=== PATIENT | male | born 1985 | race Caucasian/White ===

== ENCOUNTER 2017-01-06 12:47 | Emergency (ER) | payer OTHER ==
[~2017-01-06] VITALS: Ht 177.8 cm; Wt 157.6 kg
[2017-01-06 12:51] VITALS: BP 137/90; TEMP 36.5; Ht 177.8 cm; Wt 157.6 kg
[2017-01-06] MEDS ORDERED: TIZA4CAP PO (13:06)
[2017-01-06] MEDS ORDERED: ESCI10TA17 PO (13:06)
--- NOTE | 2017-01-06 13:18 | DIAGNOSTIC IMAGING REPORT ---
RIGHT SHOULDER 3 VIEWS HISTORY: R shoulder pain Right COMPARISON: None. FINDINGS: There is no fracture or dislocation. Soft tissues are unremarkable. No radiopaque foreign bodies. The right clavicle is intact. Mild AC joint arthrosis. IMPRESSION: No fractures. Mild AC joint arthrosis. Electronically signed by: Osito Youngblood M.D. 01/06/2017 1:16 PM Dictated Date/Time: 01/06/2017 1:15 PM
[2017-01-06] MEDS ORDERED: TRAM-10 PO (13:36)
[2017-01-06] MEDS ORDERED: IBUP-1451 PO (13:36)
[2017-01-06 13:52] VITALS: PULSE 87; O2SAT 96
--- NOTE | 2017-01-06 17:01 | EMERGENCY ROOM VISIT NOTE ---
History First contact with patient: 12:58 Chief Complaint: SHOULDER PAIN Stated Complaint: SHOULDER POPPING IN/OUT NUMBNESS IN BOTH HANDS History of Present Illness The patient is a 31 year old male who presents to the Emergency Room with complaints of persistent right shoulder pain after injuring his shoulder at work on Sunday. 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 The patient now reports that it feels like his shoulder once to pop in and out of place. He denies any pain extending into the neck region. He does report occasional paresthesias of the right upper extremity. The patient is [id number], and rates his discomfort an 8 out of 10. Review of Systems 10 system review was performed and was negative except for pertinent positives and negatives as indicated in history of present illness Past Medical/Surgical History Medical Problems: (1) No significant past medical history Surgical Problems: (1) No history of previous surgery Family History Unremarkable Social History Smoking Status: Current Every Day Smoker Alcohol Use: occasionally Drug Use: none Marital Status: single Occupation Status: employed Current/Historical Medications Scheduled Escitalopram (Lexapro), 20 MG PO DAILY Tizanidine (Zanaflex), 4 MG PO QPM Scheduled PRN Ibuprofen Tab (Motrin), 800 MG PO Q8H PRN for Pain Tramadol (Ultram), 1-2 TAB PO Q4H PRN for Pain Allergies Coded Allergies: Amoxicillin (Unverified Allergy, Severe, ANAPHYLAXIS, 01/06/17) Penicillins (Unverified Allergy, Severe, ANAPHYLAXIS, 01/06/17) Physical Exam Vital Signs Date Time Temp Pulse Resp B/P Pulse Ox O2 Delivery O2 Flow Rate FiO2 01/06/17 13:52 87 18 96 01/06/17 12:51 36.5 99 18 137/90 99 Room Air Physical Exam CONSTITUTIONAL: Morbidly obese male, alert and oriented X 3 with positive affect. Patient does not appear in any acute distress. HEENT: Normocephalic, atraumatic. Pupils equal, round and reactive. NECK: Full active range of motion without discomfort. RESPIRATORY: Clear to auscultation bilaterally with no wheezing, crackles, rhonchi or stridor. Deep breathing does not worsen the patient's discomfort. CARDIOVASCULAR: Regular rate and rhythm with no murmurs, rubs or gallops. GASTROINTESTINAL: Bowel sounds present in all quadrants. Soft and nontender to palpation. MUSCULOSKELETAL: Examination of the right shoulder does not show any obvious soft tissue edema, ecchymosis or erythema. The patient is tender over the bicipital groove and upper biceps region. No palpable bulging or ecchymosis noted. Resisted flexion worsens the patient's discomfort in the shoulder. He also has mild tenderness over the acromioclavicular joint. Minimal tenderness posteriorly. The patient has abduction and fourth flexion of approximately 90 , limited by discomfort. Gentle internal and external rotation does not cause significant discomfort. 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 Distal pulses are intact. INTEGUMENTARY: No rash or other significant dermatologic conditions noted. NEUROLOGIC: Right deltoid sensation is intact. Right hand and fingers are also grossly sensory intact. Deep tendon reflexes of the upper extremities are 2+ and symmetric bilaterally. Medical Decision & Procedures ER Provider Diagnostic Interpretation: My interpretation of right shoulder x-rays does not show any acute fractures or dislocation. Radiologist report is as follows: RIGHT SHOULDER 3 VIEWS HISTORY: R shoulder pain Right COMPARISON: None. FINDINGS: There is no fracture or dislocation. Soft tissues are unremarkable. No radiopaque foreign bodies. The right clavicle is intact. Mild AC joint arthrosis. IMPRESSION: No fractures. Mild AC joint arthrosis. ED Course Patient history and physical exam were performed. Nurse's notes were reviewed. Vital signs were reviewed, showing a blood pressure 137/90. X-rays of the right shoulder were normal. The patient was encouraged to follow-up with his Worker's Compensation approved orthopedic surgeon for further reevaluation and management. A sling was dispensed, and the patient was provided a note for no use of the right arm until released by orthopedics. Ibuprofen and Tylenol in alternating fashion as needed for pain relief. The patient was provided a prescription for ibuprofen 800 mg and Ultram 50 mg. The patient was happy with plan of care, voiced understanding of all discharge instructions, refused any analgesics while in the emergency department, and rated his pain a 4 out of 10 at the conclusion of my exam. Medical Decision Differentials considered included acute bursitis, rotator cuff injury, acute tendinitis, axillary plexitis and impingement syndrome. Impression Primary Impression: Right shoulder injury Additional Impression: Work related injury Departure Information Prescriptions Ibuprofen Tab (MOTRIN) 800 Mg Tab 800 MG PO Q8H Y for Pain, #30 TAB For Initial Treatment Prov: Dot, Kirk Garth,PA 01/06/17 Tramadol (Ultram) 50 Mg Tab 1-2 TAB PO Q4H Y for Pain, #20 TAB For Initial Treatment Prov: Kirk Chris PA 01/06/17 Referrals No Doctor, Assigned (PCP) Patient Instructions My [facility] Problem Qualifiers Primary Impression: Right shoulder injury Encounter type: initial encounter Qualified Codes: S49.91XA - Unspecified injury of right shoulder and upper arm, initial encounter
== END 2017-01-06 13:53 | disposition home or self-care (01) ==
LOC: C.EDB 12:50 → C.EDD 13:53
DX: S49.91XA Unspecified injury of right shoulder and upper arm, initial encounter (principal); X50.0XXA Overexertion from strenuous movement or load, initial encounter; Y99.0 Civilian activity done for income or pay; F17.200 Nicotine dependence, unspecified, uncomplicated

== ENCOUNTER 2017-09-02 13:24 | Inpatient (IN) | payer BC, OTHER ==
[~2017-09-02] VITALS: Ht 180.3 cm; Wt 167.5 kg
[~2017-09-02 13:24] MED LIST: ESCI10TA17 PO; TIZA4CAP PO
[2017-09-02] MEDS ORDERED: MoRPHine SULFATE 4 MG/ML 1 ML CARP\\VIAL IV STA (13:41)
[2017-09-02] MEDS ORDERED: ONDANSETRON INJ 2 MG/ML 2 ML VIAL IV STA (13:41)
[2017-09-02] MEDS ORDERED: ESCI1TAB10 PO (13:46)
[2017-09-02] MEDS ORDERED: LEVO25TA PO (13:46)
[2017-09-02] MEDS ORDERED: ALLO100T PO (13:46)
[2017-09-02 14:21] LABS: BASO % 0.2 %; BASO ABS # 0.02 K/uL (0-0.2); EOS % 0.2 %; EOS ABS # 0.02 K/uL (0-0.5); HEMATOCRIT 41.9 % (42-52); HEMOGLOBIN 14.4 g/dL (14.0-18.0); IG# 0.05 K/uL (0.00-0.02); LYMPH % 6.1 %; LYMPH ABS # 0.76 K/uL (1.2-3.4); MEAN CELL VOLUME 85.2 fL (80-100); MEAN CORPUSCULAR HEMOGLOBIN 29.3 pg (25-34); MEAN CORPUSCULAR HGB CONC 34.4 g/dl (32-36); MEAN PLATELET VOLUME 10.4 fL (7.4-10.4); MONO % 6.2 %; MONO ABS # 0.77 K/uL (0.11-0.59); NEUT % 86.9 %; PLATELET COUNT 129 K/uL (130-400); RED CELL DISTRIBUTION WIDTH CV 14.9 % (11.5-14.5); RED CELL DISTRIBUTION WIDTH SD 46.4 fL (36.4-46.3); WHITE BLOOD COUNT 12.52 K/uL (4.8-10.8)
[2017-09-02 14:31] LABS: INFLUENZA B ANTIGEN Neg for Influ B (NEG)
[2017-09-02] MEDS ORDERED: ACETAMINOPHEN 500 MG TAB PO ONE (14:31)
[2017-09-02 14:41] LABS: ALBUMIN 3.2 gm/dl (3.4-5.0); CREATININE 1.34 mg/dl (0.60-1.40)
[2017-09-02 14:43] LABS: INR 1.1 (0.9-1.1); PTT PATIENT 34.2 SECONDS (21.0-31.0); TOTAL PROTEIN 7.5 gm/dl (6.4-8.2)
[2017-09-02 15:15] LABS: INFLUENZA A PCR Neg for Influ A (NEG); INFLUENZA B PCR Neg for Influ B (NEG)
--- NOTE | 2017-09-02 15:46 | DIAGNOSTIC IMAGING REPORT ---
RIGHT LOWER EXTREMITY VENOUS DOPPLER CLINICAL HISTORY: Right leg pain. COMPARISON STUDY: No previous studies for comparison. TECHNIQUE: Sonography of the deep venous system of the right lower extremity was performed. Compression and augmentation were evaluated. FINDINGS: The right common femoral, superficial femoral and popliteal veins were compressible. Augmentation was normal. The calf vessels were suboptimally assessed on this exam due to suboptimal penetration. A few morphologically benign right inguinal lymph nodes are incidentally noted. IMPRESSION: Right calf vessels suboptimally visualized on this study but no evidence of deep venous thrombus within the right lower extremity. Electronically signed by: Mio Gomez M.D. 09/02/2017 3:45 PM Dictated Date/Time: 09/02/2017 3:44 PM
[2017-09-02] MEDS ORDERED: SULFAMETHOXAZOLE/TRIMETHOPRIM DS 800/160MG TAB PO STA (15:48)
[2017-09-02] MEDS ORDERED: CEFAZOLIN SOD 1000MG/5 ML IV PUSH IV STA (15:48)
[2017-09-02] MEDS ORDERED: IBUPROFEN 600 MG TAB PO STA (16:09)
[2017-09-02] MEDS ORDERED: CLINDAMYCIN 600 MG/54 ML D5W IV ONE (16:15)
[2017-09-02] MEDS ORDERED: LEVO50TA6 PO (17:27)
[2017-09-02] MEDS ORDERED: VANCOMYCIN INJ 1,000 MG in SODIUM CHLORIDE 0.9% 250ML 250 ML IV STA (17:29)
[2017-09-02 17:40] VITALS: O2SAT 100; Ht 180.3 cm; Wt 167.5 kg
--- NOTE | 2017-09-02 17:48 | EMERGENCY ROOM VISIT NOTE ---
History Report prepared by Braxton: Lindy Paz Under the Supervision of: Dr. Kraig De Jesus M.D. First contact with patient: 13:33 Chief Complaint: FEVER Stated Complaint: HIGH FEVER (104) VOMITING,DIARREAH, R LEG RASH History of Present Illness The patient is a 31 year old male who presents to the Emergency Room with complaints of persistent fever starting yesterday. He was sent to the ED from urgent care. Several days ago, the patient and his family had the stomach flu with vomiting and diarrhea. Yesterday, he started having a rash on his right leg which is painful and a fever of 104. He has a history of psoriasis. He is having some pain in his groin. He thinks that he might have pulled his groin while vomiting. He last vomited 2 days ago. He reports generalized weakness and body aches which started yesterday. He has been taking Tylenol and ibuprofen to no significant relief of his symptoms. He is currently feeling nauseous and dizzy. He denies any chest pain, SOB, abdominal pain, or cough. He is a smoker. He denies any history of blood clots. He was seen at an urgent care center and told to come here for evaluation of possible DVT. Source of History: patient, spouse/significant other Onset: yesterday Position: other (global) Symptom Intensity: 104 Quality: other (fever) Timing: other (persistent) Associated Symptoms: + nausea, + vomiting (resolved), + diarrhea, + weakness , + rash, No cough, No chest pain, No SOB, No abdominal pain Note: Pt reports body aches, groin pain. Review of Systems See HPI for pertinent positives & negatives. A total of 10 systems reviewed and were otherwise negative. Past Medical & Surgical Medical Problems: (1) Cellulitis (2) No significant past medical history Surgical Problems: (1) No history of previous surgery Family History Cancer Diabetes mellitus Heart disease Hypertension Kidney disease Kidney stones Seizures Social History Smoking Status: Current Every Day Smoker Alcohol Use: occasionally Drug Use: none Marital Status: single Occupation Status: employed Current/Historical Medications Scheduled Allopurinol (Zyloprim), 1 TAB PO DAILY Escitalopram Oxalate (Lexapro), 20 MG PO DAILY Levothyroxine Sodium (Levothyroxine Sodium), 1 TAB PO DAILY Allergies Coded Allergies: Amoxicillin (Unverified Allergy, Severe, ANAPHYLAXIS, 09/02/17) Penicillins (Unverified Allergy, Severe, ANAPHYLAXIS, 09/02/17) Azithromycin (Unverified Allergy, Unknown, , 09/02/17) Physical Exam Vital Signs Date Time Temp Pulse Resp B/P (MAP) Pulse Ox O2 Delivery O2 Flow Rate FiO2 09/02/17 16:11 38.6 09/02/17 15:23 37.8 82 20 134/76 100 Room Air 09/02/17 14:34 38.4 09/02/17 13:28 36.4 91 20 130/77 100 Room Air Physical Exam Constitutional: Vital signs reviewed. Eyes: Pupils are equal round reactive to light. Conjunctiva are noninjected. ENT: Pharynx is clear without erythema or exudate. Mucous membranes are moist. Neck supple without meningeal signs. Respiratory: Clear to auscultation bilaterally. Breath sounds are equal bilaterally. Cardiovascular: Regular rate and rhythm. No rubs or gallops. GI: Soft, nondistended and nontender. Bowel sounds are present. Musculoskeletal: Excoriated rash to the medial posterior ankle with erythema extending above the rash without increased warmth. No tenderness to rash. Tenderness to superior calf and the medial thigh. No rash in the groin or upper leg. Integumentary: No cyanosis. Neurological: The patient is awake and alert. No focal deficits. Psychiatric: Normal affect. Medical Decision & Procedures ER Provider Diagnostic Interpretation: Radiology results as stated below per my review and the radiologist's interpretation: RIGHT LOWER EXTREMITY VENOUS DOPPLER CLINICAL HISTORY: Right leg pain. COMPARISON STUDY: No previous studies for comparison. TECHNIQUE: Sonography of the deep venous system of the right lower extremity was performed. Compression and augmentation were evaluated. FINDINGS: The right common femoral, superficial femoral and popliteal veins were compressible. Augmentation was normal. The calf vessels were suboptimally assessed on this exam due to suboptimal penetration. A few morphologically benign right inguinal lymph nodes are incidentally noted. IMPRESSION: Right calf vessels suboptimally visualized on this study but no evidence of deep venous thrombus within the right lower extremity. Electronically signed by: Mio Gomez M.D. 09/02/2017 3:45 PM Dictated Date/Time: 09/02/2017 3:44 PM Laboratory Results 09/02/17 14:10 Red Blood Count 4.92, Mean Corpuscular Volume 85.2, Mean Corpuscular Hemoglobin 29.3, Mean Corpuscular Hemoglobin Concent 34.4, Mean Platelet Volume 10.4, Neutrophils (%) (Auto) 86.9, Lymphocytes (%) (Auto) 6.1, Monocytes (%) (Auto) 6.2, Eosinophils (%) (Auto) 0.2, Basophils (%) (Auto) 0.2, Neutrophils # (Auto) 10.90, Lymphocytes # (Auto) 0.76, Monocytes # (Auto) 0.77, Eosinophils # (Auto) 0.02, Basophils # (Auto) 0.02 09/02/17 14:10 Test 09/02/17 13:58 09/02/17 14:10 09/02/17 17:10 Influenza Type A (RT-PCR) Neg for Influ A (NEG) Influenza Type A Antigen Neg for Influ A (NEG) Influenza Type B Antigen Neg for Influ B (NEG) Influenza Type B (RT-PCR) Neg for Influ B (NEG) White Blood Count 12.52 K/uL (4.8-10.8) Red Blood Count 4.92 M/uL (4.7-6.1) Hemoglobin 14.4 g/dL (14.0-18.0) Hematocrit 41.9 % (42-52) Mean Corpuscular Volume 85.2 fL (80-100) Mean Corpuscular Hemoglobin 29.3 pg (25-34) Mean Corpuscular Hemoglobin Concent 34.4 g/dl (32-36) Platelet Count 129 K/uL (130-400) Mean Platelet Volume 10.4 fL (7.4-10.4) Neutrophils (%) (Auto) 86.9 % Lymphocytes (%) (Auto) 6.1 % Monocytes (%) (Auto) 6.2 % Eosinophils (%) (Auto) 0.2 % Basophils (%) (Auto) 0.2 % Neutrophils # (Auto) 10.90 K/uL (1.4-6.5) Lymphocytes # (Auto) 0.76 K/uL (1.2-3.4) Monocytes # (Auto) 0.77 K/uL (0.11-0.59) Eosinophils # (Auto) 0.02 K/uL (0-0.5) Basophils # (Auto) 0.02 K/uL (0-0.2) RDW Standard Deviation 46.4 fL (36.4-46.3) RDW Coefficient of Variation 14.9 % (11.5-14.5) Immature Granulocyte % (Auto) 0.4 % Immature Granulocyte # (Auto) 0.05 K/uL (0.00-0.02) Prothrombin Time 11.5 SECONDS (9.0-12.0) Prothromb Time International Ratio 1.1 (0.9-1.1) Activated Partial Thromboplast Time 34.2 SECONDS (21.0-31.0) Partial Thromboplastin Ratio 1.3 Anion Gap 5.0 mmol/L (3-11) Est Creatinine Clear Calc Drug Dose 125.5 ml/min Estimated GFR () 80.7 Estimated GFR (Non- 69.6 BUN/Creatinine Ratio 10.3 (10-20) Calcium Level 9.0 mg/dl (8.5-10.1) Total Bilirubin 2.8 mg/dl (0.2-1) Direct Bilirubin 0.7 mg/dl (0-0.2) Aspartate Amino Transf (AST/SGOT) 30 U/L (15-37) Alanine Aminotransferase (ALT/SGPT) 57 U/L (12-78) Alkaline Phosphatase 63 U/L (45-117) Total Protein 7.5 gm/dl (6.4-8.2) Albumin 3.2 gm/dl (3.4-5.0) Lyme Disease IgG Antibody NEG (NEG) Lyme Disease IgM Antibody NEG (NEG) Laboratory results as reviewed by me. Medications Administered Medications (Trade) Dose Ordered Sig/Blanca Route Start Time Stop Time Status Last Admin Dose Admin Morphine Sulfate (MoRPHine SULFATE INJ) 4 mg NOW STAT IV 09/02/17 13:41 09/02/17 13:45 DC 09/02/17 14:29 4 MG Ondansetron HCl (Zofran Inj) 4 mg NOW STAT IV 09/02/17 13:41 09/02/17 13:45 DC 09/02/17 14:28 4 MG Acetaminophen (Tylenol Tab) 1,000 mg STK-MED ONCE PO 09/02/17 14:31 09/02/17 14:32 DC 09/02/17 14:33 1,000 MG Ibuprofen (Motrin Tab) 600 mg NOW STAT PO 09/02/17 16:09 09/02/17 16:10 DC 09/02/17 16:17 600 MG Clindamycin Phosphate (Cleocin 600mg/ 54ml D5W) 600 mg ONE ONCE IV 09/02/17 16:15 09/02/17 16:16 DC 09/02/17 16:15 600 MG ED Course 1335: The patient was evaluated in room B11B. A complete history and physical exam was performed. 1341: Zofran Inj 4 mg IV, Morphine Sulfate 4 mg IV. 1431: Acetaminophen 1000 mg PO. 1549: I reevaluated the patient. I discussed the test results with his . She states he has taken Keflex before without allergy. 1606: I reevaluated the patient. He appeared flushed so I took his temperature which was 38.6. He states he is not sure if he has had Keflex. With amoxicillin , he might have had some trouble breathing, but he is not sure. He will get clindamycin. 1609: Ibuprofen 600 mg PO. 1615: Clindamycin Phosphate 600 mg IV. 1659: I reevaluated the patient. He is not feeling well. He has tenderness to the entire right leg and lymphadenopathy in the groin. I recommended hospitalization for IV antibiotics. They verbalized agreement of the treatment plan. He will be evaluated for further management. 1704: [facility] the patient and his results. The patient will be further evaluated by him. Medical Decision This is a 31-year-old male who presents with fever, rash and leg pain. Differential diagnosis includes cellulitis, lymphangitis, DVT, superficial, colitis, influenza. I did perform a limited focused review of portions of the patient's old chart on the electronic medical record. The patient has had no recent pertinent visits to this hospital. I did evaluate the patient as noted above. IV access was established. I did treat the patient with IV morphine and Zofran. I did order and review the patient's blood work as noted in the electronic medical record. His white blood cell count is elevated. Bilirubin is slightly elevated as well. He does not have any abdominal pain. I did order a Doppler ultrasound of the right leg.. I did review the images myself as well as the radiology report as described above. There is no evidence of DVT. Rapid flu testing is negative. PCR flu testing and Lyme testing are negative. I did reassess the patient. I did treat him with clindamycin IV due to his penicillin allergy. The patient looks very flushed and said he felt extremely warm and so I rechecked his temperature. He was 38.6. I did treat him with Motrin. I did later reassessed the patient. He does appear more ill than he did when he initially presented and I was concerned about possibility of bacteremia or sepsis. I did recommend hospitalization for further evaluation and IV antibiotics. I did discuss the case with the hospitalist and immigration case manager. Medication Reconcilliation Current Medication List: was personally reviewed by me Blood Pressure Screening Patient's blood pressure: Elevated blood pressure Blood pressure disposition: Referred to PCP Consults Time Called: 1702 Consulting Physician: Dr. Willoughby of [facility] hospitalist service Returned Call: 1704 I spoke with him. We discussed the patient and his results. The patient will be further evaluated by him. Impression Primary Impression: Cellulitis of right leg Additional Impression: Lymphangitis Scribe Attestation The scribe's documentation has been prepared under my direct and personally reviewed by me in its entirety. I confirm that the note above accurately reflects all work, treatment, procedures, and medical decision making performed by me. Departure Information Dispostion Being Evaluated By Hospitalist Referrals Fatimah Martínez (PCP) Patient Instructions My [facility] Problem Qualifiers
--- NOTE | 2017-09-02 18:16 | History and Physical ---
History & Physical Date & Time of Service: Sep 02, 2017 at 17:52 Chief Complaint: High Fever (104) Vomiting,Diarreah, R Leg Rash Primary Care Physician: Fatimah Martínez History of Present Illness Source: patient, family, clinic records This is a 31 year old male with a PMH of morbid obesity, hypothyroidism, psoriasis, tobacco use disorder, obesity hypoventilation syndrome, gout, depression - presents with two days of fevers/chills - he tried tylenol at home but this did not work. States that his family was sick with the "stomach flu" and had nausea/vomiting. His last vomiting episode was on Sunday, 08/31. He states that his R LE became red, tender, swollen. He went to urgent care today, and he was sent to the [facility] ER to r/o DVT. Upon arrival, dopplers did not show any DVTs, but patient had a fever, and elevated white count. He was ill- appearing and decision was made to admit. Currently, he denies chest pain/ shortness of breath. He has +fevers, +chills. Occasional +nausea/vomiting. + lower extremity pain, warmth. Family History Cancer Diabetes mellitus Heart disease Hypertension Kidney disease Kidney stones Seizures Social History Smoking Status: Current Every Day Smoker Drug Use: none Marital Status: single Occupational Status: employed Allergies Coded Allergies: Amoxicillin (Unverified Allergy, Severe, ANAPHYLAXIS, 09/02/17) Penicillins (Unverified Allergy, Severe, ANAPHYLAXIS, 09/02/17) Azithromycin (Unverified Allergy, Unknown, , 09/02/17) Home Medications Scheduled Allopurinol (Zyloprim), 1 TAB PO DAILY Escitalopram Oxalate (Lexapro), 20 MG PO DAILY Levothyroxine Sodium (Levothyroxine Sodium), 1 TAB PO DAILY Review of Systems Constitutional: No fever, No chills Respiratory: No cough, No sputum, No shortness of breath, No dyspnea on exertion, No dyspnea at rest Cardiovascular: + edema, No chest pain, No palpitations Abdomen: + nausea, + vomiting, No pain, No diarrhea, No constipation, No GI bleeding Musculoskeletal: + joint pain Genitourinary - Male: No dysuria, No urinary frequency Neurologic: No vertigo, No balance problems Psychiatric: No depression symptoms (controlled with medications), No anxiety, No insomnia Hematologic / Lymphatic: No abnormal bleeding/bruising Integumentary: + rash, + new/changing skin lesions, No itch Allergic / Immunologic: No environmental allergies, No seasonal allergies Physical Exam Vital Signs Date Time Temp Pulse Resp B/P (MAP) Pulse Ox O2 Delivery O2 Flow Rate FiO2 09/02/17 16:11 38.6 09/02/17 15:23 37.8 82 20 134/76 100 Room Air 09/02/17 14:34 38.4 09/02/17 13:28 36.4 91 20 130/77 100 Room Air General Appearance: no apparent distress, + obese Head: normocephalic, atraumatic Eyes: normal inspection ENT: hearing grossly normal Neck: supple Respiratory/Chest: no respiratory distress, no accessory muscle use, + wheezing (mild end expiratory wheezing) Cardiovascular: regular rate, rhythm, no JVD, no murmur, normal peripheral pulses Abdomen/GI: normal bowel sounds, non tender, soft Extremities/Musculoskelatal: + pertinent finding (+erythematous, warm to touch R LE (lower anterior groves), tender to palpation) Neurologic/Psych: 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, no motor/sensory deficits, alert, normal mood/affect, oriented x 3 Skin: + rash, + pertinent finding (erythema of R LE) Lymphatic: no adenopathy Diagnostics Laboratory Results Results Past 24 Hours Test 09/02/17 13:58 09/02/17 14:10 09/02/17 17:51 Range/Units Influenza Type A (RT-PCR) Neg for Influ A NEG Influenza Type A Antigen Neg for Influ A NEG Influenza Type B Antigen Neg for Influ B NEG Influenza Type B (RT-PCR) Neg for Influ B NEG White Blood Count 12.52 4.8-10.8 K/uL Red Blood Count 4.92 4.7-6.1 M/uL Hemoglobin 14.4 14.0-18.0 g/dL Hematocrit 41.9 42-52 % Mean Corpuscular Volume 85.2 80-100 fL Mean Corpuscular Hemoglobin 29.3 25-34 pg Mean Corpuscular Hemoglobin Concent 34.4 32-36 g/dl Platelet Count 129 130-400 K/uL Mean Platelet Volume 10.4 7.4-10.4 fL Neutrophils (%) (Auto) 86.9 % Lymphocytes (%) (Auto) 6.1 % Monocytes (%) (Auto) 6.2 % Eosinophils (%) (Auto) 0.2 % Basophils (%) (Auto) 0.2 % Neutrophils # (Auto) 10.90 1.4-6.5 K/uL Lymphocytes # (Auto) 0.76 1.2-3.4 K/uL Monocytes # (Auto) 0.77 0.11-0.59 K/uL Eosinophils # (Auto) 0.02 0-0.5 K/uL Basophils # (Auto) 0.02 0-0.2 K/uL RDW Standard Deviation 46.4 36.4-46.3 fL RDW Coefficient of Variation 14.9 11.5-14.5 % Immature Granulocyte % (Auto) 0.4 % Immature Granulocyte # (Auto) 0.05 0.00-0.02 K/uL Prothrombin Time 11.5 9.0-12.0 SECONDS Prothromb Time International Ratio 1.1 0.9-1.1 Activated Partial Thromboplast Time 34.2 21.0-31.0 SECONDS Partial Thromboplastin Ratio 1.3 Sodium Level 135 136-145 mmol/L Potassium Level 4.0 3.5-5.1 mmol/L Chloride Level 102 98-107 mmol/L Carbon Dioxide Level 28 21-32 mmol/L Anion Gap 5.0 3-11 mmol/L Blood Urea Nitrogen 14 7-18 mg/dl Creatinine 1.34 0.60-1.40 mg/dl Est Creatinine Clear Calc Drug Dose 125.5 ml/min Estimated GFR () 80.7 Estimated GFR (Non- 69.6 BUN/Creatinine Ratio 10.3 10-20 Random Glucose 165 70-99 mg/dl Calcium Level 9.0 8.5-10.1 mg/dl Total Bilirubin 2.8 0.2-1 mg/dl Direct Bilirubin 0.7 0-0.2 mg/dl Aspartate Amino Transf (AST/SGOT) 30 15-37 U/L Alanine Aminotransferase (ALT/SGPT) 57 12-78 U/L Alkaline Phosphatase 63 45-117 U/L Total Protein 7.5 6.4-8.2 gm/dl Albumin 3.2 3.4-5.0 gm/dl Lyme Disease IgG Antibody NEG NEG Lyme Disease IgM Antibody NEG NEG Microbiology Results 09/02/17 Blood Culture, Received Pending 09/02/17 Blood Culture, Received Pending Diagnostic Radiology RIGHT LOWER EXTREMITY VENOUS DOPPLER CLINICAL HISTORY: Right leg pain. COMPARISON STUDY: No previous studies for comparison. TECHNIQUE: Sonography of the deep venous system of the right lower extremity was performed. Compression and augmentation were evaluated. FINDINGS: The right common femoral, superficial femoral and popliteal veins were compressible. Augmentation was normal. The calf vessels were suboptimally assessed on this exam due to suboptimal penetration. A few morphologically benign right inguinal lymph nodes are incidentally noted. IMPRESSION: Right calf vessels suboptimally visualized on this study but no evidence of deep venous thrombus within the right lower extremity. Impression Assessment and Plan This is a 31 year old male with a PMH of morbid obesity, hypothyroidism, psoriasis, tobacco use disorder, obesity hypoventilation syndrome, gout, depression - presents with two days of fevers/chills Sepsis secondary to Cellulitis R LE cellulitis Dopplers - negative for acute DVTs elevated procalcitonin, elevated WBC, +fevers meets sepsis criteria will do Vancomycin for now blood cultures pending IVFs added Thrombocytopenia likely from sepsis for now, giving Lovenox, will monitor platelets Hypothyroidism continue Synthroid Tobacco Use Disorder counseled on tobacco cessation refusing nicotine patch will think about ways to stop Depression continue Lexapro DVT ppx Lovenox; monitor platelets FULL CODE VTE Prophylaxis VTE Risk Assessment Done? Y/N: Yes Risk Level: Moderate
--- NOTE | 2017-09-02 18:38 | DIAGNOSTIC IMAGING REPORT ---
CHEST ONE VIEW PORTABLE CLINICAL HISTORY: r/o pna COMPARISON STUDY: No previous studies for comparison. FINDINGS: Lung volumes are mildly diminished. No consolidation is identified and there is no evidence for pulmonary edema. Cardiomediastinal silhouette is unremarkable. IMPRESSION: No acute cardiopulmonary findings. Electronically signed by: Mio Gomez M.D. 09/02/2017 6:36 PM Dictated Date/Time: 09/02/2017 6:36 PM
[2017-09-02 19:00] VITALS: BP 144/98; PULSE 108; TEMP 37.7; O2SAT 100
[2017-09-02] MEDS ORDERED: VANCOMYCIN INJ 2,750 MG in SODIUM CHLORIDE 0.9% 500ML 500 ML IV ONE (20:00)
[2017-09-02] MEDS ORDERED: VANCOMYCIN CONSULT ACTIVE PRN (20:00)
[2017-09-02] MEDS: SODIUM CHLORIDE 0.9% 1000ML 1,000 ML IV SCH (20:21)
[2017-09-02] MEDS ORDERED: DAPTOMYCIN CONSULT ACTIVE PRN (20:30)
[2017-09-02] MEDS: DAPTOMYCIN IV SCH (20:46)
[2017-09-02] MEDS ORDERED: VANCOMYCIN INJ 1,000 MG in SODIUM CHLORIDE 0.9% 250ML 250 ML IV SCH (21:00)
[2017-09-02 23:05] VITALS: BP 157/74; PULSE 100; TEMP 39.7; O2SAT 99
[2017-09-02] MEDS: ACETAMINOPHEN 325 MG TAB PO PRN (23:10)
[2017-09-03] MEDS ORDERED: KETOROLAC TROMETHAMINE 30 MG/ML VIAL IV STA (01:06)
[2017-09-03] MEDS ORDERED: IBUPROFEN 200 MG TAB PO PRN (01:15)
[2017-09-03] MEDS ORDERED: MoRPHine SULFATE 4 MG/ML 1 ML CARP\\VIAL IV PRN (01:15)
[2017-09-03] MEDS ORDERED: KETOROLAC TROMETHAMINE 30 MG/ML VIAL IV PRN (01:15)
[2017-09-03] MEDS ORDERED: TRAMADOL HCL 50 MG TAB PO PRN (01:15)
--- NOTE | 2017-09-03 01:28 | Progress Note ---
Internal Med Progress Note Date of Service: Sep 03, 2017. Provider Documentation: Made aware by RN of recurrent fever spikes despite IV Clindamycin, Daptomycin administration yesterday. Right leg swelling progressing as per RN. Loose stools as per RN. AP Sepsis Possible sources : RLE cellulitis ? UTI (nitrite positive UA wo UTI sx) Diarrhea rule out C. difficile Add Cefepime to Daptomycin stool C. difficile, Flagyl for now for presumptive C. difficile in consideration of sepsis criteria, DC Flagyl if C. difficile negative Will relay to AM provider. Vital Signs: Date Time Temp Pulse Resp B/P (MAP) Pulse Ox O2 Delivery O2 Flow Rate FiO2 09/03/17 00:30 Room Air 09/02/17 23:05 39.7 100 18 157/74 (101) 99 Room Air 09/02/17 19:00 Room Air 09/02/17 19:00 37.7 108 18 144/98 (113) 100 Room Air 09/02/17 18:02 38.1 101 16 122/79 100 Room Air 09/02/17 17:45 39.3 09/02/17 17:40 100 Room Air 09/02/17 16:11 38.6 09/02/17 15:23 37.8 82 20 134/76 100 Room Air 09/02/17 14:34 38.4 09/02/17 13:28 36.4 91 20 130/77 100 Room Air Lab Results: Results Past 24 Hours Test 09/02/17 13:58 09/02/17 14:10 09/02/17 17:51 09/02/17 19:45 Range/Units Influenza Type A (RT-PCR) Neg for Influ A NEG Influenza Type A Antigen Neg for Influ A NEG Influenza Type B Antigen Neg for Influ B NEG Influenza Type B (RT-PCR) Neg for Influ B NEG White Blood Count 12.52 4.8-10.8 K/uL Red Blood Count 4.92 4.7-6.1 M/uL Hemoglobin 14.4 14.0-18.0 g/dL Hematocrit 41.9 42-52 % Mean Corpuscular Volume 85.2 80-100 fL Mean Corpuscular Hemoglobin 29.3 25-34 pg Mean Corpuscular Hemoglobin Concent 34.4 32-36 g/dl Platelet Count 129 130-400 K/uL Mean Platelet Volume 10.4 7.4-10.4 fL Neutrophils (%) (Auto) 86.9 % Lymphocytes (%) (Auto) 6.1 % Monocytes (%) (Auto) 6.2 % Eosinophils (%) (Auto) 0.2 % Basophils (%) (Auto) 0.2 % Neutrophils # (Auto) 10.90 1.4-6.5 K/uL Lymphocytes # (Auto) 0.76 1.2-3.4 K/uL Monocytes # (Auto) 0.77 0.11-0.59 K/uL Eosinophils # (Auto) 0.02 0-0.5 K/uL Basophils # (Auto) 0.02 0-0.2 K/uL RDW Standard Deviation 46.4 36.4-46.3 fL RDW Coefficient of Variation 14.9 11.5-14.5 % Immature Granulocyte % (Auto) 0.4 % Immature Granulocyte # (Auto) 0.05 0.00-0.02 K/uL Prothrombin Time 11.5 9.0-12.0 SECONDS Prothromb Time International Ratio 1.1 0.9-1.1 Activated Partial Thromboplast Time 34.2 21.0-31.0 SECONDS Partial Thromboplastin Ratio 1.3 Sodium Level 135 136-145 mmol/L Potassium Level 4.0 3.5-5.1 mmol/L Chloride Level 102 98-107 mmol/L Carbon Dioxide Level 28 21-32 mmol/L Anion Gap 5.0 3-11 mmol/L Blood Urea Nitrogen 14 7-18 mg/dl Creatinine 1.34 0.60-1.40 mg/dl Est Creatinine Clear Calc Drug Dose 125.5 ml/min Estimated GFR () 80.7 Estimated GFR (Non- 69.6 BUN/Creatinine Ratio 10.3 10-20 Random Glucose 165 70-99 mg/dl Calcium Level 9.0 8.5-10.1 mg/dl Total Bilirubin 2.8 0.2-1 mg/dl Direct Bilirubin 0.7 0-0.2 mg/dl Aspartate Amino Transf (AST/SGOT) 30 15-37 U/L Alanine Aminotransferase (ALT/SGPT) 57 12-78 U/L Alkaline Phosphatase 63 45-117 U/L Total Creatine Kinase 52 39-308 U/L Total Protein 7.5 6.4-8.2 gm/dl Albumin 3.2 3.4-5.0 gm/dl Procalcitonin 1.60 0-0.5 ng/ml Lyme Disease IgG Antibody NEG NEG Lyme Disease IgM Antibody NEG NEG Lactic Acid Level 1.4 0.4-2.0 mmol/L Urine Color ORANGE Urine Appearance CLEAR CLEAR Urine pH 6.0 4.5-7.5 Urine Specific [place] 1.025 1.000-1.030 Urine Protein 2+ NEG Urine Glucose (UA) NEG NEG Urine Ketones NEG NEG Urine Occult Blood NEG NEG Urine Nitrite POS NEG Urine Bilirubin 1+ NEG Urine Urobilinogen NEG NEG Urine Leukocyte Esterase TRACE NEG Urine WBC (Auto) 1-5 0-5 /hpf Urine RBC (Auto) 0-4 0-4 /hpf Urine Hyaline Casts (Auto) 0 0-5 /lpf Urine Epithelial Cells (Auto) 0-5 0-5 /lpf Urine Bacteria (Auto) NEG NEG Test 09/03/17 05:43 Range/Units White Blood Count 11.60 4.8-10.8 K/uL Red Blood Count 4.47 4.7-6.1 M/uL Hemoglobin 13.3 14.0-18.0 g/dL Hematocrit 38.0 42-52 % Mean Corpuscular Volume 85.0 80-100 fL Mean Corpuscular Hemoglobin 29.8 25-34 pg Mean Corpuscular Hemoglobin Concent 35.0 32-36 g/dl RDW Standard Deviation 46.8 36.4-46.3 fL RDW Coefficient of Variation 15.1 11.5-14.5 % Platelet Count 130 130-400 K/uL Mean Platelet Volume 10.7 7.4-10.4 fL Microbiology Results 09/02/17 Blood Culture, Received Pending 09/02/17 Blood Culture, Received Pending 09/03/17 C.difficile Toxin B Gene (PCR), Received Pending 09/02/17 Urine Culture, Received Pending 09/03/17 Gram Stain, Received Pending 09/03/17 Wound Culture, Received Pending
[2017-09-03] MEDS: CEFEPIME IV 2,000 MG in SYRINGE 7.5 ML IV SCH ×2 (01:58→13:33)
[2017-09-03] MEDS: METRONIDAZOLE / NSS 500 MG in PREMIXED NSS 100 ML IV SCH ×2 (04:15→11:02)
[2017-09-03] MEDS: LEVOTHYROXINE 50 MCG TAB PO SCH (05:42)
[2017-09-03 06:21] LABS: HEMOGLOBIN 13.3 g/dL (14.0-18.0); MEAN CORPUSCULAR HEMOGLOBIN 29.8 pg (25-34); MEAN PLATELET VOLUME 10.7 fL (7.4-10.4); PLATELET COUNT 130 K/uL (130-400); RED CELL DISTRIBUTION WIDTH CV 15.1 % (11.5-14.5); RED CELL DISTRIBUTION WIDTH SD 46.8 fL (36.4-46.3)
[2017-09-03 06:59] LABS: CALCIUM 8.5 mg/dl (8.5-10.1); CREATININE 1.16 mg/dl (0.60-1.40); POTASSIUM 3.5 mmol/L (3.5-5.1)
[2017-09-03] MEDS: SODIUM CHLORIDE 0.9% 1000ML 1,000 ML IV SCH ×2 (07:08→19:48)
[2017-09-03 07:11] VITALS: BP 112/61; PULSE 73; TEMP 36.4; O2SAT 98
[2017-09-03] MEDS ORDERED: MAGNESIUM SULFATE 1GM / D5W 1 GM in PREMIXED IN D5W 100 ML IV ONE (07:15)
[2017-09-03 08:00] VITALS: O2SAT 98
[2017-09-03] MEDS ORDERED: CEFEPIME CONSULT ACTIVE PRN (08:00)
[2017-09-03] MEDS: ESCITALOPRAM OXALATE 20 MG TAB PO SCH (08:29)
[2017-09-03 08:35] LABS: HEMOGLOBIN A1C 4.8 % (4.5-5.6)
--- NOTE | 2017-09-03 10:06 | Progress Note ---
Progress Note Date of Service Sep 03, 2017. Progress Note ID Consult Dictated #[id number] A/P: 1. RLE Cellulitis 2. Fever -continue abx, follow wound and blood cultures -thank you
--- NOTE | 2017-09-03 10:07 | INFECT. DISEASE CONSULTATION ---
DATE OF CONSULTATION: 09/03/2017 HISTORY OF PRESENT ILLNESS: This is a 31-year-old gentleman who was admitted to the hospital after he had worsening right lower extremity pain, swelling and redness. He states that this began 2 days ago. He noticed pain and redness in his right lower extremity. He denies previous episodes of cellulitis. He did not seek care for this as an outpatient. He continued to have fevers and he went to an urgent care center yesterday. There was concern at urgent care for DVT and he was subsequently sent to the Emergency Room. He did have a Doppler in the ER which was negative for DVT. Blood cultures and wound cultures were obtained. Blood culture is pending. Wound culture has few gram positive cocci on Gram stain. He was placed on daptomycin, Flagyl and cefepime. He also received a dose of clindamycin in the ER. He did have a Lyme flu and a UA which were negative. His white count was initially 12, it is down to 11 today. His chest x-ray was negative. On my examination, he states he is feeling better. He did have significant fever throughout the night with a T-max of 39.7 and he did have chills associated with this. He is feeling much better today. He denies any chest pain, cough, shortness of breath, nausea, vomiting or diarrhea. He has no urinary complaints. He states his appetite has been poor. He states that his legs feel stiff today. He continues to have pain but states overall it has improved. His remaining review of systems is unremarkable. PAST MEDICAL HISTORY: Significant for obesity, hyperthyroidism, psoriasis, obesity hypoventilation syndrome, gout and depression. PAST SURGICAL HISTORY: Unremarkable. FAMILY HISTORY: Unremarkable. SOCIAL HISTORY: Significant for daily tobacco use. He denies any alcohol or drug use. ALLERGIES: HE HAS ALLERGIES TO AZITHROMYCIN AND PENICILLIN. CURRENT MEDICATIONS: Include Lexapro, cefepime, Synthroid, Flagyl, Advil, Ultram, morphine, Toradol, daptomycin. PHYSICAL EXAMINATION: VITAL SIGNS: T-max is 39.7, current temperature is 36.4, pulse 73, respiratory rate 20, blood pressure 112/61, oxygen saturation is 98-100% on room air. GENERAL: He is awake, alert and oriented x3. He is in no acute distress. HEENT: Mucous membranes are moist. Extraocular muscles are intact. HEART: Regular. LUNGS: Clear bilaterally. ABDOMEN: Soft, nontender, nondistended. EXTREMITIES: There is no lower extremity edema bilaterally. Examination of the right leg does reveal areas of erythema especially at the area of the ankle. There is a chronic wound consistent with a history of psoriasis. There is some streaking into the medial left great popliteal fossa and into the medial thigh. There is warmth and tenderness associated with this. LABORATORY STUDIES: CBC today reveals a white blood cell count of 11.6, hemoglobin 13.3 and platelets are 130. Chemistry panel reveals a sodium of 134, potassium 3.5, chloride 102, bicarb 23, BUN 15, creatinine 1.1, glucose is 110. Procalcitonin was 1.6. UA is negative. Flu swab is negative. Lyme disease titer is negative. C. diff is pending. Wound culture has few GPCs. Blood cultures are pending. He did have a chest x-ray which was unremarkable in the ER. Dopplers were negative for DVT. ASSESSMENT AND PLAN: Right lower extremity cellulitis. He will remain on antibiotics pending the results of blood and wound cultures. We will follow along with you. Thank you for this consultation.
--- NOTE | 2017-09-03 11:52 | Progress Note ---
Subjective Date of Service: Sep 03, 2017. Subjective Pt evaluation today including: conversation w/ patient, physical exam, lab review, review of studies, review of inpatient medication list Saw/examined the patient in room 455 Feeling much better this morning. last evening, he had some fevers, diarrhea vancomycin changed to daptomycin last evening, ID consulted due to worsening cellulitis, Cefepime was also added C. diff drawn He states this morning, his leg is no longer tender, just warm to touch He feels warm, but fever broke this morning. Problem List Medical Problems: (1) Cellulitis of right leg Status: Acute (2) Lymphangitis Status: Acute (3) Right shoulder injury Status: Acute (4) Work related injury Status: Acute Review of Systems Constitutional: No fever, No chills Respiratory: No shortness of breath Cardiac: No chest pain Heme: No abnormal bleeding/bruising Medications Current Inpatient Medications Medications (Trade) Dose Ordered Sig/Blanca Route Start Time Stop Time Status Last Admin Dose Admin Sodium Chloride 1,000 ml @ 100 mls/hr Q10H IV 09/02/17 19:30 10/02/17 19:29 09/03/17 07:08 100 MLS/HR Acetaminophen (Tylenol Tab) 650 mg Q4H PRN PO 09/02/17 17:45 10/02/17 17:44 09/02/17 23:10 650 MG Escitalopram Oxalate (Lexapro Tab) 20 mg DAILY PO 09/03/17 08:00 10/03/17 08:59 09/03/17 08:29 20 MG Levothyroxine Sodium (Synthroid Tab) 50 mcg DAILYBB PO 09/03/17 06:30 10/03/17 06:59 09/03/17 05:42 50 MCG Miscellaneous Information (Order Awaiting Action) 1 ea QS N/A 09/03/17 00:00 10/03/17 00:00 Daptomycin 675 mg/ Syringe 13.5 ml @ 6.75 mls/ min Q24H IV 09/02/17 21:00 09/12/17 20:59 09/02/17 20:46 6.75 MLS/MIN Daptomycin (Consult) 1 ea UD PRN N/A 09/02/17 20:30 10/02/17 20:29 Ibuprofen (Advil Tab) 400 mg Q6H PRN PO 09/03/17 01:15 10/03/17 01:14 09/03/17 01:57 400 MG Tramadol HCl (Ultram Tab) not relieved ... Q6H PRN PO 09/03/17 01:15 10/03/17 01:14 Morphine Sulfate (MoRPHine SULFATE INJ) 4 mg Q6H PRN IV 09/03/17 01:15 09/17/17 01:14 Ketorolac Tromethamine (Toradol Inj) 30 mg Q6H PRN IV 09/03/17 01:15 09/08/17 01:14 Cefepime HCl 2000 mg/Syringe 20 ml @ 5 mls/min Q12H IV 09/03/17 02:00 09/13/17 01:59 09/03/17 01:58 5 MLS/MIN Cefepime HCl (Consult) 1 ea UD PRN N/A 09/03/17 08:00 10/03/17 07:59 Metronidazole 500 mg/Prmx 100 ml @ 100 mls/hr Q8H IV 09/03/17 03:00 09/13/17 02:59 09/03/17 11:02 100 MLS/HR Objective Vital Signs Date Time Temp Pulse Resp B/P (MAP) Pulse Ox O2 Delivery O2 Flow Rate FiO2 09/03/17 08:00 98 Room Air 09/03/17 07:11 36.4 73 20 112/61 (78) 98 Room Air 09/03/17 00:30 Room Air 09/02/17 23:05 39.7 100 18 157/74 (101) 99 Room Air 09/02/17 19:00 Room Air 09/02/17 19:00 37.7 108 18 144/98 (113) 100 Room Air 09/02/17 18:02 38.1 101 16 122/79 100 Room Air 09/02/17 17:45 39.3 09/02/17 17:40 100 Room Air 09/02/17 16:11 38.6 09/02/17 15:23 37.8 82 20 134/76 100 Room Air 09/02/17 14:34 38.4 09/02/17 13:28 36.4 91 20 130/77 100 Room Air Physical Exam General Appearance: no apparent distress, + obese Respiratory/Chest: lungs clear, normal breath sounds, no respiratory distress, no accessory muscle use Cardiovascular: regular rate, rhythm, no edema, no murmur Extremities: + pertinent finding (redness, erythema persists in the R LE, warm to touch, less tender to palpation, seems to be subsiding) Laboratory Results Last 24 Hours Test 09/02/17 13:58 09/02/17 14:10 09/02/17 17:51 09/02/17 19:45 Influenza Type A (RT-PCR) Neg for Influ A Influenza Type A Antigen Neg for Influ A Influenza Type B Antigen Neg for Influ B Influenza Type B (RT-PCR) Neg for Influ B White Blood Count 12.52 K/uL Red Blood Count 4.92 M/uL Hemoglobin 14.4 g/dL Hematocrit 41.9 % Mean Corpuscular Volume 85.2 fL Mean Corpuscular Hemoglobin 29.3 pg Mean Corpuscular Hemoglobin Concent 34.4 g/dl Platelet Count 129 K/uL Mean Platelet Volume 10.4 fL Neutrophils (%) (Auto) 86.9 % Lymphocytes (%) (Auto) 6.1 % Monocytes (%) (Auto) 6.2 % Eosinophils (%) (Auto) 0.2 % Basophils (%) (Auto) 0.2 % Neutrophils # (Auto) 10.90 K/uL Lymphocytes # (Auto) 0.76 K/uL Monocytes # (Auto) 0.77 K/uL Eosinophils # (Auto) 0.02 K/uL Basophils # (Auto) 0.02 K/uL RDW Standard Deviation 46.4 fL RDW Coefficient of Variation 14.9 % Immature Granulocyte % (Auto) 0.4 % Immature Granulocyte # (Auto) 0.05 K/uL Prothrombin Time 11.5 SECONDS Prothromb Time International Ratio 1.1 Activated Partial Thromboplast Time 34.2 SECONDS Partial Thromboplastin Ratio 1.3 Sodium Level 135 mmol/L Potassium Level 4.0 mmol/L Chloride Level 102 mmol/L Carbon Dioxide Level 28 mmol/L Anion Gap 5.0 mmol/L Blood Urea Nitrogen 14 mg/dl Creatinine 1.34 mg/dl Est Creatinine Clear Calc Drug Dose 125.5 ml/min Estimated GFR () 80.7 Estimated GFR (Non- 69.6 BUN/Creatinine Ratio 10.3 Random Glucose 165 mg/dl Calcium Level 9.0 mg/dl Total Bilirubin 2.8 mg/dl Direct Bilirubin 0.7 mg/dl Aspartate Amino Transf (AST/SGOT) 30 U/L Alanine Aminotransferase (ALT/SGPT) 57 U/L Alkaline Phosphatase 63 U/L Total Creatine Kinase 52 U/L Total Protein 7.5 gm/dl Albumin 3.2 gm/dl Procalcitonin 1.60 ng/ml Lyme Disease IgG Antibody NEG Lyme Disease IgM Antibody NEG Lactic Acid Level 1.4 mmol/L Urine Color ORANGE Urine Appearance CLEAR Urine pH 6.0 Urine Specific [place] 1.025 Urine Protein 2+ Urine Glucose (UA) NEG Urine Ketones NEG Urine Occult Blood NEG Urine Nitrite POS Urine Bilirubin 1+ Urine Urobilinogen NEG Urine Leukocyte Esterase TRACE Urine WBC (Auto) 1-5 /hpf Urine RBC (Auto) 0-4 /hpf Urine Hyaline Casts (Auto) 0 /lpf Urine Epithelial Cells (Auto) 0-5 /lpf Urine Bacteria (Auto) NEG Test 09/03/17 05:43 White Blood Count 11.60 K/uL Red Blood Count 4.47 M/uL Hemoglobin 13.3 g/dL Hematocrit 38.0 % Mean Corpuscular Volume 85.0 fL Mean Corpuscular Hemoglobin 29.8 pg Mean Corpuscular Hemoglobin Concent 35.0 g/dl RDW Standard Deviation 46.8 fL RDW Coefficient of Variation 15.1 % Platelet Count 130 K/uL Mean Platelet Volume 10.7 fL Sodium Level 134 mmol/L Potassium Level 3.5 mmol/L Chloride Level 102 mmol/L Carbon Dioxide Level 23 mmol/L Anion Gap 9.0 mmol/L Blood Urea Nitrogen 15 mg/dl Creatinine 1.16 mg/dl Est Creatinine Clear Calc Drug Dose 145.0 ml/min Estimated GFR () 96.0 Estimated GFR (Non- 82.9 BUN/Creatinine Ratio 12.6 Random Glucose 110 mg/dl Estimated Average Glucose 91 mg/dl Hemoglobin A1c 4.8 % Calcium Level 8.5 mg/dl Magnesium Level 1.7 mg/dl Assessment and Plan This is a 31 year old male with a PMH of morbid obesity, hypothyroidism, psoriasis, tobacco use disorder, obesity hypoventilation syndrome, gout, depression - presents with two days of fevers/chills Sepsis secondary to Cellulitis 09/03 appreciate ID input for now, will continue Daptomycin and Cefepime d/c Flagyl once C. diff comes back negative 09/02 R LE cellulitis Dopplers - negative for acute DVTs elevated procalcitonin, elevated WBC, +fevers meets sepsis criteria will do Vancomycin for now blood cultures pending IVFs added Thrombocytopenia likely from sepsis for now, giving Lovenox, will monitor platelets Hypothyroidism continue Synthroid Tobacco Use Disorder counseled on tobacco cessation refusing nicotine patch will think about ways to stop Depression continue Lexapro DVT ppx Lovenox; monitor platelets FULL CODE
[2017-09-03 14:28] VITALS: TEMP 38.6
[2017-09-03] MEDS: ACETAMINOPHEN 325 MG TAB PO PRN (14:30)
[2017-09-03 15:42] VITALS: BP 116/68; PULSE 102; TEMP 37.2; O2SAT 99
[2017-09-03 16:00] VITALS: O2SAT 95
[2017-09-03] MEDS: CALCIUM CARBONATE 500 MG CHEWABLE PO PRN (17:24)
[2017-09-03] MEDS: LACTOBACILLUS ACIDOPHILUS (FLORANEX) TAB PO SCH (17:24)
[2017-09-03] MEDS ORDERED: DiphenhydrAMINE INJ 25 MG in SYRINGE 0 ML IV ONE (20:30)
[2017-09-03] MEDS ORDERED: DiphenhydrAMINE HCL 50 MG/ML VIAL ONE (20:31)
[2017-09-03] MEDS ORDERED: DiphenhydrAMINE HCL 50 MG/ML VIAL IV ONE (20:45)
[2017-09-03] MEDS: DAPTOMYCIN IV SCH (20:55)
[2017-09-03 23:52] VITALS: BP 103/66; PULSE 115; TEMP 39.5; O2SAT 97
[2017-09-04] MEDS ORDERED: ACETAMINOPHEN IV 650 MG in EMPTY BAG 0 ML IV PRN
[2017-09-04] MEDS: PROCHLORPERAZINE INJ 5 MG in SYRINGE 4 ML IV PRN ×2 (00:17→09:11)
[2017-09-04] MEDS: CEFEPIME IV 2,000 MG in SYRINGE 7.5 ML IV SCH (02:22)
[2017-09-04 02:23] VITALS: TEMP 36.5
[2017-09-04] MEDS: SODIUM CHLORIDE 0.9% 1000ML 1,000 ML IV SCH ×2 (05:48→16:15)
[2017-09-04] MEDS: LEVOTHYROXINE 50 MCG TAB PO SCH (05:48)
[2017-09-04] MEDS ORDERED: NURSING VERBAL MED ORDER ONE (06:00)
[2017-09-04 07:10] VITALS: BP 103/64; PULSE 101; TEMP 37.8; O2SAT 99
[2017-09-04] MEDS: ESCITALOPRAM OXALATE 20 MG TAB PO SCH (08:18)
[2017-09-04] MEDS: LACTOBACILLUS ACIDOPHILUS (FLORANEX) TAB PO SCH ×3 (08:19→17:38)
--- NOTE | 2017-09-04 14:25 | Progress Note ---
Subjective Date of Service: Sep 04, 2017. Subjective fever noted overnight, cefepime stopped due to rash, also wound growing S. aureus, final pending. blood cultures remain negative. Problem List Medical Problems: (1) Cellulitis of right leg Status: Acute (2) Lymphangitis Status: Acute (3) Right shoulder injury Status: Acute (4) Work related injury Status: Acute Objective Vital Signs Date Time Temp Pulse Resp B/P (MAP) Pulse Ox O2 Delivery O2 Flow Rate FiO2 09/04/17 08:00 Room Air 09/04/17 07:10 37.8 101 20 103/64 (77) 99 Room Air 09/04/17 02:23 36.5 09/04/17 00:00 Room Air 09/03/17 23:52 39.5 115 20 103/66 (78) 97 Room Air 09/03/17 16:00 95 Room Air 09/03/17 15:42 37.2 102 20 116/68 (84) 99 Room Air 09/03/17 14:28 38.6 Assessment and Plan (1) Cellulitis Assessment & Plan: continue dapto for now, follow culture results. additional recs will depend on final sensitivities. will likely require prolonged course of abx.
[2017-09-04 15:13] VITALS: BP 94/58; PULSE 106; TEMP 36.3; O2SAT 98
[2017-09-04 15:40] VITALS: TEMP 37
[2017-09-04 16:00] VITALS: O2SAT 99
[2017-09-04] MEDS: CALCIUM CARBONATE 500 MG CHEWABLE PO PRN (17:39)
[2017-09-04] MEDS: DAPTOMYCIN IV SCH (20:44)
[2017-09-04] MEDS: ACETAMINOPHEN 325 MG TAB PO PRN (20:44)
[2017-09-04 23:05] VITALS: BP 121/69; PULSE 111; TEMP 38.2; O2SAT 97
[2017-09-05 00:30] VITALS: TEMP 36.9
--- NOTE | 2017-09-05 01:32 | Progress Note ---
Medicine Progress Note Date & Time of Visit: Sep 04, 2017 at ~ 11:00 . Subjective CC: Follow-up visit for cellulitis. HPI: Generally feeling better. No fever. Leg pain improved. ROS: General- no fever, no chills Resp- no cough; no shortness of breath Cardiac- no chest pain, no edema GI- + nausea, no vomiting, no diarrhea, no constipation - no dysuria, no difficulty voiding . Objective Last 8 Hrs Date Time Temp Pulse Resp B/P (MAP) Pulse Ox O2 Delivery O2 Flow Rate FiO2 09/04/17 23:05 38.2 111 20 121/69 (86) 97 Room Air Physical Exam: General- no distress Lungs- clear; no resp distress Cardiovascular- RRR, no murmur or gallop appreciated; neck veins difficulty to assess; 1+ pretibial edema Abdomen- + BS, soft, nontender Extremities- no cyanosis; no calf tenderness Neuro- alert, oriented Skin- erythema right left; diffuse mild erythema trunk / back . Assessment & Plan SEPSIS Met criteria for sepsis per 2001 definition and current CMS guidelines- fever, tachycardia, leukocytosis. WBC 12,520. Lactic acid 1.4. Procalcitonin 1.6. Hemodynamically stable. Blood cultures obtained. Placed on antibiotic therapy, initially with TMP/sulfa, cefazolin, and clindamycin. Antibiotic therapy subsequently changed to daptomycin and cefepime. Source = cellulitis as discussed below. CELLULITIS RIGHT LOWER EXTREMITY Blood cultures negative. Wound culture growing Staph aureus, sensitivity pending. Has rash that may be drug reaction. DC cefepime. Continue daptomycin. SUSPECTED SLEEP APNEA Sleep study anticipated in near future. HYPOTHYROIDISM Continue levothyroxine. VTE PROPHYLAXIS SQ enoxaparin. Ambulate. DISPOSITION Expected discharge to home. Follow-up with DANILO Pinto. . Current Inpatient Medications: Current Inpatient Medications Medications (Trade) Dose Ordered Sig/Blanca Route Start Time Stop Time Status Last Admin Dose Admin Sodium Chloride 1,000 ml @ 100 mls/hr Q10H IV 09/02/17 19:30 10/02/17 19:29 09/04/17 16:15 100 MLS/HR Acetaminophen (Tylenol Tab) 650 mg Q4H PRN PO 09/02/17 17:45 10/02/17 17:44 09/04/17 20:44 650 MG Escitalopram Oxalate (Lexapro Tab) 20 mg DAILY PO 09/03/17 08:00 10/03/17 08:59 09/04/17 08:18 20 MG Levothyroxine Sodium (Synthroid Tab) 50 mcg DAILYBB PO 09/03/17 06:30 10/03/17 06:59 09/04/17 05:48 50 MCG Miscellaneous Information (Order Awaiting Action) 1 ea QS N/A 09/03/17 00:00 10/03/17 00:00 Daptomycin 675 mg/ Syringe 13.5 ml @ 6.75 mls/ min Q24H IV 09/02/17 21:00 09/12/17 20:59 09/04/17 20:44 6.75 MLS/MIN Daptomycin (Consult) 1 ea UD PRN N/A 09/02/17 20:30 10/02/17 20:29 Tramadol HCl (Ultram Tab) not relieved ... Q6H PRN PO 09/03/17 01:15 10/03/17 01:14 Morphine Sulfate (MoRPHine SULFATE INJ) 4 mg Q6H PRN IV 09/03/17 01:15 09/17/17 01:14 Lactobacillus Acidophilus (Floranex Tab) 4 tab TIDM PO 09/03/17 17:00 10/03/17 16:59 09/04/17 17:38 4 TAB Calcium Carbonate (Tums Chew Tab) 500 mg BID PRN PO 09/03/17 15:30 10/03/17 15:29 09/04/17 17:39 500 MG Prochlorperazine Edisylate 5 mg/ Syringe 5 ml @ 5 mls/min Q6H PRN IV 09/04/17 00:00 10/04/17 00:00 09/04/17 09:11 5 MLS/MIN Acetaminophen 650 mg/Empty Bag 65 ml @ 260 mls/hr Q6H PRN IV 09/04/17 00:00 10/04/17 00:00 09/04/17 00:17 260 MLS/HR Diphenhydramine HCl (Benadryl Cap) 50 mg QID PO 09/05/17 08:00 10/05/17 07:59
[2017-09-05] MEDS: SODIUM CHLORIDE 0.9% 1000ML 1,000 ML IV SCH (02:20)
[2017-09-05] MEDS: LEVOTHYROXINE 50 MCG TAB PO SCH (05:59)
[2017-09-05 06:02] VITALS: TEMP 37.1
[2017-09-05] MEDS: ESCITALOPRAM OXALATE 20 MG TAB PO SCH (07:22)
[2017-09-05] MEDS: LACTOBACILLUS ACIDOPHILUS (FLORANEX) TAB PO SCH ×3 (07:22→17:10)
[2017-09-05] MEDS: ENOXAPARIN 40 MG/0.4 ML SYR SQ SCH (07:23)
[2017-09-05 07:27] VITALS: BP 113/71; PULSE 81; TEMP 36.9; O2SAT 98
[2017-09-05 07:36] LABS: HEMATOCRIT 32.4 % (42-52); HEMOGLOBIN 11.3 g/dL (14.0-18.0); MEAN CELL VOLUME 84.6 fL (80-100); MEAN CORPUSCULAR HEMOGLOBIN 29.5 pg (25-34); MEAN CORPUSCULAR HGB CONC 34.9 g/dl (32-36); MEAN PLATELET VOLUME 10.5 fL (7.4-10.4); PLATELET COUNT 175 K/uL (130-400); RED CELL DISTRIBUTION WIDTH CV 15.4 % (11.5-14.5); RED CELL DISTRIBUTION WIDTH SD 47.7 fL (36.4-46.3); WHITE BLOOD COUNT 13.74 K/uL (4.8-10.8)
[2017-09-05 07:49] LABS: INR 1.1 (0.9-1.1); PTT PATIENT 30.5 SECONDS (21.0-31.0)
[2017-09-05 08:04] LABS: CALCIUM 8.2 mg/dl (8.5-10.1); CREATININE 1.1 mg/dl (0.60-1.40); POTASSIUM 3.8 mmol/L (3.5-5.1)
--- NOTE | 2017-09-05 11:12 | Progress Note ---
Subjective Date of Service: Sep 05, 2017. Subjective Pt evaluation today including: conversation w/ patient, physical exam, chart review, lab review still with rash but states feeling better. only on dapto currently. slight fever overnight, none since midnight, pt asymptomatic. overall states he is feeling much better. states leg is stiff but believes this is due to inactivity. no fevers this am. no itching. blood cultures negative, wound culture with MSSA. All remaining ros reviewed and are negative. Problem List Medical Problems: (1) Cellulitis of right leg Status: Acute (2) Lymphangitis Status: Acute (3) Right shoulder injury Status: Acute (4) Work related injury Status: Acute Objective Vital Signs Date Time Temp Pulse Resp B/P (MAP) Pulse Ox O2 Delivery O2 Flow Rate FiO2 09/05/17 07:27 36.9 81 18 113/71 (85) 98 Room Air 09/05/17 07:20 Room Air 09/05/17 06:02 37.1 09/05/17 00:30 36.9 09/05/17 00:00 Room Air 09/04/17 23:05 38.2 111 20 121/69 (86) 97 Room Air 09/04/17 16:00 99 Room Air 09/04/17 15:40 37.0 09/04/17 15:13 36.3 106 20 94/58 (70) 98 Room Air Physical Exam General Appearance: WD/WN, no apparent distress Eyes: normal inspection, EOMI Neck: supple Respiratory/Chest: lungs clear, normal breath sounds, no respiratory distress Cardiovascular: regular rate, rhythm, no edema Abdomen: soft Extremities: non-tender, no pedal edema Neurologic/Psychiatric: alert, oriented x 3 Skin: + rash Comments: right leg significantly improved, no erythema. chronic wound on ankle unchanged , no drainage. Laboratory Results Item Value Date Time Gram Stain - Final Resulted 09/03/17 0400 Drainage - Surface Leg Right Lower Urine Culture - Preliminary Resulted 09/02/17 1945 Urine , Clean Catch NO GROWTH - LESS THAN 1,000 COLONIES/... Blood Culture - Preliminary Resulted 09/02/17 1438 Blood NO GROWTH TO DATE. Blood Culture - Preliminary Resulted 09/02/17 1410 Blood NO GROWTH TO DATE. Last 24 Hours Test 09/05/17 07:19 White Blood Count 13.74 K/uL Red Blood Count 3.83 M/uL Hemoglobin 11.3 g/dL Hematocrit 32.4 % Mean Corpuscular Volume 84.6 fL Mean Corpuscular Hemoglobin 29.5 pg Mean Corpuscular Hemoglobin Concent 34.9 g/dl RDW Standard Deviation 47.7 fL RDW Coefficient of Variation 15.4 % Platelet Count 175 K/uL Mean Platelet Volume 10.5 fL Prothrombin Time 11.4 SECONDS Prothromb Time International Ratio 1.1 Activated Partial Thromboplast Time 30.5 SECONDS Partial Thromboplastin Ratio 1.2 Sodium Level 136 mmol/L Potassium Level 3.8 mmol/L Chloride Level 106 mmol/L Carbon Dioxide Level 23 mmol/L Anion Gap 7.0 mmol/L Blood Urea Nitrogen 12 mg/dl Creatinine 1.10 mg/dl Est Creatinine Clear Calc Drug Dose 152.9 ml/min Estimated GFR () 102.4 Estimated GFR (Non- 88.4 BUN/Creatinine Ratio 11.1 Random Glucose 140 mg/dl Calcium Level 8.2 mg/dl Magnesium Level 1.9 mg/dl Assessment and Plan (1) Cellulitis Assessment & Plan: will maintain on dapto for now. suspect low grade fever last pm due to abx reaction, cellulitis resolving. discussed po vs IV abx at d/c, pt would prefer po - would suggest doxy 100mg po bid with food, especially with pcn allergy and likely reaction to cefepime, would avoid keflex. would give additional 14 days ok for /c when otherwise stable.
[2017-09-05 15:40] VITALS: BP 114/67; PULSE 88; TEMP 36.9; O2SAT 100
[2017-09-05] MEDS: DAPTOMYCIN IV SCH (20:42)
--- NOTE | 2017-09-05 20:50 | Progress Note ---
Medicine Progress Note Date & Time of Visit: Sep 05, 2017 at 09:40 . Subjective CC: Follow-up visit for cellulitis. HPI: Febrile last night. RLE pain, swelling, erythema improved. Persist rash on trunk. ROS: General- as noted above in HPI Resp- no cough; no shortness of breath Cardiac- no chest pain, no edema GI- nausea improved; 1 loose stool this morning - no dysuria, no difficulty voiding . Objective Last 8 Hrs Date Time Temp Pulse Resp B/P (MAP) Pulse Ox O2 Delivery O2 Flow Rate FiO2 09/05/17 16:33 Room Air 09/05/17 15:40 36.9 88 18 114/67 (83) 100 Room Air Physical Exam: General- no distress Lungs- clear; no respiratory distress Cardiovascular- RRR, no murmur or gallop appreciated; neck veins difficulty to assess; 1+ pretibial edema Abdomen- + BS, soft, nontender Extremities- no cyanosis; no calf tenderness Neuro- alert, oriented Skin- erythema right leg improved; diffuse moderate erythema trunk / back . Laboratory Results: Last 24 Hours Test 09/05/17 07:19 White Blood Count 13.74 K/uL Red Blood Count 3.83 M/uL Hemoglobin 11.3 g/dL Hematocrit 32.4 % Mean Corpuscular Volume 84.6 fL Mean Corpuscular Hemoglobin 29.5 pg Mean Corpuscular Hemoglobin Concent 34.9 g/dl RDW Standard Deviation 47.7 fL RDW Coefficient of Variation 15.4 % Platelet Count 175 K/uL Mean Platelet Volume 10.5 fL Prothrombin Time 11.4 SECONDS Prothromb Time International Ratio 1.1 Activated Partial Thromboplast Time 30.5 SECONDS Partial Thromboplastin Ratio 1.2 Sodium Level 136 mmol/L Potassium Level 3.8 mmol/L Chloride Level 106 mmol/L Carbon Dioxide Level 23 mmol/L Anion Gap 7.0 mmol/L Blood Urea Nitrogen 12 mg/dl Creatinine 1.10 mg/dl Est Creatinine Clear Calc Drug Dose 152.9 ml/min Estimated GFR () 102.4 Estimated GFR (Non- 88.4 BUN/Creatinine Ratio 11.1 Random Glucose 140 mg/dl Calcium Level 8.2 mg/dl Magnesium Level 1.9 mg/dl Assessment & Plan SEPSIS Met criteria for sepsis per 2001 definition and current CMS guidelines- fever, tachycardia, leukocytosis. WBC 12,520. Lactic acid 1.4. Procalcitonin 1.6. Hemodynamically stable. Blood cultures obtained. Placed on antibiotic therapy, initially with TMP/sulfa, cefazolin, and clindamycin. Antibiotic therapy subsequently changed to daptomycin and cefepime. Source = cellulitis as discussed below. CELLULITIS RIGHT LOWER EXTREMITY Blood cultures negative. Wound culture growing Staph aureus, sensitivity pending. Has rash that may be drug reaction. Stopped cefepime. Continue daptomycin. Anticipated transition to oral therapy with doxycycline when better & afebrile. SUSPECTED SLEEP APNEA Sleep study anticipated in near future. HYPOTHYROIDISM Continue levothyroxine. VTE PROPHYLAXIS SQ enoxaparin. Ambulate. DISPOSITION Expected discharge to home. Follow-up with DANILO Pinto. . Current Inpatient Medications: Current Inpatient Medications Medications (Trade) Dose Ordered Sig/Blanca Route Start Time Stop Time Status Last Admin Dose Admin Acetaminophen (Tylenol Tab) 650 mg Q4H PRN PO 09/02/17 17:45 10/02/17 17:44 09/04/17 20:44 650 MG Escitalopram Oxalate (Lexapro Tab) 20 mg DAILY PO 09/03/17 08:00 10/03/17 08:59 09/05/17 07:22 20 MG Levothyroxine Sodium (Synthroid Tab) 50 mcg DAILYBB PO 09/03/17 06:30 10/03/17 06:59 09/05/17 05:59 50 MCG Miscellaneous Information (Order Awaiting Action) 1 ea QS N/A 09/03/17 00:00 10/03/17 00:00 Daptomycin 675 mg/ Syringe 13.5 ml @ 6.75 mls/ min Q24H IV 09/02/17 21:00 09/12/17 20:59 09/05/17 20:42 6.75 MLS/MIN Daptomycin (Consult) 1 ea UD PRN N/A 09/02/17 20:30 10/02/17 20:29 Tramadol HCl (Ultram Tab) not relieved ... Q6H PRN PO 09/03/17 01:15 10/03/17 01:14 Morphine Sulfate (MoRPHine SULFATE INJ) 4 mg Q6H PRN IV 09/03/17 01:15 09/17/17 01:14 Lactobacillus Acidophilus (Floranex Tab) 4 tab TIDM PO 09/03/17 17:00 10/03/17 16:59 09/05/17 17:10 4 TAB Calcium Carbonate (Tums Chew Tab) 500 mg BID PRN PO 09/03/17 15:30 10/03/17 15:29 09/04/17 17:39 500 MG Prochlorperazine Edisylate 5 mg/ Syringe 5 ml @ 5 mls/min Q6H PRN IV 09/04/17 00:00 10/04/17 00:00 09/04/17 09:11 5 MLS/MIN Acetaminophen 650 mg/Empty Bag 65 ml @ 260 mls/hr Q6H PRN IV 09/04/17 00:00 10/04/17 00:00 09/04/17 00:17 260 MLS/HR Diphenhydramine HCl (Benadryl Cap) 50 mg QID PO 09/05/17 08:00 10/05/17 07:59 09/05/17 20:42 50 MG Enoxaparin Sodium (Lovenox Inj) 40 mg QAM SQ 09/05/17 08:00 10/05/17 07:59 09/05/17 07:23 40 MG
[2017-09-06 00:40] VITALS: BP 130/71; PULSE 95; TEMP 37; O2SAT 96
[2017-09-06] MEDS: LEVOTHYROXINE 50 MCG TAB PO SCH (06:11)
[2017-09-06 07:53] VITALS: BP 116/65; PULSE 82; TEMP 36.4; O2SAT 100
[2017-09-06] MEDS: ENOXAPARIN 40 MG/0.4 ML SYR SQ SCH (08:00)
[2017-09-06] MEDS ORDERED: ALLOPURINOL 100 MG TAB PO SCH (08:00)
[2017-09-06 08:06] LABS: BASO % 0.3 %; BASO ABS # 0.03 K/uL (0-0.2); EOS % 4.2 %; EOS ABS # 0.45 K/uL (0-0.5); HEMATOCRIT 35.1 % (42-52); HEMOGLOBIN 12.1 g/dL (14.0-18.0); LYMPH % 10.1 %; LYMPH ABS # 1.07 K/uL (1.2-3.4); MEAN CELL VOLUME 85.4 fL (80-100); MEAN CORPUSCULAR HEMOGLOBIN 29.4 pg (25-34); MEAN CORPUSCULAR HGB CONC 34.5 g/dl (32-36); MEAN PLATELET VOLUME 10.5 fL (7.4-10.4); MONO ABS # 0.64 K/uL (0.11-0.59); NEUT % 77.5 %; NEUT ABS # 8.23 K/uL (1.4-6.5); NUCLEATED RED BLOOD CELL ABS 0.04 K/uL (0-0); PLATELET COUNT 191 K/uL (130-400); RED CELL DISTRIBUTION WIDTH CV 15.2 % (11.5-14.5); RED CELL DISTRIBUTION WIDTH SD 47.3 fL (36.4-46.3); WHITE BLOOD COUNT 10.62 K/uL (4.8-10.8)
[2017-09-06] MEDS: LACTOBACILLUS ACIDOPHILUS (FLORANEX) TAB PO SCH ×3 (08:14→17:48)
[2017-09-06] MEDS: ESCITALOPRAM OXALATE 20 MG TAB PO SCH (08:14)
[2017-09-06 16:28] VITALS: BP 113/64; PULSE 83; TEMP 36.8; O2SAT 100
--- NOTE | 2017-09-06 17:02 | Progress Note ---
Medicine Progress Note Date & Time of Visit: Sep 06, 2017 at 17:02 . Subjective Right leg pain improved. Generalized rash about the same. No nausea, vomiting, diarrhea. Last fever 2 nights ago. Would like to be discharged. . Objective Last 8 Hrs Date Time Temp Pulse Resp B/P (MAP) Pulse Ox O2 Delivery O2 Flow Rate FiO2 09/06/17 16:28 36.8 83 18 113/64 (80) 100 Room Air Physical Exam: General- no distress Lungs- clear; no respiratory distress Cardiovascular- RRR, no murmur or gallop appreciated; neck veins difficulty to assess; 1+ pretibial edema Abdomen- + BS, soft, nontender Extremities- no cyanosis; no calf tenderness Neuro- alert, oriented Skin- erythema right leg improved; diffuse moderate erythema trunk / back . Laboratory Results: Last 24 Hours Test 09/06/17 07:39 White Blood Count 10.62 K/uL Red Blood Count 4.11 M/uL Hemoglobin 12.1 g/dL Hematocrit 35.1 % Mean Corpuscular Volume 85.4 fL Mean Corpuscular Hemoglobin 29.4 pg Mean Corpuscular Hemoglobin Concent 34.5 g/dl Platelet Count 191 K/uL Mean Platelet Volume 10.5 fL Neutrophils (%) (Auto) 77.5 % Lymphocytes (%) (Auto) 10.1 % Monocytes (%) (Auto) 6.0 % Eosinophils (%) (Auto) 4.2 % Basophils (%) (Auto) 0.3 % Neutrophils # (Auto) 8.23 K/uL Lymphocytes # (Auto) 1.07 K/uL Monocytes # (Auto) 0.64 K/uL Eosinophils # (Auto) 0.45 K/uL Basophils # (Auto) 0.03 K/uL RDW Standard Deviation 47.3 fL RDW Coefficient of Variation 15.2 % Immature Granulocyte % (Auto) 1.9 % Immature Granulocyte # (Auto) 0.20 K/uL Nucleated RBC Absolute Count (auto) 0.04 K/uL Nucleated Red Blood Cells % 0.4 % Assessment & Plan SEPSIS Met criteria for sepsis per 2001 definition and current CMS guidelines- fever, tachycardia, leukocytosis. WBC 12,520. Lactic acid 1.4. Procalcitonin 1.6. Hemodynamically stable. Blood cultures obtained. Placed on antibiotic therapy, initially with TMP/sulfa, cefazolin, and clindamycin. Antibiotic therapy subsequently changed to daptomycin and cefepime. Source = cellulitis as discussed below. CELLULITIS RIGHT LOWER EXTREMITY Blood cultures negative. Wound culture growing Staph aureus, sensitivity pending. Has rash that may be drug reaction. Stopped cefepime. Continued daptomycin. Transition to oral therapy with doxycycline x 2 wks. SUSPECTED SLEEP APNEA Patient has outpt f/u with Sleep Medicine. HYPOTHYROIDISM Continue levothyroxine. VTE PROPHYLAXIS SQ enoxaparin. Ambulate. DISPOSITION Discharge to home. Follow-up with DANILO Pinto. . Current Inpatient Medications: Current Inpatient Medications Medications (Trade) Dose Ordered Sig/Blanca Route Start Time Stop Time Status Last Admin Dose Admin Acetaminophen (Tylenol Tab) 650 mg Q4H PRN PO 09/02/17 17:45 10/02/17 17:44 09/04/17 20:44 650 MG Escitalopram Oxalate (Lexapro Tab) 20 mg DAILY PO 09/03/17 08:00 10/03/17 08:59 09/06/17 08:14 20 MG Levothyroxine Sodium (Synthroid Tab) 50 mcg DAILYBB PO 09/03/17 06:30 10/03/17 06:59 09/06/17 06:11 50 MCG Daptomycin 675 mg/ Syringe 13.5 ml @ 6.75 mls/ min Q24H IV 09/02/17 21:00 09/12/17 20:59 09/05/17 20:42 6.75 MLS/MIN Daptomycin (Consult) 1 ea UD PRN N/A 09/02/17 20:30 10/02/17 20:29 Tramadol HCl (Ultram Tab) not relieved ... Q6H PRN PO 09/03/17 01:15 10/03/17 01:14 Morphine Sulfate (MoRPHine SULFATE INJ) 4 mg Q6H PRN IV 09/03/17 01:15 09/17/17 01:14 Lactobacillus Acidophilus (Floranex Tab) 4 tab TIDM PO 09/03/17 17:00 10/03/17 16:59 09/06/17 08:14 4 TAB Calcium Carbonate (Tums Chew Tab) 500 mg BID PRN PO 09/03/17 15:30 10/03/17 15:29 09/04/17 17:39 500 MG Prochlorperazine Edisylate 5 mg/ Syringe 5 ml @ 5 mls/min Q6H PRN IV 09/04/17 00:00 10/04/17 00:00 09/04/17 09:11 5 MLS/MIN Acetaminophen 650 mg/Empty Bag 65 ml @ 260 mls/hr Q6H PRN IV 09/04/17 00:00 10/04/17 00:00 09/04/17 00:17 260 MLS/HR Diphenhydramine HCl (Benadryl Cap) 50 mg QID PO 09/05/17 08:00 10/05/17 07:59 09/06/17 12:32 50 MG Enoxaparin Sodium (Lovenox Inj) 40 mg QAM SQ 09/05/17 08:00 10/05/17 07:59 09/05/17 07:23 40 MG Allopurinol (Zyloprim Tab) 200 mg DAILY PO 09/06/17 08:00 10/06/17 07:59 09/06/17 08:13 200 MG
[2017-09-06] MEDS ORDERED: ALL100 PO (17:04)
[2017-09-06] MEDS ORDERED: DOXY-300 PO (17:07)
[2017-09-06] MEDS ORDERED: DIPH25CA5 PO (17:08)
--- NOTE | 2017-09-06 17:15 | Discharge Instructions ---
Discharge Instructions Date of Service Sep 06, 2017. Admission Reason for Admission: leg pain . Discharge Discharge Diagnosis / Problem: cellulitis (infection of skin) right leg Discharge Goals Goal(s): Decrease discomfort, Improve disease control Activity Recommendations Activity Limitations: resume your previous activity . Instructions / Follow-Up Instructions / Follow-Up APPOINTMENTS: FAMILY MEDICINE 09/11/2017 4:10 PM DANILO Coles SLEEP MEDICINE 09/11/2017 11:30 AM Sydnee Howell MD OTHER INSTRUCTIONS: Take doxycycline 100 mg twice a day for cellulitis of right leg. Start Sunday evening 09/07/17. Take diphenhydramine (Benadryl) 50 mg (2 pills) every 6 hours as needed for rash. Rash was probably due to cefepime (Maxipime). You should avoid it in the future as well as other medications in the cephalosporin family. Seek medical attention if you have: * temperature above 101 * chest pain or trouble breathing * abdominal pain, nausea, vomiting * diarrhea, dark stools or bloody stools * any unanswered questions or concerns Call 911 if symptoms are severe. Call if you have any questions or problems. My cell # is [phone]. You can also reach a [facility] hospitalist on duty at [facility] 24 hours a day by calling [phone]. Please take good care of yourself. Thee Allen . Current Hospital Diet Patient's current hospital diet: Regular Diet Discharge Diet Recommended Diet: Regular Diet Pending Studies Studies pending at discharge: no Laboratory Results Hemoglobin A1c Test 09/03/17 05:43 Range/Units Estimated Average Glucose 91 mg/dl Hemoglobin A1c 4.8 4.5-5.6 % Work Instructions Return To Work: after follow-up Additional Instructions: Lawson Aguayo has been absent from work since 09/02/17 due to illness. Return to work date to be determined after re-evaluation next week. Medical Emergencies . Who to Call and When: Medical Emergencies: If at any time you feel your situation is an emergency, please call 911 immediately. . Non-Emergent Contact Non-Emergency issues call your: Primary Care Provider, Hospital Doctor . . "Provider Documentation" section prepared by Thee Allen. . VTE Core Measure Inpt VTE Proph given/why not?: Enoxaparin (Lovenox)SQ
[2017-09-06] MEDS ORDERED: DAPTOMYCIN IV ONE (18:00)
[2017-09-06 18:19] VITALS: BP 113/64; PULSE 83; TEMP 36.8; O2SAT 100
--- NOTE | 2017-09-07 21:55 | Discharge Summary ---
Discharge Summary Date of Service Sep 07, 2017. Discharge Summary Admission Date: Sep 02, 2017 at 17:45 . Discharge Date: Sep 06, 2017 Discharge Disposition: Home Principal Diagnosis: sepsis due to cellulitis right lower extremity . Secondary Diagnoses/Problems: Other acute problems: rash, suspected drug reaction to cefepime Chronic and Resolved Medical Problems: (1) Depression Status: Chronic (2) Gout Status: Chronic (3) Hypothyroidism Status: Chronic (4) Obesity, morbid, BMI 50 or higher Status: Chronic (5) Psoriasis Status: Chronic . Consultations: ID with Dr. Pretty . Medication Reconciliation New Medications: Diphenhydramine Hcl (Benadryl) 25 Mg Cap 50 MG PO Q6 PRN for rash, #30 CAP No prescription necessary. Take 2 pills every 6 hours as needed for rash. Doxycycline (Monohydrate) (Doxycycline) 100 Mg Cap 100 MG PO BID, #28 CAP Continued Medications: Allopurinol (Allopurinol) 100 Mg Tab 200 MG PO DAILY Escitalopram Oxalate (Lexapro) 20 Mg Tab 20 MG PO DAILY, TAB Levothyroxine Sodium (Levothyroxine Sodium) 50 Mcg Tab 50 MCG PO DAILY Take 30 minutes before breakfast. Admission Information HPI (per Admitting provider): This is a 31 year old male with a PMH of morbid obesity, hypothyroidism, psoriasis, tobacco use disorder, obesity hypoventilation syndrome, gout, depression - presents with two days of fevers/chills - he tried tylenol at home but this did not work. States that his family was sick with the "stomach flu" and had nausea/vomiting. His last vomiting episode was on Sunday, 08/31. He states that his R LE became red, tender, swollen. He went to urgent care today, and he was sent to the [facility] ER to r/o DVT. Upon arrival, dopplers did not show any DVTs, but patient had a fever, and elevated white count. He was ill- appearing and decision was made to admit. Currently, he denies chest pain/ shortness of breath. He has +fevers, +chills. Occasional +nausea/vomiting. + lower extremity pain, warmth. . Physical Exam (per Admitting): General Appearance: no apparent distress, + obese Head: normocephalic, atraumatic Eyes: normal inspection ENT: hearing grossly normal Neck: supple Respiratory/Chest: no respiratory distress, no accessory muscle use, + wheezing (mild end expiratory wheezing) Cardiovascular: regular rate, rhythm, no JVD, no murmur, normal peripheral pulses Abdomen/GI: normal bowel sounds, non tender, soft Extremities/Musculoskelatal: + pertinent finding (+erythematous, warm to touch R LE (lower anterior groves), tender to palpation) Neurologic/Psych: mobile unit assistant II-XII nml as tested, no motor/sensory deficits, alert , normal mood/affect, oriented x 3 Skin: + rash, + pertinent finding (erythema of R LE) Lymphatic: no adenopathy Hospital Course SEPSIS Presented to ED with fever and RLE erythema and pain. Met criteria for sepsis per 2001 definition and current CMS guidelines- fever, tachycardia, leukocytosis. WBC 12,520. Lactic acid 1.4. Procalcitonin 1.6. Hemodynamically stable. Blood cultures obtained. Placed on antibiotic therapy, initially with TMP/sulfa, cefazolin, and clindamycin. Antibiotic therapy subsequently changed to daptomycin and cefepime. Source = cellulitis as discussed below. CELLULITIS RIGHT LOWER EXTREMITY Blood cultures negative. Wound culture growing Staph aureus, sensitivity pending. Has rash that may be drug reaction. Stopped cefepime. Continued daptomycin. Transition to oral therapy with doxycycline x 2 wks. SUSPECTED SLEEP APNEA Patient has outpt f/u with Sleep Medicine. HYPOTHYROIDISM Continue levothyroxine. VTE PROPHYLAXIS SQ enoxaparin. Ambulate. DISPOSITION Discharge to home. Follow-up with DANILO Pinto. . Total time spent on discharge = 35 min. This includes examination of the patient, discharge planning, medication reconciliation, and communication with other providers. . Discharge Instructions Date of Service Sep 06, 2017. Admission Reason for Admission: leg pain . Discharge Discharge Diagnosis / Problem: cellulitis (infection of skin) right leg Discharge Goals Goal(s): Decrease discomfort, Improve disease control Activity Recommendations Activity Limitations: resume your previous activity . Instructions / Follow-Up Instructions / Follow-Up APPOINTMENTS: FAMILY MEDICINE 09/11/2017 4:10 PM DANILO Coles SLEEP MEDICINE 09/11/2017 11:30 AM Sydnee Howell MD OTHER INSTRUCTIONS: Take doxycycline 100 mg twice a day for cellulitis of right leg. Start Sunday evening 09/07/17. Take diphenhydramine (Benadryl) 50 mg (2 pills) every 6 hours as needed for rash. Rash was probably due to cefepime (Maxipime). You should avoid it in the future as well as other medications in the cephalosporin family. Seek medical attention if you have: * temperature above 101 * chest pain or trouble breathing * abdominal pain, nausea, vomiting * diarrhea, dark stools or bloody stools * any unanswered questions or concerns Call 911 if symptoms are severe. Call if you have any questions or problems. My cell # is [phone]. You can also reach a [facility] hospitalist on duty at [facility] 24 hours a day by calling [phone]. Please take good care of yourself. Thee Allen . Current Hospital Diet Patient's current hospital diet: Regular Diet Discharge Diet Recommended Diet: Regular Diet Pending Studies Studies pending at discharge: no Laboratory Results Hemoglobin A1c Test 09/03/17 05:43 Range/Units Estimated Average Glucose 91 mg/dl Hemoglobin A1c 4.8 4.5-5.6 % Work Instructions Return To Work: after follow-up Additional Instructions: Lawson Aguayo has been absent from work since 09/02/17 due to illness. Return to work date to be determined after re-evaluation next week. Medical Emergencies . Who to Call and When: Medical Emergencies: If at any time you feel your situation is an emergency, please call 911 immediately. . Non-Emergent Contact Non-Emergency issues call your: Primary Care Provider, Hospital Doctor . . "Provider Documentation" section prepared by Thee Allen. . VTE Core Measure Inpt VTE Proph given/why not?: Enoxaparin (Lovenox)SQ .
== END 2017-09-06 19:15 | disposition home or self-care (01) | DRG 872 ==
LOC: C.EDB 13:26 → C.MS4W 17:45 → ENRESERV 18:07
PROVIDERS: ADMIT Family Medicine; ATTEND Hospitalist
DX: A41.9 Sepsis, unspecified organism (principal); L03.116 Cellulitis of left lower limb; E66.2 Morbid (severe) obesity with alveolar hypoventilation; Z68.43 Body mass index [BMI] 50.0-59.9, adult; Z83.3 Family history of diabetes mellitus; F17.210 Nicotine dependence, cigarettes, uncomplicated; L40.9 Psoriasis, unspecified; M1A.9XX0 Chronic gout, unspecified, without tophus (tophi); Z88.0 Allergy status to penicillin; E03.9 Hypothyroidism, unspecified; F32.9 Major depressive disorder, single episode, unspecified; S49.91XA Unspecified injury of right shoulder and upper arm, initial encounter; X58.XXXA Exposure to other specified factors, initial encounter; Y92.199 Unspecified place in other specified residential institution as the place of occurrence of the external cause

== ENCOUNTER 2017-09-19 17:35 | Observation (INO) | payer BC ==
[~2017-09-19] VITALS: Ht 180.3 cm; Wt 175.9 kg
[~2017-09-19 17:35] MED LIST changes: +ALL100 PO; +DIPH25CA5 PO; +DOXY-300 PO; -ESCI10TA17 PO; +ESCI1TAB10 PO; +LEVO50TA6 PO; -TIZA4CAP PO
[2017-09-19] MEDS ORDERED: ESCI1TAB10 PO (19:01)
[2017-09-19] MEDS ORDERED: DOXY-300 PO (19:01)
[2017-09-19] MEDS ORDERED: DIPH25CA5 PO (19:01)
[2017-09-19] MEDS ORDERED: FURO-85 PO (19:01)
[2017-09-19] MEDS ORDERED: IBUP-103 PO (19:01)
--- NOTE | 2017-09-19 19:13 | DIAGNOSTIC IMAGING REPORT ---
SINGLE VIEW CHEST CLINICAL HISTORY: Dyspnea. Wheezing. FINDINGS: An AP, portable, upright chest radiograph is compared to study dated 09/02/2017. The examination is degraded by portable technique and patient rotation. The heart is top normal for projection. There is diffuse coarsening of the interstitium. No lobar consolidation or large pleural effusion is identified. No pneumothorax is seen. The bony thorax is grossly intact. IMPRESSION: There is diffuse coarsening of the interstitial. Correlate clinically for evidence of an infectious/inflammatory pneumonitis or less likely a component of pulmonary edema. Electronically signed by: Juan R Penaloza M.D. 09/19/2017 7:12 PM Dictated Date/Time: 09/19/2017 7:11 PM
[2017-09-19 19:24] LABS: ALT/SGPT 56 U/L (12-78); AST/SGOT 33 U/L (15-37); BLOOD UREA NITROGEN 53 mg/dl (7-18); CARBON DIOXIDE 24 mmol/L (21-32); CREATININE 1.76 mg/dl (0.60-1.40); GLUCOSE 72 mg/dl (70-99); POTASSIUM 5.3 mmol/L (3.5-5.1); SODIUM 141 mmol/L (136-145)
[2017-09-19 19:29] LABS: ALKALINE PHOSPHATASE 83 U/L (45-117); TOTAL PROTEIN 7.5 gm/dl (6.4-8.2)
[2017-09-19 19:59] LABS: MEAN CORPUSCULAR HEMOGLOBIN 29.3 pg (25-34); MEAN CORPUSCULAR HGB CONC 33.3 g/dl (32-36); MEAN PLATELET VOLUME 10.6 fL (7.4-10.4); PLATELET COUNT 180 K/uL (130-400); RED CELL DISTRIBUTION WIDTH CV 14.8 % (11.5-14.5); RED CELL DISTRIBUTION WIDTH SD 47.7 fL (36.4-46.3); WHITE BLOOD COUNT 5.14 K/uL (4.8-10.8)
--- NOTE | 2017-09-19 20:15 | EMERGENCY ROOM VISIT NOTE ---
History First contact with patient: 18:23 (Pancho Hancock M.D.) First contact with patient: 18:23 (Ravi Mclean M.D.) Chief Complaint: RESPIRATORY PROBLEMS Stated Complaint: SOB, STOMACH PAIN, B/L FEET/LEG SWELLING Nursing Triage Summary: Patient's reports " He was admitted and discharged for cellulitis on his right leg. Ever since he left the hospital, he has had major swelling on his leg and feet. Now, he has major shortness of breath and stomach pain." Denies fever. Negative DVT while in the hospital. (Pancho Hancock M.D.) History of Present Illness 31M with a recent admission for cellulitis (DC on Sep 06 on Doxycycline) present to the ER with dyspnea while walking. Patient has been almost completely bedridden since his DC on September 06 from [facility]. He started getting up and walking the past 3 days and the pt and his stated that he was much more dyspneic than usual and that's why they came to the ER. Patient states that his cellulitis has improved since DC but he has had a lot more hand and feet swelling. He has a few more days of Doxycycline. According to his he gained 10lbs in the past week. He was seen by his PCP and started on 20mg PO Lasix. He has no known history of heart failure or cardiac issues. Pt feels that his LE swelling has improved since starting the Lasix. The patient complaints that he is constantly thirsty. PMHx: Gout on Allopurinol, Hypothyroid on Synthroid Depression on Lexapro. SHX: Lives with , has two children, was scheduled to go back to work tomorrow. 10 pack year smoking history, currently smokes half a pack per day. ROS: +SOB, no cough, no fevers, pt has been feeling dizzy, +stiffness in legs. Pt has never used an inhaler. Denies fevers, denies dysuria, denies diarrhea. No throat pain. No ear pain. Denies hematochezia, BRBPR, according to pt reports a 4 week history of heartburn. Source of History: patient, spouse/significant other Symptom Intensity: moderate Timing: worsening Modifying Factors (Worsening): movement Modifying Factors (Relieving): rest Associated Symptoms: + SOB, + fatigue (Pancho Hancock M.D.) Review of Systems See HPI for pertinent positives and negatives. A total of ten systems were reviewed and were otherwise negative. Constitutional: No fever, No chills ENT: No dental problems Respiratory: + shortness of breath, + dyspnea on exertion, No hemoptysis Cardiovascular: No chest pain Abdomen: No pain, No nausea, No diarrhea, No constipation Genitourinary - Male: No hematuria, No dysuria Neurologic: No memory loss Psychiatric: No depression symptoms, No anxiety Endocrine: + fatigue Integumentary: + itch (Pancho Hancock M.D.) Past Medical/Surgical History Medical Problems: (1) Cellulitis (2) Depression (3) Gout (4) Hypothyroidism (5) Obesity, morbid, BMI 50 or higher (6) Psoriasis (7) Pulmonary edema (8) SOB (shortness of breath) Surgical Problems: (1) No history of previous surgery (Ravi Mclean M.D.) Family History Cancer Diabetes mellitus Heart disease Hypertension Kidney disease Kidney stones Seizures (Pancho Hancock M.D.) Cancer Diabetes mellitus Heart disease Hypertension Kidney disease Kidney stones Seizures (Ravi Mclean M.D.) Social History Smoking Status: Current Every Day Smoker Alcohol Use: occasionally Drug Use: none Marital Status: single Occupation Status: employed (Pancho Hancock M.D.) Current/Historical Medications Scheduled Allopurinol (Allopurinol), 200 MG PO DAILY Doxycycline (Monohydrate) (Doxycycline), 100 MG PO BID Escitalopram Oxalate (Lexapro), 20 MG PO DAILY Furosemide (Lasix), 20 MG PO DAILY Levothyroxine Sodium (Levothyroxine Sodium), 50 MCG PO DAILY Scheduled PRN Diphenhydramine Hcl (Benadryl), 50 MG PO Q6H PRN for Rash Ibuprofen Tab (Advil), 800 MG PO Q8 PRN for Pain or Fever Physical Exam Vital Signs Date Time Temp Pulse Resp B/P (MAP) Pulse Ox O2 Delivery O2 Flow Rate FiO2 09/19/17 23:19 68 09/19/17 21:46 59 18 162/87 100 Room Air 09/19/17 20:11 59 18 195/101 100 Room Air 1/24/18 19:15 58 09/19/17 18:49 100 Room Air 09/19/17 17:44 97 09/19/17 17:38 36.5 67 18 174/104 97 Room Air (Ravi Mclean M.D.) Physical Exam Gen: No acute distress. Morbidly obese male. HEENT: Head - normocephalic and atraumatic. Pupils are equal, round, and reactive to light. Extraocular eye muscles are intact and sclera are anicteric. Nose - moist nasal mucosa without discharge. Mouth - moist buccal mucosa. Oropharynx is nonerythematous and there is no tonsillar exudate or edema noted. Neck: Supple; no JVD, nuchal rigidity, cervical lymphadenopathy, or auscultated bruits. Heart: Regular rate and rhythm. There is a normal S1 and S2 with no murmurs, clicks, or gallops appreciated. Distant heart sounds due to body habitus. * Lungs: Rhonchorous lungs bilaterally with wheezing. Abdomen: Soft, completely nontender, nondistended, with good bowel sounds. There are no palpable pulsatile masses or hepatosplenomegaly. There is no guarding, rigidity, or rebound noted. * Extremities: Diffuse dry skin below the knees bilaterally, some sloughing of the skin, LE below the knees are edematous, non pitting, feel very tight bilaterally. No significant calf tenderness but the patient does note that he has a tender right ankle. Neuro:The patient is awake and alert, oriented to day, time, and place. Muscle strength is 5/5 in all 4 extremities. The patient has equal gathering machine feeder strength and equal pedal push and pull. There are no cerebellar signs. Sensation to light touch intact over the lower extremities. (Pancho Hancock M.D.) Medical Decision & Procedures ER Provider Diagnostic Interpretation: SINGLE VIEW CHEST CLINICAL HISTORY: Dyspnea. Wheezing. FINDINGS: An AP, portable, upright chest radiograph is compared to study dated 09/02/2017. The examination is degraded by portable technique and patient rotation. The heart is top normal for projection. There is diffuse coarsening of the interstitium. No lobar consolidation or large pleural effusion is identified. No pneumothorax is seen. The bony thorax is grossly intact. IMPRESSION: There is diffuse coarsening of the interstitial. Correlate clinically for evidence of an infectious/inflammatory pneumonitis or less likely a component of pulmonary edema. [~ rep ct add3]] CT ANGIOGRAM OF THE CHEST CLINICAL HISTORY: Dyspnea. COMPARISON STUDY: Chest x-ray dated 09/19/2017. TECHNIQUE: Following the IV administration of 93 cc of Optiray 320, CT angiogram of the chest was performed from the upper abdomen to the thoracic inlet utilizing the pulmonary embolus protocol. Images are reviewed in the axial, sagittal, and coronal planes. 3-D MIPS images are created and assessed. IV contrast was administered without complication. A dose lowering technique was utilized adhering to the principles of ALARA. CT DOSE: 993.11 mGy.cm FINDINGS: Thyroid: Imaged portions of the thyroid gland are normal in size and attenuation. Thoracic aorta: The thoracic aorta is normal in caliber and demonstrates standard 3-vessel arch anatomy. No dissection is seen. Pulmonary vasculature: The pulmonary trunk is normal in caliber. There are no filling defects identified in main, lobar, or segmental pulmonary branches to suggest pulmonary embolus. Heart: The heart is top normal in size and without pericardial effusion. Lungs and pleural spaces: There are small pleural effusions with associated atelectasis. There is mild intralobular septal thickening. Foci of patchy groundglass change are present throughout both lungs. The trachea and central airways are clear. Mediastinum: There are mildly enlarged based on lymph nodes a subcarinal node measures 1.9 cm short axis. A precarinal node measures 1.2 cm in short axis. Margaret: Mildly enlarged hilar nodes measure up to 1.3 cm in short axis. Axillae: There is no axillary lymphadenopathy. Upper abdomen: The liver appears enlarged and steatotic. The spleen is enlarged measuring 14.7 cm in length. A tiny hiatal hernia is identified. Skeletal structures: No lytic or blastic bony lesions are seen. IMPRESSION: 1. There is no evidence of pulmonary embolus in the main, lobar, or segmental pulmonary arteries. 2. The heart is top normal in size. 3. There is diffuse intralobular septal thickening with foci of patchy groundglass change seen throughout both lungs. The appearance is most suggestive of pulmonary edema. An infectious/inflammatory pneumonitis is considered less likely but is the top differential consideration. Clinical correlation will be essential. 4. Small pleural effusions. 5. Mildly enlarged mediastinal and hilar lymph nodes. 6. Hepatomegaly and hepatic steatosis. 7. Splenomegaly. ULTRASOUND BILATERAL LOWER EXTREMITY VENOUS CLINICAL HISTORY: Calf tenderness. COMPARISON STUDY: No priors. TECHNIQUE: Real-time, grayscale, and color Doppler sonography of the deep veins of the right and left lower extremity was performed from the inguinal crease to the calf. Compression and augmentation were utilized. FINDINGS: There is no sonographic evidence of deep venous thrombosis identified in the right or left lower extremity. The common femoral, superficial femoral, and popliteal veins are patent and normally compressible bilaterally. The greater saphenous vein and the profunda femoris vein at the junction with the common femoral vein are clear in both legs. The visualized calf veins are patent bilaterally. IMPRESSION: There is no sonographic evidence of deep venous thrombosis identified in the right or left lower extremity. (Pancho Hancock M.D.) Laboratory Results Test 09/19/17 18:35 09/19/17 19:43 Magnesium Level 2.1 mg/dl (1.8-2.4) Troponin I < 0.015 ng/ml (0-0.045) Pro-B-Type Natriuretic Peptide 1227 pg/ml (0-450) D-Dimer 2110 ug/L FEU (0-500) (Ravi Mclean M.D.) Medications Administered Medications (Trade) Dose Ordered Sig/Blanca Route Start Time Stop Time Status Last Admin Dose Admin Trimethoprim/ Sulfamethoxazole (Septra Ds 800/ 160MG Tab) 1 tab NOW ONCE PO 09/19/17 20:30 09/19/17 20:31 DC 09/19/17 20:23 1 TAB Albuterol/ Ipratropium (Duoneb) 3 ml ONE STAT INH 09/19/17 20:16 09/19/17 20:20 DC 09/19/17 20:23 3 ML Sodium Chloride 500 ml @ 250 mls/hr Q2H ONCE IV 09/19/17 20:45 09/19/17 22:44 DC 09/19/17 21:24 250 MLS/HR (Ravi Mclean M.D.) ECG Indication: SOB/dyspnea Rhythm: sinus bradycardia (rate of 58) Findings: no acute ischemic change, no ectopy, other (normal interval) Change: EKG interpreted by myself. (Pancho Hancock M.D.) Change: EKG interpreted by myself. (Ravi Mclean M.D.) Medical Decision The patient's care and disposition was discussed with Dr. Mclean, Attending ED Physician. This is a 31M with Dyspnea on exertion. Differential diagnosis include pneumonia, bronchitis, COPD/Asthma exacerbation, pneumothorax, pulmonary embolism, congestive heart failure, acute coronary syndrome. Triage Nursing notes were reviewed. ED Course included an extensive history and physical exam, labs, and X-ray. CBC - Hemoglobin is now 10, down from 12 in early August. (pt denies hematochezia, BRBPR, reports he has been having heartburn recently). CMP - elevated creatinine of 1.76, baseline around 1.2 (GFR > 50) UA has nitrites and LE - Given Bactrim EKG shows sinus susana, rate of 58, normal interval, normal axis, no ST changes or T wave inversion, no ectopy. D-Dimer - 2110 BNP - 1227 (no prior in chart) 7:00 - Pt was seen and examined at bedside and initial orders were placed. 7:30 - Case was discussed with Dr. Mclean and orders were updated. 8:20 - Bactrim and Duonebs were ordered for UTI and Wheezing respectively. 8:40 - Pt examined at Duoneb, markedly less wheezing in the right lung field, improved wheezing on the left, pt and informed of elevated D-Dimer and plan for a CT and Dopplers of the LE bilaterally. Pt will be given 8:45 - CT for PE and US orders placed. Will give 500ml normal saline bolus to protect the patient from further TORSTEN. 10:00 - CT and US results are reviewed. CT neg for PE but there is evidence of pulmonary edema. 10:15 - Discussed results with Dr. Mclean, will do an ambulatory trial and discuss results with patient when he returns from US. 10:20 - Discussed US and CT results with patient and family, pt desatted to 89% on a walk test, pt wanted time to think about admission. 10:55 - pt notified doctor that he will want to stay. 11:00 - Admission called. Patient has a UTI with a significant Amoxicillin allergy and we are treating the UTI Bactrim. Patient does have evidence of mild to moderate CHF. Patient's lab are also interesting for a 2 point hemoglobin drop. Pt also has a new mild TORSTEN. The pt was informed about the findings as listed above. All questions were answered. (Pancho Hancock M.D.) Consults Time Called: 11:00pm Consulting Physician: Stephen Daleyist - Dr. Herbert Returned Call: 11:05 (Pancho Hancock M.D.) Impression Primary Impression: CHF (congestive heart failure) Additional Impressions: TORSTEN (acute kidney injury) UTI (urinary tract infection) Encounter for smoking cessation counseling Departure Information Dispostion Admitted as an inpatient Condition FAIR Referrals No Doctor, Assigned (PCP) Patient Instructions My [facility] Resident Involvement: Resident Care Provided Care Provided: Adult Hospital Medicine (Pancho Hancock M.D.) Problem Qualifiers Primary Impression: CHF (congestive heart failure) Congestive heart failure type: systolic Congestive heart failure chronicity: acute Qualified Codes: I50.21 - Acute systolic (congestive) heart failure
[2017-09-19] MEDS ORDERED: ALBUT/IPRATROP 3MG/0.5MG NEB 3 ML VIAL INH STA (20:16)
[2017-09-19 20:25] LABS: BASO ABS # 0.05 K/uL (0-0.2); EOS % 2.7 %; EOS ABS # 0.14 K/uL (0-0.5); LYMPH % 31.5 %; LYMPH ABS # 1.62 K/uL (1.2-3.4); MONO % 6.2 %; MONO ABS # 0.32 K/uL (0.11-0.59); NEUT % 58.6 %; NEUT ABS # 3.01 K/uL (1.4-6.5)
[2017-09-19] MEDS ORDERED: SULFAMETHOXAZOLE/TRIMETHOPRIM DS 800/160MG TAB PO ONE (20:30)
[2017-09-19] MEDS ORDERED: SODIUM CHLORIDE 0.9% 500ML 500 ML IV ONE (20:45)
[2017-09-19] MEDS ORDERED: OPTIRAY 320 IV PRN (21:00)
--- NOTE | 2017-09-19 21:57 | DIAGNOSTIC IMAGING REPORT ---
CT ANGIOGRAM OF THE CHEST CLINICAL HISTORY: Dyspnea. COMPARISON STUDY: Chest x-ray dated 09/19/2017. TECHNIQUE: Following the IV administration of 93 cc of Optiray 320, CT angiogram of the chest was performed from the upper abdomen to the thoracic inlet utilizing the pulmonary embolus protocol. Images are reviewed in the axial, sagittal, and coronal planes. 3-D MIPS images are created and assessed. IV contrast was administered without complication. A dose lowering technique was utilized adhering to the principles of ALARA. CT DOSE: 993.11 mGy.cm FINDINGS: Thyroid: Imaged portions of the thyroid gland are normal in size and attenuation. Thoracic aorta: The thoracic aorta is normal in caliber and demonstrates standard 3-vessel arch anatomy. No dissection is seen. Pulmonary vasculature: The pulmonary trunk is normal in caliber. There are no filling defects identified in main, lobar, or segmental pulmonary branches to suggest pulmonary embolus. Heart: The heart is top normal in size and without pericardial effusion. Lungs and pleural spaces: There are small pleural effusions with associated atelectasis. There is mild intralobular septal thickening. Foci of patchy groundglass change are present throughout both lungs. The trachea and central airways are clear. Mediastinum: There are mildly enlarged based on lymph nodes a subcarinal node measures 1.9 cm short axis. A precarinal node measures 1.2 cm in short axis. Margaret: Mildly enlarged hilar nodes measure up to 1.3 cm in short axis. Axillae: There is no axillary lymphadenopathy. Upper abdomen: The liver appears enlarged and steatotic. The spleen is enlarged measuring 14.7 cm in length. A tiny hiatal hernia is identified. Skeletal structures: No lytic or blastic bony lesions are seen. IMPRESSION: 1. There is no evidence of pulmonary embolus in the main, lobar, or segmental pulmonary arteries. 2. The heart is top normal in size. 3. There is diffuse intralobular septal thickening with foci of patchy groundglass change seen throughout both lungs. The appearance is most suggestive of pulmonary edema. An infectious/inflammatory pneumonitis is considered less likely but is the top differential consideration. Clinical correlation will be essential. 4. Small pleural effusions. 5. Mildly enlarged mediastinal and hilar lymph nodes. 6. Hepatomegaly and hepatic steatosis. 7. Splenomegaly. Electronically signed by: Juan R Penaloza M.D. 09/19/2017 9:56 PM Dictated Date/Time: 09/19/2017 9:51 PM
--- NOTE | 2017-09-19 22:24 | DIAGNOSTIC IMAGING REPORT ---
ULTRASOUND BILATERAL LOWER EXTREMITY VENOUS CLINICAL HISTORY: Calf tenderness. COMPARISON STUDY: No priors. TECHNIQUE: Real-time, grayscale, and color Doppler sonography of the deep veins of the right and left lower extremity was performed from the inguinal crease to the calf. Compression and augmentation were utilized. FINDINGS: There is no sonographic evidence of deep venous thrombosis identified in the right or left lower extremity. The common femoral, superficial femoral, and popliteal veins are patent and normally compressible bilaterally. The greater saphenous vein and the profunda femoris vein at the junction with the common femoral vein are clear in both legs. The visualized calf veins are patent bilaterally. IMPRESSION: There is no sonographic evidence of deep venous thrombosis identified in the right or left lower extremity. Electronically signed by: Juan R Penaloza M.D. 09/19/2017 10:22 PM Dictated Date/Time: 09/19/2017 10:22 PM
--- NOTE | 2017-09-19 22:39 | EMERGENCY ROOM VISIT NOTE ---
ED Visit Note First contact with patient: 18:23 The patient was seen and examined with Dr. Hancock, resident physician. We discussed the case and treatments ordered, reviewed the results, and determine the disposition. Please refer to the resident's note for additional details. I have been directly involved with the management and disposition as well as independently evaluated the patient as documented in this note.
[2017-09-20] MEDS ORDERED: ALBUTEROL 0.5% NEB SOLN 2.5 MG/0.5 ML VIAL INH PRN (00:15)
[2017-09-20] MEDS ORDERED: ONDANSETRON INJ 2 MG/ML 2 ML VIAL IV PRN (00:15)
[2017-09-20] MEDS ORDERED: IV FLUIDS COMPLETED PRN (01:00)
[2017-09-20 01:08] VITALS: BP 171/88; PULSE 61; TEMP 36.9; O2SAT 100; Ht 180.3 cm; Wt 175.9 kg
--- NOTE | 2017-09-20 01:13 | HISTORY & PHYSICAL EXAMINATION ---
DATE OF ADMISSION: 09/20/2017 PRIMARY CARE PHYSICIAN: Dr. Gale. CHIEF COMPLAINT: Shortness of breath for the last 2 days with wheezing. HISTORY OF PRESENT COMPLAINT: He is a 31-year-old obese male with significant past medical history of morbid obesity, hypothyroidism, psoriasis, history of tobacco use disorder and obesity hypoventilation syndrome, gout, depression, has been complaining of increasing shortness of breath for the last 2 days with wheezing. He has been exposed to cold on last Sunday and he has been complaining of these symptoms for the last 2 days. He has been short of breath on minimal exertion. He was given 20 of Lasix regularly but maybe he thinks it has not been working and he does have more swelling of the legs associated with the symptoms, but he does not have any fever, chills or rigors. He denies to have any chest pain, palpitation. No abdominal pain, nausea and/or vomiting. In the Emergency Room, he was hemodynamically stable but initially his saturation was low and I was told that whenever he was trying to walk around his saturation went below 90 and the CAT scan of the chest did show probable interstitial edema/pneumonitis. From that point, he was advised admission. PAST MEDICAL HISTORY: Significant for morbid obesity with obesity hypoventilation syndrome, hypothyroidism, history of psoriasis, gout and also recent history of bilateral cellulitis. PAST SURGICAL HISTORY: Nothing significant. SOCIAL HISTORY: He has been smoking. Does not use any drugs. He is single. He is employed. FAMILY HISTORY: Significant for cancer, diabetes, heart disease, hypertension and also seizure disorder involving parents of either side. ALLERGIES: HE IS ALLERGIC TO AMOXICILLIN, AZITHROMYCIN, CEFEPIME AND KETOROLAC. MEDICATIONS: As an outpatient, he has been taking Benadryl 50 mg q. 6 hourly p.r.n. for rash, furosemide 20 mg daily, ibuprofen 800 mg q. 8 hourly p.r.n. for pain, doxycycline 100 mg b.i.d., finished the course, allopurinol 100 mg tablet 2 tablets daily, Lexapro 20 mg daily, and levothyroxine 50 mcg daily. REVIEW OF SYSTEMS: All other systems reviewed are unremarkable except for those mentioned in history of present complaint. PHYSICAL EXAMINATION: GENERAL: On examination in the Emergency Room, he was not having any shortness of breath or wheezing following receiving albuterol treatment. VITAL SIGNS: Temperature 36.5, of pulse 67, blood pressure 174/104 and saturation 97% on room air but went down on ambulation. HEENT: Unremarkable. NECK: Supple. No JVD, no bruit. CHEST: Decreased breath sounds but no wheezing and/or crackles. HEART: S1, S2, regular. ABDOMEN: Soft, benign. Difficult to feel for any organ . Bowel sounds present. EXTREMITIES: Bilaterally leg edema, but no evidence of cellulitis. He does have excoriation of the skin secondary to severe reaction secondary to penicillin during the last admission. MUSCULOSKELETAL: No acute arthritis in any joint. CENTRAL NERVOUS SYSTEM: He was alert, awake, oriented x3. LABORATORY DATA: Noted today, white count was 5.14, H&H 10.0/30.0, platelet was 180. Sodium 141, potassium 5.3, chloride 113, CO2 24, BUN 53, creatinine 1.76. LFTs unremarkable. Troponin less than 0.01. BNP was 1227. D-dimer was 2110. Chest x-ray reported as diffuse coarsening of the interstitial area, could be secondary to inflammatory pneumonitis/ pulmonary edema. Venous Doppler of the legs, no evidence of DVT. CT of the chest, PE protocol, no evidence of pulmonary embolism, heart is top normal in size. There is diffuse intralobular septal thickening with foci of patchy ground-glass changes seen throughout both lungs. The appearance is most suggestive of pulmonary edema. An infectious/inflammatory pneumonitis is considered less likely but the top of the differential diagnosis. Small pleural effusions, mildly enlarged mediastinal and hilar lymph nodes, hepatomegaly and hepatic steatosis and splenomegaly. EKG was in sinus rhythm, rate of 50 per minute and no significant ST-T wave changes. IMPRESSION AND PLAN: 1. Shortness of breath with wheezing, could be secondary to interstitial pulmonary edema and/or less likely of infectious process, could be inflammatory. He was admitted to medical floor. We will try a small dose of Lasix keeping in mind that his creatinine is up as well. Monitor creatinine as well. We will get echocardiogram to evaluate cardiac function. We will not put him on any antibiotic at this time. He may need pulmonary evaluation if the symptom is not any better and the pneumonitis persist. 2. Morbid obesity with obesity hypoventilation syndrome, does not have any acute symptoms at this time. 3. Depression. Continue with Lexapro. 4. Hypothyroidism. Continue with replacement therapy. 5. Gout. No acute gout attack at this time. 6. Acute kidney injury, may be contributed by overuse of ibuprofen. We will stop this medicine at this time and avoid any nephrotoxin drugs. He has been getting Lasix. We will monitor kidney function. 7. Gastrointestinal prophylaxis with Maalox, Mylanta as needed. 8. Deep venous thrombosis prophylaxis with subcutaneous heparin. 9. Code status, he will be full code. In my clinical judgment, the beneficiary meets criteria as per CMS for 2 midnight stay in the hospital. BLAINE
[2017-09-20] MEDS ORDERED: FUROSEMIDE INJ 40 MG in SYRINGE 0 ML IV STA (01:19)
[2017-09-20] MEDS: LEVOTHYROXINE 50 MCG TAB PO SCH (06:25)
[2017-09-20 09:03] VITALS: BP 171/107; PULSE 65; TEMP 37
[2017-09-20] MEDS: ACETAMINOPHEN 325 MG TAB PO PRN ×2 (09:22→19:23)
[2017-09-20 09:25] LABS: BASO % 1.4 %; BASO ABS # 0.06 K/uL (0-0.2); EOS % 2.6 %; EOS ABS # 0.11 K/uL (0-0.5); HEMOGLOBIN 10.1 g/dL (14.0-18.0); LYMPH % 36.1 %; LYMPH ABS # 1.53 K/uL (1.2-3.4); MEAN CELL VOLUME 88.8 fL (80-100); MEAN CORPUSCULAR HEMOGLOBIN 28.9 pg (25-34); MEAN PLATELET VOLUME 10.3 fL (7.4-10.4); MONO ABS # 0.34 K/uL (0.11-0.59); NEUT % 51.9 %; PLATELET COUNT 181 K/uL (130-400); RED CELL DISTRIBUTION WIDTH CV 15.3 % (11.5-14.5); RED CELL DISTRIBUTION WIDTH SD 48.9 fL (36.4-46.3); WHITE BLOOD COUNT 4.24 K/uL (4.8-10.8)
[2017-09-20 09:28] LABS: MEAN CORPUSCULAR HGB CONC 32.6 g/dl (32-36)
[2017-09-20] MEDS: ESCITALOPRAM OXALATE 20 MG TAB PO SCH (09:39)
[2017-09-20] MEDS: ALLOPURINOL 100 MG TAB PO SCH (09:40)
[2017-09-20] MEDS: FUROSEMIDE INJ 40 MG in SYRINGE 0 ML IV SCH (09:42)
[2017-09-20 09:44] LABS: ALBUMIN 2.6 gm/dl (3.4-5.0); CALCIUM 8.9 mg/dl (8.5-10.1); CREATININE 1.82 mg/dl (0.60-1.40); POTASSIUM 5.1 mmol/L (3.5-5.1)
[2017-09-20] MEDS: HEPARIN SOD 5000 UNIT/0.5 ML CARP SQ SCH ×2 (09:44→20:36)
[2017-09-20 09:47] LABS: TOTAL PROTEIN 6.9 gm/dl (6.4-8.2)
--- NOTE | 2017-09-20 10:02 | ECHOCARDIOGRAM REPORT ---
*NOTICE TO RECEIVING [employer] This information is strictly Confidential and protected under [place] law. [place] law prohibits you from making any further disclosure of this information unless further disclosure is expressly permitted by the written consent of the person to whom it pertains or is authorized by law. A general authorization for the release of medical or other information is not sufficient for this purpose. Hospital accepts no responsibility if the information is made available to any other person, INCLUDING THE PATIENT. Interpretation Summary * Name: HUI HARDING Study Date: 09/20/2017 07:44 AM BP: 171/88 mmHg * Patient Location: .4E\S\E416\S\1 HR: 61 * : 1985 (M/d/yyyy) Gender: Male Height: 71 in * Age: 31 yrs Ethnicity: CA Weight: 377 lb * Ordering Physician: Ina Herbert * Referring Physician: Self, Referred * Performed By: Elida Auguste RCS * * Reason For Study: CHF * BSA: 2.8 m2 * -- Conclusions -- * Normal LV chamber size and wall thickness. * Normal LV systolic function, EF 65-70%. * No segmental left ventricular wall motion abnormalities are noted. * Normal diastolic function. * No significant valvular pathology. Procedure Details * A complete two-dimensional transthoracic echocardiogram was performed (2D, M-mode, Doppler and color flow Doppler). * There were technical limitations due to patient'sbody habitus * Patient supine for imagining * A contrast injection of Definity was performed to improve assessment of LV function. * Contrast was injected into an intravenous site in the left arm. * One vial of Definity ultrasound contrast was diluted in normal saline to a total volume of 10 ml. A total of '1' ml of solution was administered during imaging. * Lot # [id number] of Definity utilized for procedure. * Expiration date . * The attending nurse who injected the contrast agent was Hui Schulte RN. Left Ventricle * The left ventricle is normal in size. * There is normal left ventricular wall thickness. * Left ventricular systolic function is normal. * No segmental left ventricular wall motion abnormalities are noted. * Ejection Fraction = 65-70%. * The left ventricular wall motion is normal. Right Ventricle * The right ventricular cavity size is normal (basal dimension <4.2 cm in right ventricular apical 4-chamber view). * The right ventricular systolic function is normal as assessed by tricuspid annular plane systolic excursion (TAPSE) (normal >1.5 cm). Atria * The left atrium is moderately dilated. * Right atrial size is normal. * No ASD detected; PFO is not assessed. Mitral Valve * The mitral valve is normal in structure and function. Tricuspid Valve * The tricuspid valve is normal in structure and function. Aortic Valve * The aortic valve is not well visualized. * No hemodynamically significant valvular aortic stenosis. * There is no significant aortic regurgitation. Pulmonic Valve * The pulmonary valve is not well seen, but the Doppler examination is normal without significant regurgitation or stenosis. Great Vessels * The aortic root and proximal ascending aorta are normal sized. Pericardium/Pleural * There is no pericardial effusion. Left Ventricular Diastolic Function * Pulse wave TDI of the anterior and posterior mitral annulas demonstrates normal LV relaxation MMode 2D Measurements and Calculations Ao root diam 3.2 cm Ao root area 8.1 cm\S\2 ACS 1.2 cm LA dimension 5.0 cm asc Aorta Diam 2.9 cm LA/Ao 1.6 EDV(MOD-sp4) 152.7 ml ESV(MOD-sp4) 45.7 ml EF(MOD-sp4) 70.1 % EDV(MOD-sp2) 182.0 ml ESV(MOD-sp2) 74.7 ml EF(MOD-sp2) 59.0 % SV(MOD-sp4) 107.0 ml SI(MOD-sp4) 38.8 ml/m\S\2 SV(MOD-sp2) 107.3 ml SI(MOD-sp2) 38.9 ml/m\S\2 Doppler Measurements and Calculations MV E max raj 143.9 cm/sec MV A max raj 94.7 cm/sec MV E/A 1.5 MV P1/2t max raj 150.1 cm/sec MV P1/2t 94.0 msec MVA(P1/2t) 2.3 cm\S\2 MV dec slope 467.9 cm/sec\S\2 MV dec time 0.23 sec Ao V2 max 181.2 cm/sec Ao max PG 13.1 mmHg Ao max PG (full) 4.4 mmHg LV V1 max PG 8.7 mmHg LV V1 max 147.4 cm/sec PA V2 max 106.1 cm/sec PA max PG 4.5 mmHg TR max raj 223.0 cm/sec
[2017-09-20 10:57] VITALS: BP 161/96; PULSE 65; O2SAT 96
[2017-09-20 10:59] VITALS: O2SAT 96
[2017-09-20] MEDS ORDERED: PERFLUTREN LIPID MICROSPHERE (DEFINITY) IV ONE (11:07)
--- NOTE | 2017-09-20 12:09 | Pulmonary Consultation ---
History General Date of Service: Sep 20, 2017. Stated Complaint: Kevin, Pulmonary Edema, Sob HPI The patient is a 31 year old male who presents to [facility] with complaints of Kevin, Pulmonary Edema, Sob. The patient's primary care provider is Jose Gale MD. Historian: patient Onset: last week Complaint Status: persistent Review of Systems Constitutional: reports: no symptoms Eyes: reports: no symptoms ENT: reports: no symptoms Cardiovascular: reports: no symptoms Respiratory: reports: shortness of breath, wheezing Gastrointestinal: reports: no symptoms Musculoskeletal: reports: no symptoms Integumentary: reports: rash Neurologic: reports: no symptoms Psychiatric: reports: no symptoms Endocrine: cold intolerance Allergic / Immunologic: no symptoms Past Medical History Past Medical History: Hypothyroidism, morbid obesity, recent history of cellulitis, psoriasis of the skin. Family History Cancer Diabetes mellitus Heart disease Hypertension Kidney disease Kidney stones Seizures Grandparent: Heart Disease, Renal Disease Social History Hx Tobacco Use In Past Year?: Yes Smoking Status: Current Every Day Smoker Marital status: single Occupational Status: employed Allergies Coded Allergies: Amoxicillin (Unverified Allergy, Severe, ANAPHYLAXIS, 09/02/17) Penicillins (Unverified Allergy, Severe, ANAPHYLAXIS, 09/02/17) Azithromycin (Unverified Allergy, Unknown, , 09/02/17) Cefepime (Verified Allergy, Unknown, RASH, 09/05/17) Ketorolac Tromethamine (Verified Allergy, Unknown, RASH, 09/03/17) Current Medications Reported Home Medications Medications Dose Route/Sig Max Daily Dose Days Date Category Dose Instructions Lasix (Furosemide) 20 Mg Tab 20 Mg PO DAILY 09/19/17 Reported Advil (Ibuprofen) 200 Mg Tab 800 Mg PO Q8 PRN 09/19/17 Reported Lexapro (Escitalopram Oxalate) 20 Mg Tab 20 Mg PO DAILY 09/19/17 Reported Doxycycline (Doxycycline (Monohydrate)) 100 Mg Cap 100 Mg PO BID 09/19/17 Reported PRESCRIBED 09/06/2017, TAKE DIRECTED Benadryl (Diphenhydramine Hcl) 25 Mg Cap 50 Mg PO Q6H PRN 09/19/17 Reported Allopurinol 100 Mg Tab 200 Mg PO DAILY 09/06/17 Reported Levothyroxine Sodium 50 Mcg Tab 50 Mcg PO DAILY 09/02/17 Reported TAKE THIS MEDICATION 30 MINUTES BEFORE BREAKFAST OR ANY OTHER MEDICATIONS Physical Physical Exam Vital Signs: Date Time Temp Pulse Resp B/P (MAP) Pulse Ox O2 Delivery O2 Flow Rate FiO2 09/20/17 10:59 96 09/20/17 10:57 65 16 161/96 (117) 96 09/20/17 10:00 Room Air 09/20/17 09:03 37.0 65 18 171/107 (128) 09/20/17 01:08 36.9 61 16 171/88 100 Room Air 09/20/17 00:32 63 18 165/79 99 Room Air 09/19/17 23:19 68 09/19/17 21:46 59 18 162/87 100 Room Air 09/19/17 20:11 59 18 195/101 100 Room Air 09/19/17 19:15 58 09/19/17 18:49 100 Room Air 09/19/17 17:44 97 09/19/17 17:38 36.5 67 18 174/104 97 Room Air General Appearance: WELL-APPEARING, WD/WN, NO APPARENT DISTRESS Eyes: PERRLA, NO DISCHARGE, EOMI ENT: NORMAL NASAL EXAM, NORMAL MOUTH EXAM Neck: NORMAL RANGE OF MOTION Respiratory: BREATH SOUNDS NORMAL, CLEAR TO AUSCULTATION Cardiovasular: REGULAR RATE/RHYTHM, NORMAL S1S2, NO M/G/R Abdomen: NON TENDER, NORMAL BOWEL SOUNDS Lower Extremities: edema Neuro: ALERT, ORIENTED x 3, NORMAL MOTOR EXAM Diagnostics Labs Results Past 24 Hours Test 09/19/17 18:35 09/19/17 19:43 09/20/17 09:08 Range/Units Sodium Level 141 143 136-145 mmol/L Potassium Level 5.3 5.1 3.5-5.1 mmol/L Chloride Level 113 114 98-107 mmol/L Carbon Dioxide Level 24 25 21-32 mmol/L Anion Gap 4.0 4.0 3-11 mmol/L Blood Urea Nitrogen 53 48 7-18 mg/dl Creatinine 1.76 1.82 0.60-1.40 mg/dl Est Creatinine Clear Calc Drug Dose 96.9 95.2 ml/min Estimated GFR () 58.0 55.7 Estimated GFR (Non- 50.1 48.1 BUN/Creatinine Ratio 30.3 26.3 10-20 Random Glucose 72 79 70-99 mg/dl Calcium Level 9.0 8.9 8.5-10.1 mg/dl Magnesium Level 2.1 1.8-2.4 mg/dl Total Bilirubin 0.4 0.5 0.2-1 mg/dl Aspartate Amino Transf (AST/SGOT) 33 26 15-37 U/L Alanine Aminotransferase (ALT/SGPT) 56 48 12-78 U/L Alkaline Phosphatase 83 78 45-117 U/L Troponin I < 0.015 0-0.045 ng/ml Pro-B-Type Natriuretic Peptide 1227 0-450 pg/ml Total Protein 7.5 6.9 6.4-8.2 gm/dl Albumin 3.0 2.6 3.4-5.0 gm/dl Globulin 4.5 4.3 2.5-4.0 gm/dl Albumin/Globulin Ratio 0.7 0.6 0.9-2 White Blood Count 5.14 4.24 4.8-10.8 K/uL Red Blood Count 3.41 3.49 4.7-6.1 M/uL Hemoglobin 10.0 10.1 14.0-18.0 g/dL Hematocrit 30.0 31.0 42-52 % Mean Corpuscular Volume 88.0 88.8 80-100 fL Mean Corpuscular Hemoglobin 29.3 28.9 25-34 pg Mean Corpuscular Hemoglobin Concent 33.3 32.6 32-36 g/dl Platelet Count 180 181 130-400 K/uL Mean Platelet Volume 10.6 10.3 7.4-10.4 fL Neutrophils (%) (Auto) 58.6 51.9 % Lymphocytes (%) (Auto) 31.5 36.1 % Monocytes (%) (Auto) 6.2 8.0 % Eosinophils (%) (Auto) 2.7 2.6 % Basophils (%) (Auto) 1.0 1.4 % Neutrophils # (Auto) 3.01 2.20 1.4-6.5 K/uL Lymphocytes # (Auto) 1.62 1.53 1.2-3.4 K/uL Monocytes # (Auto) 0.32 0.34 0.11-0.59 K/uL Eosinophils # (Auto) 0.14 0.11 0-0.5 K/uL Basophils # (Auto) 0.05 0.06 0-0.2 K/uL RDW Standard Deviation 47.7 48.9 36.4-46.3 fL RDW Coefficient of Variation 14.8 15.3 11.5-14.5 % Immature Granulocyte % (Auto) 0.0 0.0 % Immature Granulocyte # (Auto) 0.00 0.00 0.00-0.02 K/uL D-Dimer 2110 0-500 ug/L FEU Radiology Interpretation: other (I have reviewed personally the CAT scan of the chest and the previous chest x-ray which showed bilateral groundglass opacity consistent with pulmonary edema and small pleural effusion bilaterally. There is small sub centimeter nonpathologic mediastinal lymphadenopathy. No consolidation or infiltrate.) Impression Assessment and Plan #1 pulmonary edema, in the face of chronic kidney disease of unknown etiology and possible vascular disease such as cardiomyopathy, echocardiogram did not support the diagnosis however it could be an early sign. The patient has risk factors for it including morbid obesity and obstructive sleep apnea likely. #2 although renal pulmonary syndrome cannot be ruled out given the fact patient does have skin features such as exfoliation of the skin, psoriasis can affect soft tissues including the lung however most of the effect usually is interstitial and nodular, the patient does not have interstitial changes and the changes are only groundglass opacities. #3 obstructive sleep apnea with all the risk factors for possible vascular disease in the future. #4 chronic kidney disease of unknown etiology. Plan: #1 I will obtain serology for connective tissue disease. #2 diuresis despite the elevated BUN/creatinine. #3 cardiology input. #4 obtain polysomnography CROW, the patient needs to be treated for sleep apnea as soon as possible. #5 no additional medications is necessary at this point. Thank you, will follow.
[2017-09-20] MEDS ORDERED: BUTALBITAL/ACETAMIN/CAFFEINE TAB PO ONE (20:05)
--- NOTE | 2017-09-20 20:12 | Progress Note ---
Progress Note Date of Service Sep 20, 2017. Progress Note Subjective: patient reporting that breathing has improved. Complaints of leg swelling General: obese Lungs: on room air, no wheezing, good air entry Heart: Regular rate Abdomen: truncal obesity, nontender, + bowel sounds Extremities: edema Plan Pulmonary was consulted for abnormal CT scan results; as per pulmonary physician the patient does not have interstitial changes and the changes are only groundglass opacities but there is presence of pulmonary edema Will continue to diurese patient however there is concern that this will worsen renal function and so as per pulmonary consultation, will also ask cardiology service to assist in diuresis management The echocardiogram did not reveal evidence for CHF however pulmonary service raises concern for renal pulmonary syndrome or connective tissue disease. Labs were sent by pulmonary service to investigate autoimmune markers Possible KATHE: start CPAP, patient will need polysomnography Depression. Continue with Lexapro. Hypothyroidism. Continue with replacement therapy. Gout. No acute gout attack at this time. Gastrointestinal prophylaxis with Maalox, Mylanta as needed. Deep venous thrombosis prophylaxis with subcutaneous heparin.
[2017-09-20] MEDS ORDERED: BUTALBITAL/ACETAMIN/CAFFEINE TAB PO PRN (20:15)
[2017-09-20 21:47] VITALS: PULSE 84; O2SAT 96
[2017-09-20 23:07] VITALS: BP 153/80; PULSE 60; TEMP 37; O2SAT 100
[2017-09-21] MEDS: LEVOTHYROXINE 50 MCG TAB PO SCH (05:48)
[2017-09-21 07:51] VITALS: BP 157/68; PULSE 52; TEMP 36.5; O2SAT 94
[2017-09-21] MEDS: FUROSEMIDE INJ 40 MG in SYRINGE 0 ML IV SCH (09:07)
[2017-09-21] MEDS: ESCITALOPRAM OXALATE 20 MG TAB PO SCH (09:07)
[2017-09-21] MEDS: ALLOPURINOL 100 MG TAB PO SCH (09:07)
[2017-09-21] MEDS: HEPARIN SOD 5000 UNIT/0.5 ML CARP SQ SCH (09:11)
[2017-09-21 09:23] LABS: HEMATOCRIT 30.8 % (42-52); MEAN CELL VOLUME 88.5 fL (80-100); MEAN CORPUSCULAR HEMOGLOBIN 28.7 pg (25-34); MEAN CORPUSCULAR HGB CONC 32.5 g/dl (32-36); MEAN PLATELET VOLUME 10.4 fL (7.4-10.4); PLATELET COUNT 173 K/uL (130-400); RED CELL DISTRIBUTION WIDTH CV 15.1 % (11.5-14.5); RED CELL DISTRIBUTION WIDTH SD 48.7 fL (36.4-46.3); WHITE BLOOD COUNT 4.55 K/uL (4.8-10.8)
[2017-09-21 09:50] LABS: CALCIUM 8.4 mg/dl (8.5-10.1); CREATININE 1.62 mg/dl (0.60-1.40); POTASSIUM 4.9 mmol/L (3.5-5.1)
[2017-09-21 09:51] LABS: PHOSPHORUS 3.9 mg/dl (2.5-4.9)
--- NOTE | 2017-09-21 13:38 | CARDIOLOGY CONSULTATION ---
DATE OF CONSULTATION: 09/21/2017 CONSULTATION REQUESTED BY: Dr. Pimentel. REASON FOR CONSULTATION: Possible connective tissue disease. HISTORY OF PRESENT ILLNESS: Mr. Aguayo is a very pleasant, yet morbidly obese 31-year-old gentleman who presented to [facility] Emergency Department on 09/19/2017 with a complaint of shortness of breath and wheezing for 2 days. The patient states that his symptoms started approximately 2 days ago when he was exposed to some cold air. Ever since then, he has been having dyspnea with minimal exertion and having audible wheezing in his chest. The patient is a long-term smoker. He denied any other complaints of fevers, chills, chest pain, palpitations, lightheadedness, dizziness, or syncope. In the Emergency Department, he was found to have some desaturations and a CTA of the chest showed probable interstitial edema/pneumonitis and he was admitted to telemetry. He was started on diuretics with some negative urine output, but at the same time, he had worsening of his renal function. A 2D echocardiogram was performed, which showed essentially structurally normal heart. PAST SURGICAL HISTORY: Denies. MEDICAL ILLNESSES: 1. Morbid obesity. 2. Obesity hypoventilation. 3. Hypothyroidism. 4. Psoriasis. 5. Gout. 6. Recent cellulitis. FAMILY HISTORY: He denies any premature coronary artery disease or sudden cardiac . SOCIAL HISTORY: The patient does smoke cigarettes. He denies any significant alcohol use. Denies any recreational drug use. 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 REVIEW OF SYSTEMS: As per HPI. All other systems reviewed and negative at this time. ALLERGIES: 1. AMOXICILLIN. 2. AZITHROMYCIN. 3. CEFEPIME. 3. KETOROLAC. MEDICATIONS CURRENTLY: 1. Allopurinol 200 mg daily. 2. Lexapro 20 mg daily. 3. Lasix 40 mg IV daily. 4. Synthroid daily. PHYSICAL EXAMINATION: VITALS: Temperature 36.5, pulse 52, respiratory rate 12, and blood pressure 157/68. GENERAL: Awake, alert, and oriented x3, in no acute distress. Morbidly obese. HEENT: Normocephalic and atraumatic. Pupils equal, round, and reactive to light and accommodation. Extraocular muscles intact. Anicteric sclerae. Moist mucous membranes. NECK: No JVD. No bruit. CARDIOVASCULAR: Regular, but distant. No murmurs, rubs or gallops. PULMONARY: Relatively clear with some scattered wheezing. No rhonchi or rales. ABDOMEN: Bowel sounds x4. Soft. No rebound, guarding, or tenderness. No organomegaly. EXTREMITIES: No clubbing, cyanosis or edema. Some scaling of the lower extremity soft tissue. +1 pedal pulses bilaterally. SKIN: Otherwise warm and dry. TEST RESULTS: 2D echocardiogram performed on 09/20/2017 was read as normal LV chamber size and wall thickness, normal LV systolic function, EF 65%-70%. No segmental left ventricle wall motion abnormalities were noted. Normal diastolic function. No significant valvular pathology. CTA of the chest was read as no evidence of pulmonary emboli. The heart is top normal in size. There is diffuse interlobular septal thickening with patchy ground-glass changes seen throughout both lungs. The appearance is most suggestive of pulmonary edema and infectious/inflammatory pneumonitis considered less likely was the top differential. Small pleural effusions. Mildly enlarged mediastinal and hilar lymph nodes. Hepatic steatosis and splenomegaly. LABORATORY STUDIES OF SIGNIFICANCE: Sodium 144, potassium 4.9, BUN 38, and creatinine 1.6. White count 4.5, hemoglobin 10, and platelet count 173. A 12-lead EKG performed in the Emergency Department independently reviewed at this time shows sinus bradycardia at 58 beats per minute. Normal axis, normal intervals, and normal study. IMPRESSION: 1. Structurally normal heart. 2. Morbid obesity. 3. Shortness of breath, improving. RECOMMENDATIONS: It was my pleasure to see Mr. Aguayo in consultation today. The patient was counseled given the fact that his heart is structurally normal except for some left atrial enlargement, but I do not see any cardiac component to his shortness of breath or to the CT findings. He was counseled that left atrial enlargement does suggest longstanding hypertension and also likely exacerbated by his weight and weight loss has been recommended and I believe he would benefit from outpatient nutrition evaluation. Otherwise, he was told in no uncertain terms that he absolutely must stop smoking. His blood pressure is elevated at this time. So, we will start him on very low dose amlodipine 2.5 mg daily for further blood pressure control that can be up titrated as necessary. Otherwise, he does have borderline pancytopenia and I would recommend further workup there as well, but otherwise no cardiac workup is necessary at this time.
[2017-09-21 13:43] VITALS: BP 131/77; PULSE 59
[2017-09-21] MEDS ORDERED: AMLODIPINE BESYLATE 5 MG TAB PO ONE (13:45)
[2017-09-21 15:29] VITALS: BP 146/86; PULSE 61; TEMP 36.9; O2SAT 98
--- NOTE | 2017-09-21 17:00 | Progress Note ---
Internal Med Progress Note Date of Service: Sep 21, 2017. Provider Documentation: SUBJECTIVE: Patient ambulatory and breathing on room air. OBJECTIVE: General: obese Lungs: on room air, no wheezing, good air entry Heart: Regular rate Abdomen: truncal obesity, nontender, + bowel sounds Extremities: edema of lower extremities bilaterally ASSESSMENT & PLAN: 31 year old M presents to the hospital for shortness of breath and lower extremity swelling Patient had abnormal Chest/Thorax CTA 1. There is no evidence of pulmonary embolus in the main, lobar, or segmental pulmonary arteries. 2. The heart is top normal in size. 3. There is diffuse intralobular septal thickening with foci of patchy groundglass change seen throughout both lungs. The appearance is most suggestive of pulmonary edema. An infectious/inflammatory pneumonitis is considered less likely but is the top differential consideration. Clinical correlation will be essential. 4. Small pleural effusions. 5. Mildly enlarged mediastinal and hilar lymph nodes. 6. Hepatomegaly and hepatic steatosis. 7. Splenomegaly. Pulmonary service was consulted for the abnormal CT scan results; as per pulmonary physician the patient does not have interstitial changes and the changes are only groundglass opacities but there is presence of pulmonary edema. Pulmonary service raises concern for renal pulmonary syndrome or connective tissue disease. Labs were sent by pulmonary service to investigate autoimmune marker. (anti-CCP IgG antibodies were not detected in the sample, pending results for IgE, HADLEY, Anti Proteinase 3, Anti Myeloperoxidase, ANCA, Brooke-1, WEATHER CLERK) With the report of hepatomegaly and splenomegaly, and mildly enlarged lymph nodes, patient also noted to have anemia with Hgb of 10 which is unusual in a young male patient. Iron deficiency labs also to be sent Renal service ordering Hepatitis panel, SPEP, UPEP Patient prefers to follow up with primary care physician while waiting for test results to return 09/27/2017 2:20 PM Jose Gale MD [facility] Patient also had elevations of creatinine above baseline which could be from over use of Ibuprofen vs being on Lasix Patient has follow up appointment made for nephrology 10/05/2017 10:40 AM Marlon Victoria MD Nephrology 2nd Floor, [place] Patient was also evaluated inpatient by cardiology service Dr. Tom Echocardiogram Normal LV chamber size and wall thickness. Normal LV systolic function, EF 65-70%. No segmental left ventricular wall motion abnormalities are noted. Normal diastolic function. No significant valvular pathology "The patient was counseled given the fact that his heart is structurally normal except for some left atrial enlargement, but I do not see any cardiac component to his shortness of breath or to the CT findings. He was counseled that left atrial enlargement does suggest longstanding hypertension and also likely exacerbated by his weight and weight loss has been recommended and I believe he would benefit from outpatient nutrition evaluation. Otherwise, he was told in no uncertain terms that he absolutely must stop smoking. His blood pressure is elevated at this time. So, we will start him on very low dose amlodipine 2.5 mg daily for further blood pressure control that can be up titrated as necessary. Otherwise, he does have borderline pancytopenia and I would recommend further workup there as well, but otherwise no cardiac workup is necessary at this time." At this time, will advise patient to take 20 mg Lasix BID up until follow up appointment with primary care doctor 09/27/2017 2:20 PM Jose Gale MD [facility] to treat for swelling of lower extremities and shortness of breath. Despite these findings of the Chest/Thorax CTA scan, patient has been ambulatory and breathing on room air. Patient should return to the emergency room immediately if worsening shortness of breath. Patient also is asked to avoid Ibuprofen products to prevent kidney damage. Vital Signs: Date Time Temp Pulse Resp B/P (MAP) Pulse Ox O2 Delivery O2 Flow Rate FiO2 09/21/17 16:39 Room Air 09/21/17 15:29 36.9 61 19 146/86 (106) 98 Room Air 09/21/17 13:43 59 131/77 (95) 09/21/17 10:00 Room Air 09/21/17 07:51 36.5 52 18 157/68 (97) 94 Room Air 09/21/17 00:30 Room Air 09/20/17 23:07 37.0 60 18 153/80 (104) 100 Room Air 09/20/17 21:47 84 96 Lab Results: Results Past 24 Hours Test 09/21/17 08:58 09/21/17 17:11 Range/Units White Blood Count 4.55 4.8-10.8 K/uL Red Blood Count 3.48 4.7-6.1 M/uL Hemoglobin 10.0 14.0-18.0 g/dL Hematocrit 30.8 42-52 % Mean Corpuscular Volume 88.5 80-100 fL Mean Corpuscular Hemoglobin 28.7 25-34 pg Mean Corpuscular Hemoglobin Concent 32.5 32-36 g/dl RDW Standard Deviation 48.7 36.4-46.3 fL RDW Coefficient of Variation 15.1 11.5-14.5 % Platelet Count 173 130-400 K/uL Mean Platelet Volume 10.4 7.4-10.4 fL Sodium Level 141 136-145 mmol/L Potassium Level 4.9 3.5-5.1 mmol/L Chloride Level 114 98-107 mmol/L Carbon Dioxide Level 26 21-32 mmol/L Anion Gap 1.0 3-11 mmol/L Blood Urea Nitrogen 38 7-18 mg/dl Creatinine 1.62 0.60-1.40 mg/dl Est Creatinine Clear Calc Drug Dose 107.0 ml/min Estimated GFR () 64.1 Estimated GFR (Non- 55.3 BUN/Creatinine Ratio 23.7 10-20 Random Glucose 81 70-99 mg/dl Calcium Level 8.4 8.5-10.1 mg/dl Phosphorus Level 3.9 2.5-4.9 mg/dl Magnesium Level 2.0 1.8-2.4 mg/dl Iron Level 58 35-175 mcg/dl Total Iron Binding Capacity 282 250-450 mcg/dl
[2017-09-21] MEDS ORDERED: NRV5 PO (17:30)
--- NOTE | 2017-09-21 17:33 | Discharge Instructions ---
Discharge Instructions Date of Service Sep 21, 2017. Admission Reason for Admission: Kevin, Pulmonary Edema, Sob Discharge Discharge Diagnosis / Problem: shortness of breath, lower extremity edema, pulmonary edema, anemia Discharge Goals Goal(s): Improve function Activity Recommendations Activity Limitations: per Instructions/Follow-up section Shower/Bathe: no limitations . Instructions / Follow-Up Instructions / Follow-Up 31 year old M presents to the hospital for shortness of breath and lower extremity swelling Patient had abnormal Chest/Thorax CTA 1. There is no evidence of pulmonary embolus in the main, lobar, or segmental pulmonary arteries. 2. The heart is top normal in size. 3. There is diffuse intralobular septal thickening with foci of patchy groundglass change seen throughout both lungs. The appearance is most suggestive of pulmonary edema. An infectious/inflammatory pneumonitis is considered less likely but is the top differential consideration. Clinical correlation will be essential. 4. Small pleural effusions. 5. Mildly enlarged mediastinal and hilar lymph nodes. 6. Hepatomegaly and hepatic steatosis. 7. Splenomegaly. Pulmonary service was consulted for the abnormal CT scan results; as per pulmonary physician the patient does not have interstitial changes and the changes are only groundglass opacities but there is presence of pulmonary edema. Pulmonary service raises concern for renal pulmonary syndrome or connective tissue disease. Labs were sent by pulmonary service to investigate autoimmune marker. (anti-CCP IgG antibodies were not detected in the sample, pending results for IgE, HADLEY, Anti Proteinase 3, Anti Myeloperoxidase, ANCA, Brooke-1, [employer]) With the report of hepatomegaly and splenomegaly, and mildly enlarged lymph nodes, patient also noted to have anemia with Hgb of 10 which is unusual in a young male patient. Iron deficiency labs also to be sent Renal service ordering Hepatitis panel, SPEP, UPEP Patient prefers to follow up with primary care physician while waiting for test results to return 09/27/2017 2:20 PM Jose Gale MD [facility] Patient also had elevations of creatinine above baseline which could be from over use of Ibuprofen vs being on Lasix Patient has follow up appointment made for nephrology 10/05/2017 10:40 AM Marlon Victoria MD Nephrology 2nd Floor, [place] Patient was also evaluated inpatient by cardiology service Dr. Tom Echocardiogram Normal LV chamber size and wall thickness. Normal LV systolic function, EF 65-70%. No segmental left ventricular wall motion abnormalities are noted. Normal diastolic function. No significant valvular pathology "The patient was counseled given the fact that his heart is structurally normal except for some left atrial enlargement, but I do not see any cardiac component to his shortness of breath or to the CT findings. He was counseled that left atrial enlargement does suggest longstanding hypertension and also likely exacerbated by his weight and weight loss has been recommended and I believe he would benefit from outpatient nutrition evaluation. Otherwise, he was told in no uncertain terms that he absolutely must stop smoking. His blood pressure is elevated at this time. So, we will start him on very low dose amlodipine 2.5 mg daily for further blood pressure control that can be up titrated as necessary. Otherwise, he does have borderline pancytopenia and I would recommend further workup there as well, but otherwise no cardiac workup is necessary at this time." At this time, will advise patient to take 20 mg Lasix BID up until follow up appointment with primary care doctor 09/27/2017 2:20 PM Jose Gale MD [facility] to treat for swelling of lower extremities and shortness of breath. Despite these findings of the Chest/Thorax CTA scan, patient has been ambulatory and breathing on room air. Patient should return to the emergency room immediately if worsening shortness of breath. Patient also is asked to avoid Ibuprofen products to prevent kidney damage. Current Hospital Diet Patient's current hospital diet: Regular Diet Discharge Diet Recommended Diet: Regular Diet Pending Studies Studies pending at discharge: yes List of pending studies: pending results for IgE, HADLEY, Anti Proteinase 3, Anti Myeloperoxidase, ANCA, Brooke-1, [employer], Hepatitis panel, SPEP, UPEP, iron studies Laboratory Results 09/21/17 08:58 09/21/17 08:58 Test 09/19/17 18:35 09/19/17 19:43 09/20/17 09:08 09/20/17 12:42 Troponin I < 0.015 ng/ml (0-0.045) Pro-B-Type Natriuretic Peptide 1227 pg/ml (0-450) D-Dimer 2110 ug/L FEU (0-500) Immature Granulocyte % (Auto) 0.0 % White Blood Count 4.24 K/uL (4.8-10.8) Red Blood Count 3.49 M/uL (4.7-6.1) Hemoglobin 10.1 g/dL (14.0-18.0) Hematocrit 31.0 % (42-52) Mean Corpuscular Volume 88.8 fL (80-100) Mean Corpuscular Hemoglobin 28.9 pg (25-34) Mean Corpuscular Hemoglobin Concent 32.6 g/dl (32-36) Platelet Count 181 K/uL (130-400) Mean Platelet Volume 10.3 fL (7.4-10.4) Neutrophils (%) (Auto) 51.9 % Lymphocytes (%) (Auto) 36.1 % Monocytes (%) (Auto) 8.0 % Eosinophils (%) (Auto) 2.6 % Basophils (%) (Auto) 1.4 % Neutrophils # (Auto) 2.20 K/uL (1.4-6.5) Lymphocytes # (Auto) 1.53 K/uL (1.2-3.4) Monocytes # (Auto) 0.34 K/uL (0.11-0.59) Eosinophils # (Auto) 0.11 K/uL (0-0.5) Basophils # (Auto) 0.06 K/uL (0-0.2) Immature Granulocyte # (Auto) 0.00 K/uL (0.00-0.02) Total Bilirubin 0.5 mg/dl (0.2-1) Aspartate Amino Transf (AST/SGOT) 26 U/L (15-37) Alanine Aminotransferase (ALT/SGPT) 48 U/L (12-78) Alkaline Phosphatase 78 U/L (45-117) Total Protein 6.9 gm/dl (6.4-8.2) Albumin 2.6 gm/dl (3.4-5.0) Globulin 4.3 gm/dl (2.5-4.0) Albumin/Globulin Ratio 0.6 (0.9-2) Cyclic Citrullinated Peptide IgG Ab < 0.40 U/mL (0-4.99) Test 09/21/17 08:58 09/21/17 17:11 Red Blood Count 3.48 M/uL (4.7-6.1) Mean Corpuscular Volume 88.5 fL (80-100) Mean Corpuscular Hemoglobin 28.7 pg (25-34) Mean Corpuscular Hemoglobin Concent 32.5 g/dl (32-36) RDW Standard Deviation 48.7 fL (36.4-46.3) RDW Coefficient of Variation 15.1 % (11.5-14.5) Mean Platelet Volume 10.4 fL (7.4-10.4) Anion Gap 1.0 mmol/L (3-11) Est Creatinine Clear Calc Drug Dose 107.0 ml/min Estimated GFR () 64.1 Estimated GFR (Non- 55.3 BUN/Creatinine Ratio 23.7 (10-20) Calcium Level 8.4 mg/dl (8.5-10.1) Phosphorus Level 3.9 mg/dl (2.5-4.9) Magnesium Level 2.0 mg/dl (1.8-2.4) Iron Level 58 mcg/dl (35-175) Total Iron Binding Capacity 282 mcg/dl (250-450) 09/21/17 08:58 09/21/17 08:58 Test 09/19/17 18:35 09/19/17 19:43 09/20/17 09:08 09/20/17 12:42 Troponin I < 0.015 ng/ml (0-0.045) Pro-B-Type Natriuretic Peptide 1227 pg/ml (0-450) D-Dimer 2110 ug/L FEU (0-500) Immature Granulocyte % (Auto) 0.0 % White Blood Count 4.24 K/uL (4.8-10.8) Red Blood Count 3.49 M/uL (4.7-6.1) Hemoglobin 10.1 g/dL (14.0-18.0) Hematocrit 31.0 % (42-52) Mean Corpuscular Volume 88.8 fL (80-100) Mean Corpuscular Hemoglobin 28.9 pg (25-34) Mean Corpuscular Hemoglobin Concent 32.6 g/dl (32-36) Platelet Count 181 K/uL (130-400) Mean Platelet Volume 10.3 fL (7.4-10.4) Neutrophils (%) (Auto) 51.9 % Lymphocytes (%) (Auto) 36.1 % Monocytes (%) (Auto) 8.0 % Eosinophils (%) (Auto) 2.6 % Basophils (%) (Auto) 1.4 % Neutrophils # (Auto) 2.20 K/uL (1.4-6.5) Lymphocytes # (Auto) 1.53 K/uL (1.2-3.4) Monocytes # (Auto) 0.34 K/uL (0.11-0.59) Eosinophils # (Auto) 0.11 K/uL (0-0.5) Basophils # (Auto) 0.06 K/uL (0-0.2) Immature Granulocyte # (Auto) 0.00 K/uL (0.00-0.02) Total Bilirubin 0.5 mg/dl (0.2-1) Aspartate Amino Transf (AST/SGOT) 26 U/L (15-37) Alanine Aminotransferase (ALT/SGPT) 48 U/L (12-78) Alkaline Phosphatase 78 U/L (45-117) Total Protein 6.9 gm/dl (6.4-8.2) Albumin 2.6 gm/dl (3.4-5.0) Globulin 4.3 gm/dl (2.5-4.0) Albumin/Globulin Ratio 0.6 (0.9-2) Cyclic Citrullinated Peptide IgG Ab < 0.40 U/mL (0-4.99) Test 09/21/17 08:58 09/21/17 17:11 Red Blood Count 3.48 M/uL (4.7-6.1) Mean Corpuscular Volume 88.5 fL (80-100) Mean Corpuscular Hemoglobin 28.7 pg (25-34) Mean Corpuscular Hemoglobin Concent 32.5 g/dl (32-36) RDW Standard Deviation 48.7 fL (36.4-46.3) RDW Coefficient of Variation 15.1 % (11.5-14.5) Mean Platelet Volume 10.4 fL (7.4-10.4) Anion Gap 1.0 mmol/L (3-11) Est Creatinine Clear Calc Drug Dose 107.0 ml/min Estimated GFR () 64.1 Estimated GFR (Non- 55.3 BUN/Creatinine Ratio 23.7 (10-20) Calcium Level 8.4 mg/dl (8.5-10.1) Phosphorus Level 3.9 mg/dl (2.5-4.9) Magnesium Level 2.0 mg/dl (1.8-2.4) Iron Level 58 mcg/dl (35-175) Total Iron Binding Capacity 282 mcg/dl (250-450) Hemoglobin A1c Test 09/03/17 05:43 Range/Units Estimated Average Glucose 91 mg/dl Hemoglobin A1c 4.8 4.5-5.6 % Medical Emergencies . Who to Call and When: Medical Emergencies: If at any time you feel your situation is an emergency, please call 911 immediately. . Non-Emergent Contact Non-Emergency issues call your: Primary Care Provider . . "Provider Documentation" section prepared by Db Pimentel. . VTE Core Measure Inpt VTE Proph given/why not?: Treatment not indicated (patient ambulatory, has anemia)
--- NOTE | 2017-09-21 17:39 | Discharge Summary ---
Discharge Summary Date of Service Sep 21, 2017. Discharge Summary Admission Date: Sep 20, 2017 at 00:08 Discharge Date: Sep 21, 2017 Principal Diagnosis: shortness of breath, lower extremity edema, pulmonary edema, anemia Secondary Diagnoses/Problems: Mildly enlarged mediastinal and hilar lymph nodes, Hepatomegaly and hepatic steatosis, Splenomegaly, Obesity, HTN, Smoking Cessation counseling Consultations: Pulmonary, Cardiology, Nephrology Pending Studies/Follow-Up: pending results for IgE, HADLEY, Anti Proteinase 3, Anti Myeloperoxidase, ANCA, Brooke- 1, [employer]E, Hepatitis panel, SPEP, UPEP, iron studies Medication Reconciliation New Medications: Amlodipine Besylate (Amlodipine Besylate) 5 Mg Tab 2.5 MG PO QAM for 30 Days, #15 TAB Continued Medications: Allopurinol (Allopurinol) 100 Mg Tab 200 MG PO DAILY Escitalopram Oxalate (Lexapro) 20 Mg Tab 20 MG PO DAILY, TAB Furosemide (Lasix) 20 Mg Tab 20 MG PO DAILY, TAB Levothyroxine Sodium (Levothyroxine Sodium) 50 Mcg Tab 50 MCG PO DAILY TAKE THIS MEDICATION 30 MINUTES BEFORE BREAKFAST OR ANY OTHER MEDICATIONS Discontinued Medications: Diphenhydramine Hcl (Benadryl) 25 Mg Cap 50 MG PO Q6H PRN for Rash, CAP Doxycycline (Monohydrate) (Doxycycline) 100 Mg Cap 100 MG PO BID, #28 PRESCRIBED 09/06/2017, TAKE DIRECTED Ibuprofen Tab (Advil) 200 Mg Tab 800 MG PO Q8 PRN for Pain or Fever, TAB Admission Information HPI (per Admitting provider): CHIEF COMPLAINT: Shortness of breath for the last 2 days with wheezing. HISTORY OF PRESENT COMPLAINT: He is a 31-year-old obese male with significant past medical history of morbid obesity, hypothyroidism, psoriasis, history of tobacco use disorder and obesity hypoventilation syndrome, gout, depression, has been complaining of increasing shortness of breath for the last 2 days with wheezing. He has been exposed to cold on last Sunday and he has been complaining of these symptoms for the last 2 days. He has been short of breath on minimal exertion. He was given 20 of Lasix regularly but maybe he thinks it has not been working and he does have more swelling of the legs associated with the symptoms, but he does not have any fever, chills or rigors. He denies to have any chest pain, palpitation. No abdominal pain, nausea and/or vomiting. In the Emergency Room, he was hemodynamically stable but initially his saturation was low and I was told that whenever he was trying to walk around his saturation went below 90 and the CAT scan of the chest did show probable interstitial edema/pneumonitis. From that point, he was advised admission. Physical Exam (per Admitting): PHYSICAL EXAMINATION: GENERAL: On examination in the Emergency Room, he was not having any shortness of breath or wheezing following receiving albuterol treatment. VITAL SIGNS: Temperature 36.5, of pulse 67, blood pressure 174/104 and saturation 97% on room air but went down on ambulation. HEENT: Unremarkable. NECK: Supple. No JVD, no bruit. CHEST: Decreased breath sounds but no wheezing and/or crackles. HEART: S1, S2, regular. ABDOMEN: Soft, benign. Difficult to feel for any organ . Bowel sounds present. EXTREMITIES: Bilaterally leg edema, but no evidence of cellulitis. He does have excoriation of the skin secondary to severe reaction secondary to penicillin during the last admission. MUSCULOSKELETAL: No acute arthritis in any joint. CENTRAL NERVOUS SYSTEM: He was alert, awake, oriented x3. Hospital Course 31 year old M presents to the hospital for shortness of breath and lower extremity swelling Patient had abnormal Chest/Thorax CTA 1. There is no evidence of pulmonary embolus in the main, lobar, or segmental pulmonary arteries. 2. The heart is top normal in size. 3. There is diffuse intralobular septal thickening with foci of patchy groundglass change seen throughout both lungs. The appearance is most suggestive of pulmonary edema. An infectious/inflammatory pneumonitis is considered less likely but is the top differential consideration. Clinical correlation will be essential. 4. Small pleural effusions. 5. Mildly enlarged mediastinal and hilar lymph nodes. 6. Hepatomegaly and hepatic steatosis. 7. Splenomegaly. Pulmonary service was consulted for the abnormal CT scan results; as per pulmonary physician the patient does not have interstitial changes and the changes are only groundglass opacities but there is presence of pulmonary edema. Pulmonary service raises concern for renal pulmonary syndrome or connective tissue disease. Labs were sent by pulmonary service to investigate autoimmune marker. (anti-CCP IgG antibodies were not detected in the sample, pending results for IgE, HADLEY, Anti Proteinase 3, Anti Myeloperoxidase, ANCA, Brooke-1, [employer] W[employer]E) With the report of hepatomegaly and splenomegaly, and mildly enlarged lymph nodes, patient also noted to have anemia with Hgb of 10 which is unusual in a young male patient. Iron deficiency labs also to be sent Renal service ordering Hepatitis panel, SPEP, UPEP Patient prefers to follow up with primary care physician while waiting for test results to return 09/27/2017 2:20 PM Jose Gale MD [facility] Patient also had elevations of creatinine above baseline which could be from over use of Ibuprofen vs being on Lasix Patient has follow up appointment made for nephrology 10/05/2017 10:40 AM Marlon Victoria MD Nephrology 2nd Floor, [place] Patient was also evaluated inpatient by cardiology service Dr. Tom Echocardiogram Normal LV chamber size and wall thickness. Normal LV systolic function, EF 65-70%. No segmental left ventricular wall motion abnormalities are noted. Normal diastolic function. No significant valvular pathology "The patient was counseled given the fact that his heart is structurally normal except for some left atrial enlargement, but I do not see any cardiac component to his shortness of breath or to the CT findings. He was counseled that left atrial enlargement does suggest longstanding hypertension and also likely exacerbated by his weight and weight loss has been recommended and I believe he would benefit from outpatient nutrition evaluation. Otherwise, he was told in no uncertain terms that he absolutely must stop smoking. His blood pressure is elevated at this time. So, we will start him on very low dose amlodipine 2.5 mg daily for further blood pressure control that can be up titrated as necessary. Otherwise, he does have borderline pancytopenia and I would recommend further workup there as well, but otherwise no cardiac workup is necessary at this time." At this time, will advise patient to take 20 mg Lasix BID up until follow up appointment with primary care doctor 09/27/2017 2:20 PM Jose Gale MD [facility] to treat for swelling of lower extremities and shortness of breath. Despite these findings of the Chest/Thorax CTA scan, patient has been ambulatory and breathing on room air. Patient should return to the emergency room immediately if worsening shortness of breath. Patient also is asked to avoid Ibuprofen products to prevent kidney damage. Total time spent on discharge = 60 minutes This includes examination of the patient, discharge planning, medication reconciliation, and communication with other providers. Discharge Instructions see above
--- NOTE | 2017-09-21 17:39 | Pulmonology Progress Note ---
Pulmonary Progress Note Date of Service Sep 21, 2017. Attending Dr. Weeks Subjective The patient feels better, after diuresis. He did not have any shortness of breath or chest pain, he did have insomnia due to inability to sleep at night. No pain whatsoever. No increased swelling in his lower extremity. Objective As above. No events overnight. No fever no cough or sputum production. The rest of his review of system was unremarkable. Assessment & Plan #1 continue the treatment for CK D and evaluation for cardiomyopathy. #2 serologies pending to evaluate for the possibility of connective tissue disease given the fact the patient does have skin rash, chronic kidney disease, changes on the CAT scan noted although it appeared to be more of pulmonary edema. #3 obstructive sleep apnea evaluation needed, discussed with the patient regarding home sleep study. He is in agreement. #4 we will follow the patient in our clinic in pulmonary. #5 his demographics were given to our team. #6 we'll follow as an outpatient. Thank you Data Medications: Current Inpatient Medications Medications (Trade) Dose Ordered Sig/Blanca Route Start Time Stop Time Status Last Admin Dose Admin Ioversol (Optiray 320) 100 ml UD PRN IV 09/19/17 21:00 09/23/17 20:59 Acetaminophen (Tylenol Tab) 650 mg Q4H PRN PO 09/20/17 00:15 10/20/17 00:14 09/20/17 19:23 650 MG Ondansetron HCl (Zofran Inj) 4 mg Q6H PRN IV 09/20/17 00:15 10/20/17 00:14 Heparin Sodium (Porcine) (Heparin Sq 5000 Unit/0.5ml) 5,000 unit Q12H SQ 09/20/17 09:00 10/20/17 08:59 09/21/17 09:11 5,000 UNIT Allopurinol (Zyloprim Tab) 200 mg DAILY PO 09/20/17 08:00 10/20/17 08:59 09/21/17 09:07 200 MG Escitalopram Oxalate (Lexapro Tab) 20 mg DAILY PO 09/20/17 08:00 10/20/17 08:59 09/21/17 09:07 20 MG Levothyroxine Sodium (Synthroid Tab) 50 mcg DAILYBB PO 09/20/17 06:30 10/20/17 06:29 09/21/17 05:48 50 MCG Furosemide 40 mg/ Syringe 4 ml @ 4 mls/min DAILY IV 09/20/17 08:00 10/20/17 08:59 09/21/17 09:07 4 MLS/MIN Albuterol Sulfate (Ventolin 0.5% 2.5MG/0.5ML Neb) 2.5 mg Q6R PRN INH 09/20/17 00:15 10/20/17 00:14 Miscellaneous (Iv Fluids Completed) 1 ea PRN PRN N/A 09/20/17 01:00 09/20/18 00:59 Acetaminophen/ Butalbital/ Caffeine (Fioricet Tab) 1 tab Q4H PRN PO 09/20/17 20:15 10/20/17 20:14 Amlodipine Besylate (Norvasc Tab) 2.5 mg QAM PO 09/22/17 08:00 10/22/17 07:59 I & O: 24-Hour Column 09/22/17 08:00 Output Total 1000 ml Balance -1000 ml Vital Signs: Date Time Temp Pulse Resp B/P (MAP) Pulse Ox O2 Delivery O2 Flow Rate FiO2 09/21/17 16:39 Room Air 09/21/17 15:29 36.9 61 19 146/86 (106) 98 Room Air 09/21/17 13:43 59 131/77 (95) 09/21/17 10:00 Room Air 09/21/17 07:51 36.5 52 18 157/68 (97) 94 Room Air 09/21/17 00:30 Room Air 09/20/17 23:07 37.0 60 18 153/80 (104) 100 Room Air 09/20/17 21:47 84 96 Laboratory Results: Last 24 Hours Test 09/21/17 08:58 09/21/17 17:11 White Blood Count 4.55 K/uL Red Blood Count 3.48 M/uL Hemoglobin 10.0 g/dL Hematocrit 30.8 % Mean Corpuscular Volume 88.5 fL Mean Corpuscular Hemoglobin 28.7 pg Mean Corpuscular Hemoglobin Concent 32.5 g/dl RDW Standard Deviation 48.7 fL RDW Coefficient of Variation 15.1 % Platelet Count 173 K/uL Mean Platelet Volume 10.4 fL Sodium Level 141 mmol/L Potassium Level 4.9 mmol/L Chloride Level 114 mmol/L Carbon Dioxide Level 26 mmol/L Anion Gap 1.0 mmol/L Blood Urea Nitrogen 38 mg/dl Creatinine 1.62 mg/dl Est Creatinine Clear Calc Drug Dose 107.0 ml/min Estimated GFR () 64.1 Estimated GFR (Non- 55.3 BUN/Creatinine Ratio 23.7 Random Glucose 81 mg/dl Calcium Level 8.4 mg/dl Phosphorus Level 3.9 mg/dl Magnesium Level 2.0 mg/dl Iron Level 58 mcg/dl Total Iron Binding Capacity 282 mcg/dl
[2017-09-21 17:47] VITALS: BP 146/86; PULSE 61; TEMP 36.9; O2SAT 98
[2017-09-21 18:45] LABS: HEP C IGG 13 YRS+OLDER_RFLX NEG (NEG)
--- NOTE | 2017-09-22 03:18 | NEPHROLOGY CONSULTATION ---
DATE OF CONSULTATION: 09/21/2017 ATTENDING OF RECORD: Dr. Herbert. REASON FOR CONSULTATION: TORSTEN. HISTORY OF PRESENT ILLNESS: This is a 31-year-old male with significant history of morbid obesity who presented with shortness of breath and wheezing. The patient also says he suffers from chronic swelling in the lower extremities. The patient was saying he was recently admitted to this hospital from September 02 to the for swelling in the legs, had a right lower extremity cellulitis, developed a rash that may have been a drug reaction, so stopped the cefepime and continued the daptomycin and finished doxycycline upon discharge for the following 2 weeks. There was a thought that the patient had sleep apnea and was to follow up for sleep medicine as an outpatient. The patient during the september 02 admission had a creatinine of 1.34, 1.16, and 1.10. The patient now has a creatinine of 1.76 on the , 1.82 yesterday morning and 1.62 today. Cardiology was consulted and they did an echo of his heart and has a structurally normal heart, except for some left atrial enlargement, but they did not feel his shortness of breath was related to any issue with his heart and was recommending weight loss and to stop smoking and they started him on low dose amlodipine to help with blood pressure. Pulmonary was consulted as well and they are working up possible serologies for connective tissue disease and was obtaining a polysomnography since they felt the patient needed to be treated for sleep apnea and recommended continued diuresis despite elevated BUN and creatinine. The patient had imaging done, a chest thorax CTA with contrast on the which shows no PE, small pleural effusions, hepatomegaly with fatty liver, splenomegaly as well as diffuse intralobular septal thickening with patchy ground-glass changes seen throughout both lungs, suggestive of pulmonary edema. REVIEW OF SYSTEMS: Rash, resolving from the drug reaction from previous hospitalization. Positive lymphedema. Positive shortness of breath. Positive fatigue. Positive cold intolerance. No fevers or chills. No blurry vision, no dysphagia. No dysuria. No nausea, vomiting. No chest pain. No headaches. All other review of systems otherwise negative. PAST MEDICAL HISTORY: Hypothyroidism, morbid obesity, and psoriasis. PAST SURGICAL HISTORY: The patient denies. FAMILY HISTORY: Significant for kidney disease. SOCIAL HISTORY: Active smoker. No drugs, no alcohol. CURRENT MEDICATIONS: Norvasc 2.5 mg a day, heparin 5000 units subQ q. 12, allopurinol 200 mg a day, Lexapro 20 mg a day, Lasix 40 mg IV daily, and Synthroid 50 mcg daily. PHYSICAL EXAMINATION: VITAL SIGNS: Temperature 36.9, pulse 61, respiratory rate is 19, blood pressure 146/86, satting 98% on room air. GENERAL: A morbidly obese. EYES: No scleral icterus. HEENT: Moist mucous membranes. NECK: Supple. PULMONARY: Clear to auscultation. CARDIAC: Regular rate and rhythm. ABDOMEN: Bowel sounds positive, soft, nontender. EXTREMITIES: +1 edema, nonpitting. NEUROLOGICALLY: Nonfocal. DERMATOLOGIC: Has a resolving rash. LABORATORIES: Sodium was 141, potassium 4.9, chloride is 114, bicarbonate is 26, BUN is 38, creatinine is 1.62, glucose is 81, phosphorus 3.4, mag is 2, and calcium is 8.4. White count is 4.5, H and H 10 and 30, platelet count is 173. REYNALDO is pending. HADLEY, ANCA, MPO serologies are all pending at this point. ASSESSMENT AND PLAN: 1. Acute kidney injury, creatinine of 1.62-1.82 in the setting of diuretics and non-steroidal anti-inflammatory drugs as well as tobacco abuse and underlying hypertension. It appears he has findings of congestive heart failure on CT scan of the chest. He is on Lasix 40 mg IV daily. The patient is interested in going home today and would like to do a workup as an outpatient. He was on 20 mg a day of Lasix as outpt, would recommend increasing that to 40 mg a day to help with his congestive heart failure symptoms; however, the patient is at risk for worsening kidney function. He does have an appointment with Dr. Victoria on October 05 and would recommend keeping that appointment, so we can follow up on patient's kidney function and adjust labs accordingly. 2. Hypertension. The patient is on Norvasc 2.5 mg a day which was started by cardiology to help control blood pressure, goal blood pressure is under 140s/90s, would continue Lasix 40 mg a day as an outpatient in addition to Norvasc 2.5, we can titrate that up as an outpatient. 3. Anemia. The patient does have a significant anemia of unclear etiology, question if he has an element of iron deficiency. 4. Low albumin of 2.6. Would like to check urine for proteinuria as well as checking an SPEP. Given the fact that he has anemia and worsening kidney function, would be curious as well to see what the serologies show and see if there is any blood in the urine. The patient could have several diagnoses other than obesity with hypertension and needs close followup as an outpatient including a renal ultrasound, urine studies, following up on serologic studies and follow up on his blood pressure and kidney function numbers. Appreciate consultation. BLAINE
[2017-09-22] MEDS ORDERED: AMLODIPINE BESYLATE 5 MG TAB PO SCH (08:00)
[2017-09-25 21:36] LABS: ANA SCREEN TC 249X NEGATIVE (NEGATIVE)
== END 2017-09-21 19:25 | disposition home or self-care (01) ==
LOC: C.EDB 17:37 → C.4E 09-20 00:08 → ENRESERV 09-20 00:26
PROVIDERS: ADMIT Internal Medicine; ATTEND Hospitalist
DX: R06.02 Shortness of breath (principal); R60.0 Localized edema; J81.1 Chronic pulmonary edema; D64.9 Anemia, unspecified; R16.0 Hepatomegaly, not elsewhere classified; K76.0 Fatty (change of) liver, not elsewhere classified; R16.1 Splenomegaly, not elsewhere classified; I10 Essential (primary) hypertension; Z71.6 Tobacco abuse counseling; E66.01 Morbid (severe) obesity due to excess calories; E03.9 Hypothyroidism, unspecified; M10.9 Gout, unspecified; F32.9 Major depressive disorder, single episode, unspecified; F17.200 Nicotine dependence, unspecified, uncomplicated; Z79.899 Other long term (current) drug therapy; Z84.1 Family history of disorders of kidney and ureter

== ENCOUNTER 2023-04-19 13:48 | Inpatient (IN) ==
[2023-04-19 14:45] LABS: Appearance Urine Cloudy (Clear); Blood Urine Negative (Negative); Color Urine Orange; Epithelial Cell Urine Auto >30 /lpf (0-5); Glucose Urine UA Negative (Negative); Ketones Urine Trace (Negative); Leukocyte Esterase Urine 1+ (Negative); Nitrite Urine Positive (Negative); Protein Urine 2+ (Negative); Specific Gravity Urine 1.024 (1.000-1.030); Urobilinogen Urine Negative (Negative)
[2023-04-19 14:53] LABS: Bilirubin Urine 3+ (Negative)
[2023-04-19 14:58] LABS: Basophils # (auto) 0.06 K/uL (0.00-0.20); Basophils % (auto) 0.4 %; Eosinophils # (auto) 0.03 K/uL (0.00-0.50); Eosinophils % (auto) 0.2 %; Hematocrit (blood only) 47.7 % (42.0-52.0); Hemoglobin 16.8 g/dl (14.0-18.0); Immature Granulocytes # (auto) 0.12 K/uL (0.01-0.20); Immature Granulocytes % (auto) 0.7 %; Lymphocytes # (auto) 0.82 K/uL (1.20-3.40); Lymphocytes % (auto) 4.9 %; Mean Corpuscular Hemoglobin 31.3 pg (25.0-34.0); Mean Corpuscular Hgb Conc 35.2 g/dL (32.0-36.0); Mean Corpuscular Volume 88.8 fL (80.0-100.0); Mean Platelet Volume 11.7 fL (9.4-12.4); Monocytes # (auto) 1.27 K/uL (0.11-0.59); Monocytes % (auto) 7.7 %; Neutrophils # (auto) 14.27 K/uL (1.40-6.50); Neutrophils % (auto) 86.1 %; Platelet Count 151 K/uL (130-400); RDW Coefficient of Variation 12.9 % (11.5-14.5); Red Blood Count 5.37 M/uL (4.70-6.10); White Blood Count 16.57 K/ul (4.8-10.8)
[2023-04-19 15:15] LABS: Albumin Level 3.8 gm/dl (3.4-5.0); Bilirubin,Total 5.6 mg/dl (0.2-1.0); Calcium 9.2 mg/dl (8.6-10.3); Potassium 3.7 mmol/L (3.5-5.1)
[2023-04-19 15:21] LABS: Albumin Globulin Ratio 1.2 (0.9-2); BUN Creatinine Ratio 15.9 (10-20); Creatinine Clr Calc Pharmacy 106.7 ml/min; Est GFR (African American) 78.8 ml/min; Globulin 3.3 gm/dl (2.5-4.0); Total Protein 7.1 gm/dl (6.0-8.3)
[2023-04-19 15:37] LABS: Bacteria Urine Automated 1+ (Negative); Mucus Urine Present (None Prsent)
--- NOTE | 2023-04-19 16:06 | Emergency Department Note ---
Impression & Plan Acute cholangitis, Pancreatitis, Cholelithiasis, Splenomegaly ED Provider Note NAME: HUI HARDING AGE: 37 SEX: M : 1985 ARRIVES VIA: Walk-In INFORMANT: Patient, ED PROVIDER(S): Ravi Mclean MD CHIEF COMPLAINT: Abdominal pain MEDICAL DECISION MAKING: Patient presents due to concern for abdominal pain in the setting of fevers today as well as last evening with associated left upper quadrant pain the patient did have a recent stent placed. IV was established and blood was obtained. Patient was ordered IV morphine and fluids. Patient is a white count of 16 with a normal H&H and platelet count. Mild hyponatremia 135. Patient's bilirubin of 5.6 and the patient's ALT and alk phos of 137 147 respectively. Lipase of 144. Patient was discharged on Cipro and Flagyl. CT shows moderate splenomegaly with perisplenic ascites as well as possible pancreatitis. Pancreatic stent has migrated distended gallbladder noted. Normal appendix noted. The patient was asked about any sore throat or congestion. I discussed the possibility of mono given his splenomegaly but the patient denies any symptoms. The patient could have cholangitis given the patient's elevated white count reported fever as well as his elevated LFTs. The patient's bilirubin has improved from the time of his admission at [facility]. I did speak with on-call doughnut machine operator Dr. Brown who agreed with plan of care. The patient was ordered meropenem given the patient's penicillin and cephalosporin allergy and the patient is already been on Cipro and Flagyl. I did speak with the on-call hospitalist Dr. Osorio and the patient was admitted to the medicine service Prior /Outside records reviewed: I reviewed a prior discharge summary. This is when the patient had presented to [facility] with a stent emergency department. The patient reportedly been on a prednisone taper for sciatica but was having some improving pain but noticed that he had some jaundice. The emergency department that time the patient had a bilirubin of 11.3. Patient did have an MRCP. Patient subsequently did have an ERCP which showed choledocholithiasis and had biliary duct and pancreatic duct stent placements. Patient was pending cholecystectomy but did not want to pursue this during his inpatient stay and was scheduled for outpatient. Patient was discharged on antibiotics at that time. Differential diagnosis: Postoperative pain, cholangitis, enteritis, PUD, cholecystitis, pancreatitis among others were considered Diagnostics, as interpreted by me: ECG: None Cardiac monitoring: An order was placed for continuous cardiac monitoring. The monitor shows a rate of 77 with sinus rhythm. Patient was placed on pulse oximetry Medical decision rules: None Imaging studies: See below I informally reviewed the patient's CT of the abdomen pelvis which does not show obvious pneumoperitoneum. HPI: Patient presents due to concern for fever that began last evening with a Tmax of 102 today. The patient did take antipyretics at home. The patient tried to eat in the last 2 days and has had pain in the left upper quadrant. Patient denies any for falls or trauma no shortness of breath or chest pain. Patient has not had any reported cough. He did have a recent biliary stent placed for jaundice and gallstones completed at [facility]. Patient denies any dysuria. He has not had any hematuria. The patient states that he had his procedure completed on Sunday. The patient denies any blood in the stool but not had a bowel movement since Sunday and PAST MEDICAL HISTORY: See Below PAST SURGICAL HISTORY: See Below SOCIAL HISTORY: See Below HOME MEDICATIONS: See Below ALLERGIES: See Below VITALS: See Below PHYSICAL EXAMINATION: GENERAL: NAD, non-toxic. EYE EXAM: Scleral or icterus noted PERRL, no anisocoria and EOM's grossly intact w/o pain. OROPHARYNX: Moist mucus membranes, grossly normal dentition. NECK: Supple, no nuchal rigidity, no adenopathy, non-tender. No signs of meningismus. FROM of the neck with good chin to chest and neck extension. No stridor. LUNGS: Clear to auscultation. Normal chest wall mechanics. HEART: NSR, no MRG. ABDOMEN: Abdomen soft, left upper quadrant pain without right upper quadrant or lower abdominal pain, not peritonitic, no masses, no rebound or guarding. BACK: No CVA TTP. SKIN: No rashes and no bruising. UPPER EXTREMITIES: Upper extremities are grossly normal. LOWER EXTREMITIES: Grossly normal, no edema. NEURO EXAM: A&O x3, cranial nerves II-XII grossly intact, normal speech, moves all 4 extremities. Past Med/Surg History Medical History Acute kidney failure "antibiotic induced" 08/2017 admitted [facility], no current problem Anxiety Cellulitis rt leg (hospitalized 08/2017) Congestive heart failure "antibiotic induced", admitted [facility] with acute CHF Depression Gout Hypothyroidism Migraine Osteoarthritis Restless leg syndrome Surgical History History of carpal tunnel release LEFT on 07/09/18: MAC with versed, fentanyl, propofol and ketamine without apparent complications Social History Smoking Status: Current some day smoker Tobacco Type: Cigarettes Cigarettes Per Day: 15 CIG DAILY; Second Hand Exposure: Yes; Do You Dip or Chew Tobacco: No; Tobacco Cessation Education Requested by Patient: No Hx Alcohol Use: No Hx Substance Use: No Preferred Language: Sami Communication Ability: Effective Stone Processing Machine Operator Required: No Beliefs That Will Affect Care: None Current Living Situation: Alone Current Living Situation Comment: 3 CHILDREN Feels Safe at Home: Yes Assistive Devices: None Allergies Allergies Allergy/AdvReac Type Severity Reaction Status Date / Time cefepime Allergy Severe KIDNEY Verified 07/06/20 13:48 PROBLEMS AND CAUSED CHF amoxicillin Allergy Mild Rash Verified 07/06/20 13:48 ketorolac Allergy Mild RASH Verified 07/06/20 13:48 Latex, Natural Rubber Allergy Mild Rash Verified 07/06/20 13:48 Penicillins Allergy Mild Rash Verified 07/06/20 13:48 azithromycin Allergy Unknown Verified 07/06/20 13:48 Home Meds Home Medications Medication Instructions Recorded Confirmed colchicine (gout) 0.6 mg tablet 0.6 mg PO QAM 07/06/20 04/19/23 ciprofloxacin HCl 500 mg tablet 500 mg PO BID 04/19/23 04/19/23 escitalopram oxalate 20 mg tablet 20 mg PO QAM 04/19/23 04/19/23 metronidazole 500 mg tablet 500 mg PO TID 04/19/23 04/19/23 omeprazole 20 mg capsule,delayed 20 mg PO DAILYBB 04/19/23 04/19/23 release tizanidine 4 mg tablet 4 mg PO Q6 PRN Muscle Spasm 04/19/23 04/19/23 Results & Data (ED) Vital Signs Vital Signs - 24 hr 04/19/23 14:02 04/19/23 16:26 04/19/23 17:36 Temperature 37.2 C Temperature Source Temporal Artery Scan Pulse Rate 94 H Pulse Rate [Right Finger] 65 Pulse Rhythm [Right Finger] Regular Pulse Strength [Right Finger] Normal Respiratory Rate 18 18 Respiratory Effort / Characteristics Non-Labored Spontaneous Non-Labored Spontaneous Respiratory Depth Normal Normal Respiratory Pattern Regular Regular Blood Pressure 129/85 Blood Pressure [Left Arm] 115/59 L Blood Pressure Mean 99 Blood Pressure Mean [Left Arm] 77 Blood Pressure Position [Left Arm] Pulse Oximetry 98 95 99 Oxygen Delivery Method Room Air Room Air Room Air Sepsis Recent Fever Within 48 Hours No Sepsis New/Unexplained Change in Mental Status No Sepsis Action Taken by Nursing No Action Required 04/19/23 19:00 Temperature Temperature Source Pulse Rate Pulse Rate [Right Finger] 74 Pulse Rhythm [Right Finger] Regular Pulse Strength [Right Finger] Normal Respiratory Rate 18 Respiratory Effort / Characteristics Non-Labored Spontaneous Respiratory Depth Normal Respiratory Pattern Regular Blood Pressure Blood Pressure [Left Arm] 117/66 Blood Pressure Mean Blood Pressure Mean [Left Arm] 83 Blood Pressure Position [Left Arm] Lying Pulse Oximetry 96 Oxygen Delivery Method Room Air Sepsis Recent Fever Within 48 Hours Sepsis New/Unexplained Change in Mental Status Sepsis Action Taken by [facility] Medications Current Medication List: was personally reviewed by me Laboratory Data Attestation: I reviewed the patient's lab results. 04/19/23 14:19 04/19/23 14:19 Lab Results 04/19/23 04/19/23 04/19/23 Range/Units 14:19 14:19 14:19 WBC 16.57 H (4.8-10.8) K/ul RBC 5.37 (4.70-6.10) M/uL Hgb 16.8 (14.0-18.0) g/dl Hct 47.7 (42.0-52.0) % MCV 88.8 (80.0-100.0) fL MCH 31.3 (25.0-34.0) pg MCHC 35.2 (32.0-36.0) g/dL RDW Std Deviation 42.0 (36.4-46.3) fL RDW Coeff of Ted 12.9 (11.5-14.5) % Plt Count 151 (130-400) K/uL MPV 11.7 (9.4-12.4) fL Immature Gran % (Auto) 0.7 % Neut % (Auto) 86.1 % Lymph % (Auto) 4.9 % Dixon % (Auto) 7.7 % Eos % (Auto) 0.2 % Baso % (Auto) 0.4 % Neut # (Auto) 14.27 H (1.40-6.50) K/uL Lymph # (Auto) 0.82 L (1.20-3.40) K/uL Dixon # (Auto) 1.27 H (0.11-0.59) K/uL Eos # (Auto) 0.03 (0.00-0.50) K/uL Baso # (Auto) 0.06 (0.00-0.20) K/uL Immature Gran # (Auto) 0.12 (0.01-0.20) K/uL Sodium 135 L (136-145) mmol/L Potassium 3.7 (3.5-5.1) mmol/L Chloride 101 (98-107) mmol/L Carbon Dioxide 24 (21-32) mmol/L Anion Gap 10 (3-11) BUN 21 (6-23) mg/dl Creatinine 1.32 (0.6-1.4) mg/dl Est Cr Clr Drug Dosing 106.7 ml/min Est GFR ( Amer) 78.8 ml/min Est GFR (Non-Af Amer) 68.0 ml/min BUN/Creatinine Ratio 15.9 (10-20) Glucose 107 H (70-99(Fasting)) mg/dl Calcium 9.2 (8.6-10.3) mg/dl Total Bilirubin 5.6 H (0.2-1.0) mg/dl AST 36 (13-39) U/L ALT 137 H (7-52) U/L Alkaline Phosphatase 147 H (34-104) U/L Total Protein 7.1 (6.0-8.3) gm/dl Albumin 3.8 (3.4-5.0) gm/dl Globulin 3.3 (2.5-4.0) gm/dl Albumin/Globulin Ratio 1.2 (0.9-2) Lipase 144 H (11-82) U/L Urine Color [place] Urine Appearance Cloudy A (Clear) Urine pH 5.0 (4.5-7.5) Ur Specific [place] 1.024 (1.000-1.030) Urine Protein 2+ H (Negative) Urine Glucose (UA) Negative (Negative) Urine Ketones Trace H (Negative) Urine Blood Negative (Negative) Urine Nitrite Positive A (Negative) Urine Bilirubin 3+ H (Negative) Urine Urobilinogen Negative (Negative) Ur Leukocyte Esterase 1+ H (Negative) Urine WBC (Auto) 5-10 H (0-5) /hpf Urine RBC (Auto) 5-10 H (0-4) /hpf U Hyaline Cast (Auto) 1-5 (0-5) /lpf U Epithel Cells (Auto) >30 H (0-5) /lpf Urine Bacteria (Auto) 1+ H (Negative) Urine Mucus Present A (None Prsent) Administered Medications Sodium Chloride (Nss 1000ml) 1,000 mls @ 150 mls/hr IV .Q6H40M ART Stop: 05/19/23 21:13 Last Admin: 04/19/23 22:13 Dose: 125 mls/hr Documented By: ADB Discontinued Medications Sodium Chloride (Nss 1000ml) 1,000 mls @ 999 mls/hr IV .Q1H1M ONE Stop: 04/19/23 17:11 Last Infusion: 04/19/23 17:25 Dose: 0 mls/hr Documented By: Admin: 04/19/23 16:21 Dose: 999 mls/hr Documented By: JENAE Meropenem 500 mg/ Syringe 10 mls @ 2 mls/min IV NOW STA; Protocol Stop: 04/19/23 17:48 Last Admin: 04/19/23 18:18 Dose: 2 mls/min Documented By: CELINE Ioversol (Ioversol 350 Mg 125ml Prefilled Syringe) 119 ml IV ONCE ONE Stop: 04/19/23 16:34 Last Admin: 04/19/23 16:34 Dose: 119 ml Documented By: MICHAEL Morphine Sulfate (Morphine Sulfate 4 Mg/Ml 1 Ml Carp\\Vial) 4 mg IV NOW STA Stop: 04/19/23 16:12 Last Admin: 04/19/23 16:20 Dose: 4 mg Documented By: JENAE Imaging Data Radiologist's Impression: Abdomen/Pelvis CT 04/19/23 16:[address] WITH IV CONTRAST CT DOSE: 1928.14 mGy.cm HISTORY: Acute left upper quadrant abdominal pain with fever LUQ pain; fever, recent biliary stent placement TECHNIQUE: Multiaxial CT images of the abdomen and pelvis were performed following the IV administration of 119 cc of Optiray, A dose lowering technique was utilized adhering to the principles of ALARA. COMPARISON STUDY: CT chest 09/19/2017 FINDINGS: No acute process of the imaged lower chest. No free air. Spleen is enlarged measuring up to 16 cm. Small amount of perisplenic ascites. Moderate ed marcelino is noted adjacent to the inferomedial spleen tracking along the pericolic gutter and pancreatic tail. No drainable fluid collections. Normal adrenal glands. No pancreatic ductal dilation. Common bile duct stent in place. Distended gallbladder with cholelithiasis and borderline gallbladder wall t hickening. No choledocholithiasis identified. Mildly enlarged periportal/pericaval lymph nodes measuring up to 11 mm are likely reactive. Mildly atrophic left kidney. No hydronephrosis. Mild urinary bladder wall thickening. Prostate is upper limits of normal in size. Subcentimeter periaortic lymph nodes. No bowel obstruction or bowel wall thickening. Moderate fecal retention. Migrated pancreatic duct within the ascending colon. Normal appendix. Small fat filled umbilical hernia. No acute fracture. Degenerative changes of the spine with posterior disc osteophyte complex formations. IMPRESSION: 1. Moderate splenomegaly with nonspecific perisplenic ascites and free fluid tracking along the inferomedial spleen and pancreatic tail. Correlate with lipase level to exclude pancreatitis. 2. Distended gallbladder with cholelithiasis and common bile duct stent. 3. Migrated pancreatic stent within the ascending colon. 4. Normal appendix. 5. Additional findings as above. ACT 112: Negative or not required by law. The above report was generated using voice recognition software. It may contain grammatical, syntax or spelling errors. Electronically signed by: Rosalino Garcia M.D. 04/19/2023 5:20 PM Discharge Plan Visit Data Chief Complaint: Flank Pain Stated Complaint: FLANK, BACK PAIN, GALL STONES ED Provider: Ravi Mclean Discharge Problem: Acute cholangitis, Pancreatitis, Cholelithiasis, Splenomegaly Patient Disposition: Admitted As Inpatient Discharge Instructions Interventions: ED Discharge Assessment Last Done: 04/19/23 20:52
[2023-04-19] MEDS ORDERED: MoRPHine SULFATE 4 MG/ML 1 ML CARP\\VIAL IV STA (16:11)
[2023-04-19] MEDS ORDERED: SODIUM CHLORIDE 0.9% 1000ML 1,000 ML IV ONE (16:11)
[2023-04-19] MEDS ORDERED: IOVERSOL 350 MG 125mL Prefilled Syringe IV ONE (16:33)
--- NOTE | 2023-04-19 17:23 | CT Scan Report ---
ABDOMEN AND PELVIS CT WITH IV CONTRAST CT DOSE: 1928.14 mGy.cm HISTORY: Acute left upper quadrant abdominal pain with fever LUQ pain; fever, recent biliary stent p lacement TECHNIQUE: Multiaxial CT images of the abdomen and pelvis were performed following the IV administrat ion of 119 cc of Optiray, A dose lowering technique was utilized adhering to the principles of ALARA . COMPARISON STUDY: CT chest 09/19/2017 FINDINGS: No acute process of the imaged lower chest. No free air. Spleen is enlarged measuring up to 16 cm. Small amount of perisplenic ascites. Moderate edema is noted adjacent to the inferomedial spl een tracking along the pericolic gutter and pancreatic tail. No drainable fluid collections. Normal a drenal glands. No pancreatic ductal dilation. Common bile duct stent in place. Distended gallbladder with cholelithiasis and borderline gallbladder wall thickening. No choledocholithiasis identified. Mi ldly enlarged periportal/pericaval lymph nodes measuring up to 11 mm are likely reactive. Mildly atrophic left kidney. No hydronephrosis. Mild urinary bladder wall thickening. Prostate is upp er limits of normal in size. Subcentimeter periaortic lymph nodes. No bowel obstruction or bowel wall thickening. Moderate fecal retention. Migrated pancreatic duct within the ascending colon. Normal ap pendix. Small fat filled umbilical hernia. No acute fracture. Degenerative changes of the spine with posterior disc osteophyte complex formations. IMPRESSION: 1. Moderate splenomegaly with nonspecific perisplenic ascites and free fluid tracking along the infer omedial spleen and pancreatic tail. Correlate with lipase level to exclude pancreatitis. 2. Distended gallbladder with cholelithiasis and common bile duct stent. 3. Migrated pancreatic stent within the ascending colon. 4. Normal appendix. 5. Additional findings as above. ACT 112: Negative or not required by law. The above report was generated using voice recognition software. It may contain grammatical, syntax o r spelling errors. Electronically signed by: Rosalino Garcia M.D. 04/19/2023 5:20 PM
[2023-04-19] MEDS ORDERED: MEROPENEM 500 MG in SYRINGE 0 ML IV STA (17:44)
[2023-04-19] MEDS ORDERED: ONDANSETRON INJ 2 MG/ML 2 ML VIAL IV PRN (19:39)
[2023-04-19] MEDS ORDERED: ALUMINUM/MAGNESIUM SUSP 30 ML UDC PO PRN (19:39)
[2023-04-19] MEDS ORDERED: ACETAMINOPHEN 325 MG TAB PO PRN ×2 (19:39→20:02)
[2023-04-19] MEDS ORDERED: POLYETHYLENE (MIRALAX) 17 GM PACK PO PRN (19:39)
--- NOTE | 2023-04-19 20:48 | Surgery Consultation ---
Date of Consultation April 19, 2023 Assessment & Plan (1) Pancreatitis: (2) Cholelithiasis: The patient is being admitted on the hospitalist service. We recommend proceeding as follows: Due to the patient's noted pancreatitis would recommend implementing n.p.o. status. This has been ordered by the hospitalist service Continue IV fluid for hydration as ordered Provide analgesics provide antiemetics It appears that the patient has an element of cholangitis as he reported a fever prior to presentation to the hospital. Patient is currently receiving antibiotics in form of meropenem which should continue Follow serial labs It appears on CT scan that the patient has had some migration of pain of a previously placed pancreatic stent. He also has a common bile duct stent in place but due to his elevated LFTs there is concern that the stent may be occluded or not functioning properly. In light of these facts GI consultation will be warranted and the medical service has requested this. We will await their recommendations. Cholecystectomy will be entertained based on recommendations made by the gastroenterology service as well as clinical improvement/progression of his pancreatitis. Additional recommendations be forthcoming based on his clinical course as unfolds. Supervising Physician Co-Signing Physician Notes Dr Salgado- see A/P above- findings above were discussed with me and I reviewed all studies at the time above. Pt likely has occluded biliary stent and cholangitis. He also has gb full of stones and mild pancreatitis involving distal pancreas causing splenic changes. will follow progress. Will discuss cholecystectomy at some point- [place] or here- likely next week if possible. History of Present Illness Reason for Consultation: Cholecystitis History of Present Illness This is a 37-year-old male who presented to [facility] secondary to abdominal pain. The patient was previously experiencing postprandial abdominal pain and he therefore underwent an ERCP on 04/16/[address] Mellisa Mcgowan at [facility] in [facility]. The patient notes that plans were in place for patient undergo a cholecystectomy. He actually had an appointment scheduled on 05/04/2023 to have this procedure done. He presented to [facility] as he has had 2 days of worsening abdominal pain. He does note that the pain is primary located in the left upper quadrant with radiation to his back. He notes the pain comes and goes and appears to be worse usually approximately 1 hour after eating. He does not note any palliative factors. He specifically denies any nausea or vomiting. He says earlier today he had a fever as high as 102.9. Of note, the patient was discharged following his ERCP with antibiotics in the form of Cipro and Flagyl which she continues to take. He has never had any prior abdominal surgeries. Since arrival to [facility] the patient has had labs and imaging which I independent reviewed. Patient had a CT scan of the abdomen pelvis that showed patient had moderate splenomegaly and some nonspecific perisplenic ascites. There is some free fluid tracking around the inferior medial aspect of the spleen and pancreatic tail felt to potentially represent pancreatitis. The gallbladder was distended with gallstones noted. A common bile duct stent was in place. There is a pancreatic stent with some apparent migration into the ascending colon. The appendix appeared normal on this study. Labs include a CBC her white blood cell count was elevated 16.5. Hemoglobin and hematocrit along with the platelet count were normal. Chemistry profile showed sodium was 135. Potassium, BUN, and creatinine were all normal. The patient's total bilirubin was elevated at 5.6. His AST was normal. ALT was elevated at 137 and alkaline phosphatase was elevated at 147. His lipase was elevated at 144. Urinalysis was positive for nitrites. It was also positive for leukocyte Estrace and had 5-10 white blood cells per high-power field. There is 1+ bacteria noted on the study. At the time of my interview the patient was resting comfortably in bed and he was no distress. Allergies Allergy/AdvReac Type Severity Reaction Status Date / Time cefepime Allergy Severe KIDNEY Verified 07/06/20 13:48 PROBLEMS AND CAUSED CHF amoxicillin Allergy Mild Rash Verified 07/06/20 13:48 ketorolac Allergy Mild RASH Verified 07/06/20 13:48 Latex, Natural Rubber Allergy Mild Rash Verified 07/06/20 13:48 Penicillins Allergy Mild Rash Verified 07/06/20 13:48 azithromycin Allergy Unknown Verified 07/06/20 13:48 Home Medications Medication Instructions Recorded Confirmed Type colchicine (gout) 0.6 mg tablet 0.6 mg PO QAM 07/06/20 04/19/23 History ciprofloxacin HCl 500 mg tablet 500 mg PO BID 04/19/23 04/19/23 History escitalopram oxalate 20 mg tablet 20 mg PO QAM 04/19/23 04/19/23 History metronidazole 500 mg tablet 500 mg PO TID 04/19/23 04/19/23 History omeprazole 20 mg capsule,delayed 20 mg PO DAILYBB 04/19/23 04/19/23 History release tizanidine 4 mg tablet 4 mg PO Q6 PRN Muscle Spasm 04/19/23 04/19/23 History Patient History Medical History Acute kidney failure "antibiotic induced" 08/2017 admitted [facility], no current problem Anxiety Cellulitis rt leg (hospitalized 08/2017) Congestive heart failure "antibiotic induced", admitted [facility] with acute CHF Depression Gout Hypothyroidism Migraine Osteoarthritis Restless leg syndrome Surgical History History of carpal tunnel release LEFT on 07/09/18: MAC with versed, fentanyl, propofol and ketamine without apparent complications Social History Smoking Status: Current some day smoker Tobacco Type: Cigarettes Cigarettes Per Day: 15 CIG DAILY; Second Hand Exposure: Yes; Do You Dip or Chew Tobacco: No; Tobacco Cessation Education Requested by Patient: No Hx Alcohol Use: No Hx Substance Use: No Preferred Language: Belgian Communication Ability: Effective Chef Saucier Required: No Beliefs That Will Affect Care: None Current Living Situation: Alone Current Living Situation Comment: 3 CHILDREN Feels Safe at Home: Yes Assistive Devices: None Review of Systems Constitutional: + fever; no chills Ear, Nose, Mouth, Throat: no hearing loss Respiratory: no cough and no dyspnea Cardiovascular: no chest pain Gastrointestinal: as per Subjective / HPI Genitourinary: no dysuria Musculoskeletal: no back pain Integumentary: no rash Neurologic: no localized weakness Physical Exam Constitutional: WD/WN, vitals as above Eyes: no conjunctival abnormality ENMT: Ears: no hearing impairment and no external ear abnormality Mouth: no oropharynx abnormality Neck: trachea midline Respiratory: normal respiratory effort, lungs clear to auscultation Cardiovascular: Rate/Rhythm: regular rate and regular rhythm Vessels: posterior tibial pulses present and radial pulses present Gastrointestinal (Abdomen): Abdomen is rotund and soft. It is nonrigid and nondistended. The patient did have pain with palpation in the left upper quadrant of his abdomen without rebound tenderness or guarding. He specifically was noted to have no tenderness with palpation in the right upper quadrant. Musculoskeletal: No calf tenderness Skin: no rashes Neurologic: moves all extremities Psychiatric: A+Ox3, euthymic affect Results & Data Vital Signs (Past 12 Hours) Vital Signs Temp Pulse Pulse Resp BP BP Pulse Ox 04/19/23 19:00 74 18 117/66 96 04/19/23 17:36 65 18 115/59 L 99 04/19/23 16:26 95 04/19/23 14:02 37.2 C 94 H 18 129/85 98 O2 Del Method 04/19/23 19:00 Room Air 04/19/23 17:36 Room Air 04/19/23 16:26 Room Air 04/19/23 14:02 Room Air PG Care Time/CCT Total # of Minutes Spent Total Time Spent with Patient: Total time spent is greater than 50% in coordination of care (as documented) at patient's floor/unit and/or counseling patient: Coding Level of Care Code 99005 IN/OBS CONSULT LVL 5,80M Diagnoses Pancreatitis K85.90 Cholelithiasis K80.20
[2023-04-19] MEDS ORDERED: SODIUM CHLORIDE 0.9% 1000ML 1,000 ML IV SCH (21:14)
[2023-04-19] MEDS ORDERED: ACETAMINOPHEN 1,000 MG/100 ML VIAL IV PRN (21:14)
--- NOTE | 2023-04-19 22:57 | History & Physical Report ---
Date of Service April 19, 2023 Assessment & Plan (1) Acute cholangitis: (2) Elevated LFTs: (3) Splenomegaly: (4) Cholelithiasis: (5) Pancreatitis: Plan 37yoM with PMhx significant for GERD, Mood disorder, gout and is s/p pancreatic and biliary stent placement on 04/16/23 presenting with persistent LUQ abdominal pain and fever. Acute Cholangitis Pt had ERCP on 04/16at [facility] with noted choledocholithiasis and complete stone removal. There was stent placement in the ventral pancreatic duct (to decrease the risk of post-ERCP pancreatitis) and in the common bile duct. Pt was discharged with plan to follow up with General Surgery for ch olecystectomy in about 2 weeks, and repeat ERCP in 3 months to remove the stent. Has been having persistent LUQ pain since the procedure, now with fever of 102. WBC elevated >[id number], t bili of 5.6, Liver enzymes elevated, lipase elevated to 144, lipid panel pending for triglyceride level CT abdomen with noted migrated pancreatic duct stent into the ascending colon, distended gallbladder with cholelithiasis and common bile duct stent IV meropenem, IV fluids at 150 (vague concern in the past for CHF though echo from 2019 with normal EF), pain control, GI and general surgery consults Holding home PO meds while NPO Diet: NPO DVT prophylaxis: Holding in the setting of possible procedure. Dispo: Med/Surg CODE STATUS: Full code History of Present Illness Primary Care Provider: Jose Gale MD 37yoM with PMhx significant for GERD, Mood disorder, gout and is s/p pancreatic and biliary stent placement on 04/16/23 presenting with persistent LUQ abdominal pain and fever. Pt states that he has been having persistent LUQ pain and attributed it to recently having his procedure. States the pain persisted and also noted a fever as high as 102 so presented for further evaluation. States that he just wants to be back to normal, and not stuck in a bed all day. Allergies Allergy/AdvReac Type Severity Reaction Status Date / Time cefepime Allergy Severe KIDNEY Verified 07/06/20 13:48 PROBLEMS AND CAUSED CHF amoxicillin Allergy Mild Rash Verified 07/06/20 13:48 ketorolac Allergy Mild RASH Verified 07/06/20 13:48 Latex, Natural Rubber Allergy Mild Rash Verified 07/06/20 13:48 Penicillins Allergy Mild Rash Verified 07/06/20 13:48 azithromycin Allergy Unknown Verified 07/06/20 13:48 Home Medications Medication Instructions Recorded Confirmed Type colchicine (gout) 0.6 mg tablet 0.6 mg PO QAM 07/06/20 04/19/23 History ciprofloxacin HCl 500 mg tablet 500 mg PO BID 04/19/23 04/19/23 History escitalopram oxalate 20 mg tablet 20 mg PO QAM 04/19/23 04/19/23 History metronidazole 500 mg tablet 500 mg PO TID 04/19/23 04/19/23 History omeprazole 20 mg capsule,delayed 20 mg PO DAILYBB 04/19/23 04/19/23 History release tizanidine 4 mg tablet 4 mg PO Q6 PRN Muscle Spasm 04/19/23 04/19/23 History Past Med/Surg History Medical History Acute kidney failure "antibiotic induced" 08/2017 admitted [facility], no current problem Anxiety Cellulitis rt leg (hospitalized 08/2017) Congestive heart failure "antibiotic induced", admitted [facility] with acute CHF Depression Gout Hypothyroidism Migraine Osteoarthritis Restless leg syndrome Surgical History History of carpal tunnel release LEFT on 07/09/18: MAC with versed, fentanyl, propofol and ketamine without apparent complications Social History Smoking Status: Current some day smoker Tobacco Type: Cigarettes Cigarettes Per Day: 15 CIG DAILY; Second Hand Exposure: Yes; Do You Dip or Chew Tobacco: No; Hx Alcohol Use: No Hx Substance Use: No Preferred Language: Maori Communication Ability: Effective Political Scientist Required: No Beliefs That Will Affect Care: None Current Living Situation: Alone Current Living Situation Comment: 3 CHILDREN Feels Safe at Home: Yes Assistive Devices: None Review of Systems Review of Systems: All systems reviewed & are unremarkable except as noted in HPI & below Physical Exam Physical Exam: General: Alert, oriented. Psych: Appropriate mood and affect Neuro: No gross deficits HEENT: NC/AT, scleral icterus noted CV: RRR, Normal s1, s2. No murmurs appreciated Resp: Breath sounds clear bilaterally, no increased effort of breathing. Abdomen: Soft, tender in LUQ Results & Data Results & Data Vital Signs (Past 12 Hours) Vital Signs Temp Pulse Pulse Resp BP BP Pulse Ox 04/19/23 19:00 74 18 117/66 96 04/19/23 17:36 65 18 115/59 L 99 04/19/23 16:26 95 04/19/23 14:02 37.2 C 94 H 18 129/85 98 O2 Del Method 04/19/23 19:00 Room Air 04/19/23 17:36 Room Air 04/19/23 16:26 Room Air 04/19/23 14:02 Room Air (4) Cholelithiasis Cholelithiasis location: other site (5) Pancreatitis Acute pancreatitis complication: unspecified Chronicity: acute Pancreatitis type: unspecified pancreatitis type Qualified Code(s): K85.90 - Acute pancreatitis without necrosis or infection, unspecified
[2023-04-20] MEDS: ACETAMINOPHEN 500 MG TAB PO PRN ×2 (00:50→10:42)
[2023-04-20] MEDS: LACTATED RINGER'S 1,000 ML IV SCH ×4 (00:51→18:37)
[2023-04-20] MEDS: MEROPENEM 500 MG in SYRINGE 0 ML IV SCH ×5 (00:51→23:42)
[2023-04-20] MEDS: HYDROmorphone INJ 0.5 MG/0.5 ML SYR IV PRN ×2 (05:32→11:41)
[2023-04-20] MEDS: PANTOprazole 40 MG TAB PO SCH (06:32)
--- NOTE | 2023-04-20 06:51 | Surgery Progress Note ---
Date of Service April 20, 2023 Assessment & Plan (1) Acute cholangitis: Plan: Patient likely has an occluded common duct stent He probably has distal pancreatitis causing inflammation around the spleen His gallbladder was full of gallstones I have no plan to operate on the patient today however we can proceed as an outpatient next 04/24/2023 Depending on the plan, if he has ERCP today could be discharged tomorrow possibly and readmitted for his surgery I will monitor his progress and plan accordingly Dr. Noland is covering over the weekend Admission and Anticipated Discharge Date Admission Date: April 19, 2023 Subjective Patient awake and alert in no distress Low-grade fever otherwise vitals are stable Mainly complaint of left upper quadrant pain Review of Systems Review of Systems: All systems reviewed & are unremarkable except as noted in HPI & below Physical Exam Physical Exam: Patient is awake and alert His abdomen is soft Results & Data Vital Signs (Past 12 Hours) Vital Signs Temp Pulse Pulse Resp BP BP Pulse Ox 04/20/23 00:50 37.8 C H 04/19/23 23:20 04/19/23 21:00 38.6 C H 75 16 121/76 95 04/19/23 20:52 79 18 126/72 94 04/19/23 19:00 74 18 117/66 96 O2 Del Method 04/20/23 00:50 04/19/23 23:20 Room Air 04/19/23 21:00 Room Air 04/19/23 20:52 Room Air 04/19/23 19:00 Room Air PG Care Time/CCT Total # of Minutes Spent Total Time Spent with Patient: Total time spent is greater than 50% in coordination of care (as documented) at patient's floor/unit and/or counseling patient: Coding Level of Care Code 77817 SUB INP/OBS CARE 09/20MIN Diagnoses Acute cholangitis K83.09
[2023-04-20] MEDS: ESCITALOPRAM OXALATE 20 MG TAB PO SCH (08:17)
[2023-04-20] MEDS ORDERED: INDOMETHACIN 50 MG SUPP PR ONE (08:18)
--- NOTE | 2023-04-20 09:03 | Gastrointestinal Consultation ---
Date of Consultation April 20, 2023 Assessment & Plan (1) Cholelithiasis: (2) Pancreatitis: (3) Elevated LFTs: Patient with history of cholelithiasis, choledocholithiasis status post ERCP with choledocholithiasis removal, biliary and pancreatic stent placements 4 days ago, presented with recurrent left upper quadrant abdominal pain, fevers and noted to have elevated LFTs, specifically increase in his bilirubin. CT abdomen and pelvis showed signs of possible pancreatitis, his lipase is currently mildly elevated at 144. Urine and blood cultures are pending. His pancreatic stent had migrated but biliary stent is still in place. Given his symptoms and increasing LFTs, suspect that he may have cholangitis. - NPO - IVF support w LR - Meropenem IV - Repeat ERCP in OR with Dr. Marico Elizalde today - Trend LFTs - Symptomatic management otherwise - Defer to Surgery on timing for cholecystectomy Supervising Physician Co-Signing Physician Notes I saw and evaluated the patient. He presents with progressive abdominal disco mfort on the left-hand side and worsening jaundice and white blood cell count. He did undergo an ERCP earlier this week with gallstone extraction and biliary stent placement. Physical examination scleral icterus noted Tenderness Was noted in the right abdomen and left abdomen Patient presents several days after recent ERCP now with worsening liver enzymes and white blood cell count. Given this I wonder about stent occlusion possible underlying cholangitis and evidence of post ERCP pancreatitis. Of note the patient did have a difficult initial ERCP.. Given this we will proceed with ERCP today for stent exchange. We discussed risks and benefits to include bleeding infection perforation pain pancreatitis and need for follow-up studies. Recommendations IV hydration ERCP today Continue broad-spectrum antibiotic coverage for total of 10 days History of Present Illness Reason for Consultation: Abd pain, fevers; hx of choledocholithiasis s/p ERCP Requesting Physician: Dr. Maureen Osorio Attending Physician: Dr. Marcio Elizalde History of Present Illness Patient is a 37 years old male who presented yesterday with complaints of left upper quadrant abdominal pain. He was admitted at [facility] and was just discharged 3 days ago. He presented there previously with left upper quadrant abdominal pain and jaundice. Found to have choledocholithiasis and underwent ERCP procedure with choledocholithiasis removal, biliary and pancreatic stents placements. Patient reports that he was feeling fine after his procedure but yesterday started having fevers up to 102 Fahrenheit and left upper quadrant abdominal pain recurs again without radiation. He denies any chest pain, shortness of breath, nausea or vomiting. Upon evaluation here he was noted to have leukocytosis with WBC over 16,000, he is febrile. Urine and blood cultures are pending. LFTs are elevated: Total bilirubin 5.6, AST 36, ALT 137, alkaline phosphatase 147. Lipase 144. CT abdomen pelvis with contrast showed moderate splenomegaly with nonspecific perisplenic ascites, free fluid along the inferomedial spleen and pancreatic tail. There is a distended gallbladder with Cyndi lithiasis and CBD duct stent. This migrated pancreatic stent within the ascending colon. Surgery has been consulted. No immediate surgical plans. He is admitted given his symptoms and also elevation in his bilirubin for suspected cholangitis. Currently n.p.o., on IV lactated Ringer's, antibiotics. Allergies Allergy/AdvReac Type Severity Reaction Status Date / Time cefepime Allergy Severe KIDNEY Verified 07/06/20 13:48 PROBLEMS AND CAUSED CHF amoxicillin Allergy Mild Rash Verified 07/06/20 13:48 ketorolac Allergy Mild RASH Verified 07/06/20 13:48 Latex, Natural Rubber Allergy Mild Rash Verified 07/06/20 13:48 Penicillins Allergy Mild Rash Verified 07/06/20 13:48 azithromycin Allergy Unknown Verified 07/06/20 13:48 Home Medications Medication Instructions Recorded Confirmed Type colchicine (gout) 0.6 mg tablet 0.6 mg PO QAM 07/06/20 04/19/23 History ciprofloxacin HCl 500 mg tablet 500 mg PO BID 04/19/23 04/19/23 History escitalopram oxalate 20 mg tablet 20 mg PO QAM 04/19/23 04/19/23 History metronidazole 500 mg tablet 500 mg PO TID 04/19/23 04/19/23 History omeprazole 20 mg capsule,delayed 20 mg PO DAILYBB 04/19/23 04/19/23 History release tizanidine 4 mg tablet 4 mg PO Q6 PRN Muscle Spasm 04/19/23 04/19/23 History Patient History Medical History Acute kidney failure "antibiotic induced" 08/2017 admitted [facility], no current problem Anxiety Cellulitis rt leg (hospitalized 08/2017) Congestive heart failure "antibiotic induced", admitted [facility] with acute CHF Depression Gout Hypothyroidism Migraine Osteoarthritis Restless leg syndrome Surgical History History of carpal tunnel release LEFT on 07/09/18: MAC with versed, fentanyl, propofol and ketamine without apparent complications Social History Smoking Status: Current some day smoker Tobacco Type: Cigarettes Cigarettes Per Day: 15 CIG DAILY; Second Hand Exposure: Yes; Do You Dip or Chew Tobacco: No; Hx Alcohol Use: No Hx Substance Use: No Preferred Language: Djiboutian Communication Ability: Effective Direct Mail Manager Required: No Beliefs That Will Affect Care: None Current Living Situation: Alone Current Living Situation Comment: 3 CHILDREN Feels Safe at Home: Yes Assistive Devices: None Review of Systems Review of Systems: All systems reviewed & are unremarkable except as noted in HPI & below Physical Exam Constitutional: WD/WN, vitals as above well groomed, cooperative and comfortable Eyes: PERRL, conjunctivae normal, anicteric sclerae ENMT: external ear and nose normal, oropharynx normal Respiratory: normal respiratory effort, lungs clear to auscultation Cardiovascular: RRR, no murmur, no edema Gastrointestinal (Abdomen): Soft, tender to palpation left upper quadrant, bowel sounds hypoactive Skin: no rashes, warm and dry + jaundice Psychiatric: A+Ox3, euthymic affect Lymphatic: no lymphedema Results & Data Vital Signs (Past 12 Hours) Vital Signs Temp Pulse Resp BP Pulse Ox O2 Del Method 04/20/23 07:51 36.7 C 70 16 110/73 95 Room Air 04/20/23 00:50 37.8 C H 04/19/23 23:20 Room Air 04/19/23 21:00 38.6 C H 75 16 121/76 95 Room Air Diagnostic Findings ABDOMEN AND PELVIS CT WITH IV CONTRAST CT DOSE: 1928.14 mGy.cm HISTORY: Acute left upper quadrant abdominal pain with fever LUQ pain; fever, recent biliary stent placement TECHNIQUE: Multiaxial CT images of the abdomen and pelvis were performed following the IV administration of 119 cc of Optiray, A dose lowering technique was utilized adhering to the principles of ALARA. COMPARISON STUDY: CT chest 09/19/2017 FINDINGS: No acute process of the imaged lower chest. No free air. Spleen is enlarged measuring up to 16 cm. Small amount of perisplenic ascites. Moderate edema is noted adjacent to the inferomedial spleen tracking along the pericolic gutter and pancreatic tail. No drainable fluid collections. Normal adrenal glands. No pancreatic ductal dilation. Common bile duct stent in place. Distended gallbladder with cholelithiasis and borderline gallbladder wall thickening. No choledocholithiasis identified. Mildly enlarged peripo rtal/pericaval lymph nodes measuring up to 11 mm are likely reactive. Mildly atrophic left kidney. No hydronephrosis. Mild urinary bladder wall thickening. Prostate is upper limits of normal in size. Subcentimeter periaortic lymph nodes. No bowel obstruction or bowel wall thickening. Moderate fecal retention. Migrated pancreatic duct within the ascending colon. Normal appendix. Small fat filled umbilical hernia. No acute fracture. Degenerative changes of the spine with posterior disc osteophyte complex formations. IMPRESSION: 1. Moderate splenomegaly with nonspecific perisplenic ascites and free fluid tracking along the inferomedial spleen and pancreatic tail. Correlate with lipase level to exclude pancreatitis. 2. Distended gallbladder with cholelithiasis and common bile duct stent. 3. Migrated pancreatic stent within the ascending colon. 4. Normal appendix. 5. Additional findings as above. (1) Cholelithiasis Cholelithiasis location: other site (2) Pancreatitis Acute pancreatitis complication: unspecified Chronicity: acute Pancreatitis type: unspecified pancreatitis type Qualified Code(s): K85.90 - Acute pancreatitis without necrosis or infection, unspecified
[2023-04-20 09:45] LABS: Basophils # (auto) 0.02 K/uL (0.00-0.20); Basophils % (auto) 0.2 %; Eosinophils % (auto) 0.9 %; Hematocrit (blood only) 45.3 % (42.0-52.0); Hemoglobin 15.4 g/dl (14.0-18.0); Immature Granulocytes # (auto) 0.05 K/uL (0.01-0.20); Immature Granulocytes % (auto) 0.4 %; Lymphocytes # (auto) 0.94 K/uL (1.20-3.40); Lymphocytes % (auto) 8.1 %; Mean Corpuscular Volume 91.1 fL (80.0-100.0); Mean Platelet Volume 11.3 fL (9.4-12.4); Monocytes % (auto) 7.8 %; Neutrophils % (auto) 82.6 %; Platelet Count 128 K/uL (130-400); RDW Coefficient of Variation 12.8 % (11.5-14.5); RDW Standard Deviation 42.5 fL (36.4-46.3); Red Blood Count 4.97 M/uL (4.70-6.10); White Blood Count 11.61 K/ul (4.8-10.8)
[2023-04-20 10:00] LABS: Albumin Globulin Ratio 1.2 (0.9-2); Albumin Level 3.5 gm/dl (3.4-5.0); BUN Creatinine Ratio 17.5 (10-20); Calcium 9.4 mg/dl (8.6-10.3); Chol HDL Ratio 5.7 (0-5); Creatinine Clr Calc Pharmacy 136.7 ml/min; Est GFR (African American) 106.3 ml/min; Est GFR (Non-African American) 91.7 ml/min; Potassium 4.1 mmol/L (3.5-5.1); Total Protein 6.5 gm/dl (6.0-8.3)
--- NOTE | 2023-04-20 14:15 | Anesthesiology Consultation ---
Date of Service April 20, 2023 History Surgery Operation Date: 04/20/23 07:00 Proposed Procedures p Endoscopic Retrograde Cholangiopancreato - Marten Hui Elizalde, Height/Weight Height: 5 ft 11 in Weight: 135.6 kg Allergies Allergy/AdvReac Type Severity Reaction Status Date / Time cefepime Allergy Severe KIDNEY Verified 07/06/20 13:48 PROBLEMS AND CAUSED CHF amoxicillin Allergy Mild Rash Verified 07/06/20 13:48 ketorolac Allergy Mild RASH Verified 07/06/20 13:48 Latex, Natural Rubber Allergy Mild Rash Verified 07/06/20 13:48 Penicillins Allergy Mild Rash Verified 07/06/20 13:48 azithromycin Allergy Unknown Verified 07/06/20 13:48 Medications Home Medications Medication Instructions Recorded Confirmed Last Taken colchicine (gout) 0.6 mg tablet 0.6 mg PO QAM 07/06/20 04/19/23 Unknown ciprofloxacin HCl 500 mg tablet 500 mg PO BID 04/19/23 04/19/23 Unknown escitalopram oxalate 20 mg tablet 20 mg PO QAM 04/19/23 04/19/23 Unknown metronidazole 500 mg tablet 500 mg PO TID 04/19/23 04/19/23 Unknown omeprazole 20 mg capsule,delayed 20 mg PO DAILYBB 04/19/23 04/19/23 Unknown release tizanidine 4 mg tablet 4 mg PO Q6 PRN Muscle Spasm 04/19/23 04/19/23 Unknown Active Medications Generic Name Dose Route Start Last Admin Trade Name Freq PRN Reason Stop Dose Admin Acetaminophen 500 mg 04/19/23 23:26 04/20/23 10:42 Acetaminophen 500 Mg Tab PO 05/19/23 23:25 500 mg Q6H PRN Administration Pain/Fever Escitalopram Oxalate 20 mg 04/20/23 09:00 04/20/23 08:17 Escitalopram Oxalate 20 Mg Tab PO 05/20/23 08:59 20 mg QAM ART Administration Hydromorphone HCl 0.5 mg 04/19/23 21:14 04/20/23 11:41 Hydromorphone Inj 0.5 Mg/0.5 Ml Syr IV 05/03/23 21:13 0.5 mg Q6H PRN Administration Severe Pain (Scale 7, 8, 9,10) Meropenem 500 mg/ Syringe 10 mls @ 2 mls/min 04/20/23 00:00 04/20/23 13:10 IV 04/30/23 00:00 2 mls/min Q6H ART Administration Protocol Lactated Ringer's 1,000 mls @ 200 mls/hr 04/19/23 23:30 04/20/23 13:21 Lr IV 05/19/23 23:29 0 mls/hr .Q5H ART Infusion Pantoprazole Sodium 40 mg 04/20/23 06:30 04/20/23 06:32 Pantoprazole 40 Mg Tab PO 05/20/23 06:29 40 mg DAILYBB ART Administration NPO Date Last Intake of Fluids: 04/19/23 Time Last Intake of Fluids: 12:00 Date Last Intake of Solids: 04/18/23 Past Medical History Medical History Acute kidney failure "antibiotic induced" 08/2017 admitted [facility], no current problem Anxiety Cellulitis rt leg (hospitalized 08/2017) Congestive heart failure "antibiotic induced", admitted [facility] with acute CHF Depression Gout Hypothyroidism Migraine Osteoarthritis Restless leg syndrome Past Surgical History Surgical History History of carpal tunnel release LEFT on 07/09/18: MAC with versed, fentanyl, propofol and ketamine without apparent complications Social History Smoking Status: Current some day smoker tobacco type: cigarettes Smoking cigarettes per day: 15 CIG DAILY Do You Dip or Chew Tobacco: No Hx Alcohol Use: No Hx Substance Use: No substance use type: does not use Physical Exam Vital Signs Last Vital Signs Temp 38.3 C H 04/20/23 14:05 Pulse 72 04/20/23 14:05 Resp 20 04/20/23 14:05 BP 130/81 04/20/23 14:05 Pulse Ox 93 04/20/23 14:05 O2 Del Method Room Air 04/20/23 14:05 Constitutional + morbidly obese ENMT Mouth: no TMJ abnormality Thyromental Distance: > or= 3.5 Finger Breadths Mallampati Class: II Neck normal visual inspection and trachea midline; neck extension not limited Respiratory normal respiratory effort Auscultation: lungs clear to auscultation bilaterally Cardiovascular Rate/Rhythm: regular rate and regular rhythm Heart Sounds: no murmur Musculoskeletal Spine: normal cervical ROM Extremities: full ROM of extremities Neurologic moves all extremities Psychiatric Orientation: alert and oriented x 3 Testing Laboratory Results 04/20/23 09:09 04/20/23 09:09 Urine Color [place] 04/19/23 14:19 Urine Appearance Cloudy (Clear) A 04/19/23 14:19 Urine pH 5.0 (4.5-7.5) 04/19/23 14:19 Ur Specific [place] 1.024 (1.000-1.030) 04/19/23 14:19 Urine Protein 2+ (Negative) H 04/19/23 14:19 Urine Glucose (UA) Negative (Negative) 04/19/23 14:19 Urine Ketones Trace (Negative) H 04/19/23 14:19 Urine Nitrite Positive (Negative) A 04/19/23 14:19 Ur Leukocyte Esterase 1+ (Negative) H 04/19/23 14:19 Urine WBC (Auto) 5-10 /hpf (0-5) H 04/19/23 14:19 Urine RBC (Auto) 5-10 /hpf (0-4) H 04/19/23 14:19 U Hyaline Cast (Auto) 1-5 /lpf (0-5) 04/19/23 14:19 U Epithel Cells (Auto) >30 /lpf (0-5) H 04/19/23 14:19 Urine Bacteria (Auto) 1+ (Negative) H 04/19/23 14:19 04/19/23 14:19 Urine Culture - Preliminary Urine,Clean Catch No growth - Less than 1,000 colonies/mL, Final report to follow.
[2023-04-20] MEDS ORDERED: MIDAZOLAM HCL 1 MG/ML 2ML VIAL ONE (14:21)
[2023-04-20] MEDS ORDERED: fentaNYL citrate PF 100 MCG/2 ML VIAL ONE (14:21)
[2023-04-20] MEDS ORDERED: HYDROmorphone INJ 1 MG/ML SYRINGE IV PRN ×2 (14:23→21:58)
[2023-04-20] MEDS ORDERED: fentaNYL citrate PF 100 MCG/2 ML VIAL IV PRN (14:23)
[2023-04-20] MEDS ORDERED: ATROPINE SULFATE 0.1 MG/ML 10ML SYR IV PRN (14:23)
[2023-04-20] MEDS ORDERED: ePHEDrine sulfate 50 MG/ML AMP IV PRN (14:23)
[2023-04-20] MEDS ORDERED: SUGAMMADEX SODIUM 200 MG/2 ML VIAL IV ONE (14:51)
--- NOTE | 2023-04-20 15:03 | GI REPORT ---
Patient Name: Lawson Aguayo Procedure Date: 04/20/2023 2:20 PM Date of : 1985 Admit Type: Inpatient Age: 37 Gender: Male Attending MD: Marcio Elizalde DO, Procedure: ERCP Providers: Marcio Elizalde DO Referring MD: Maureen Osorio Md, Agapito Goodrich MD Indications: Suspected ascending cholangitis, Jaundice, Stent change Medicines: General Anesthesia Complications: No immediate complications. Estimated blood loss: Minimal. Estimated Blood Loss: Estimated blood loss was minimal. Procedure: Pre-Anesthesia Assessment: - Prior to the procedure, a History and Physical was performed, and patient medications, allergies and sensitivities were reviewed. The patient's tolerance of previous anesthesia was reviewed. - The risks and benefits of the procedure and the sedation options and risks were discussed with the patient. All questions were answered and informed consent was obtained. - Patient identification and proposed procedure were verified prior to the procedure by the physician, the nurse and the glue reel operator. The procedure was verified in the procedure room. - Pre-procedure physical examination revealed no contraindications to sedation. - ASA Grade Assessment: III - A patient with severe systemic disease. - After reviewing the risks and benefits, the patient was deemed in satisfactory condition to undergo the procedure. - The anesthesia plan was to use general anesthesia. - Immediately prior to administration of medications, the patient was re-assessed for adequacy to receive sedatives. - The heart rate, respiratory rate, oxygen saturations, blood pressure, adequacy of pulmonary ventilation, and response to care were monitored throughout the procedure. - The physical status of the patient was re-assessed after the procedure. After obtaining informed consent, the scope was passed under direct vision. Throughout the procedure, the patient's blood pressure, pulse, and oxygen saturations were monitored continuously. The Duodenoscope was introduced through the mouth, and advanced to the duodenum and used to inject contrast into the bile duct. The ERCP was accomplished without difficulty. The patient tolerated the procedure well. Findings: A biliary stent was visible on the drophammer operator film. The esophagus was successfully intubated under direct vision without detailed examination of the pharynx, larynx, and associated structures, and upper GI tract. The upper GI tract was grossly normal. One biliary stent originating in the biliary tree was emerging from the major papilla. A biliary sphincterotomy had been performed. The sphincterotomy appeared open. One stent was removed from the biliary tree using a snare. The bile duct was deeply cannulated with the 11.5 mm balloon and guidewire. Contrast was injected. I personally interpreted the bile duct images. Contrast extended to the hepatic ducts. The gallbladder contained multiple filling defect(s) thought to be a stones. The bile duct was approximately 5 to 6 mm in diameter. To discover objects, the biliary tree was swept with an 11.5 mm balloon starting at the bifurcation. Pus was swept from the duct. One 10 Fr by 8 cm biliary stent with a single external flap and a single internal flap was placed 8 cm into the common bile duct. Bile flowed through the stent. The stent was in good position. The endoscope was withdrawn from the patient. Impression: - One stent from the biliary tree was seen in the major papilla. - Prior biliary sphincterotomy appeared open. - Numerous other stones were noted in the Gallbladder with a patent cystic duct.. - One stent was removed from the biliary tree. - The biliary tree was swept and pus was found. - One new biliary stent was placed into the common bile duct. Recommendation: - Clear liquid diet today. - Use broad spectrum antibiotics for 10 days. - Repeat ERCP in 6 weeks to remove stent. Marcio Elizalde D.O. Marcio Elizalde, 04/20/2023 3:02:37 PM This report has been signed electronically. Note Initiated On: 04/20/2023 2:20 PM Number of Addenda: 0 I attest to the content of the Intraoperative Record and orders documented therein, exceptions below {[id number]}
--- NOTE | 2023-04-20 15:03 | Post Operative Brief Note ---
Immediate Post Op Note v1 Date of Surgery April 20, 2023 Pre & Post Diagnosis Operation Date: 04/20/23 07:00 Pre-Op Diagnosis: ABDOMINAL PAIN Post-Op Diagnosis: cholangitis I identified the patient and participated in the time-out.: Yes Procedure Operation Date: 04/20/23 07:00 Actual Procedures p Endoscopic Retrograde Cholangiopancreato with stent exchange - Marcio Elizalde DO Surgeon Marcio Elizalde DO Tool Turret Lathe Set Up Operator none Estimated Blood Loss 0 Findings Consistent with Post-Op Diagnosis
--- NOTE | 2023-04-20 15:06 | Communication Note ---
Date of Service: April 20, 2023 Underwent ERCP today for suspected cholangitis. The patient went removal of his existing biliary stent and was replaced with a 10 [place] 8 cm stent. The bile duct was swept using an 11.5 [place]ori millimeter balloon notable for evidence of pus. In addition, the previously placed pancreatic stent had migrated as noted on the patient's CT on admission. Recommendations 1-Clear liquid diet today 2-Continue antibiotic coverage for total of 10 days 3-Continue IV hydration for treatment of post ERCP pancreatitis 4-Cholecystectomy per general surgery
--- NOTE | 2023-04-20 15:08 | Anesthesiology Progress Note ---
Date of Service April 20, 2023 Anesthesia Post Procedure Vital Signs Vital Signs: Temp Pulse Pulse Pulse Resp BP BP 04/20/23 14:05 38.3 C H 72 20 130/81 04/20/23 10:42 38.3 C H 04/20/23 07:51 36.7 C 70 16 110/73 04/20/23 00:50 37.8 C H 04/19/23 23:20 04/19/23 21:00 38.6 C H 75 16 121/76 04/19/23 20:52 79 18 126/72 04/19/23 19:00 74 18 117/66 04/19/23 17:36 65 18 115/59 L 04/19/23 16:26 Pulse Ox O2 Del Method 04/20/23 14:05 93 Room Air 04/20/23 10:42 04/20/23 07:51 95 Room Air 04/20/23 00:50 04/19/23 23:20 Room Air 04/19/23 21:00 95 Room Air 04/19/23 20:52 94 Room Air 04/19/23 19:00 96 Room Air 04/19/23 17:36 99 Room Air 04/19/23 16:26 95 Room Air Pain Intensity Left Abdomen: Pain Intensity: 7 Transfer of Care Handoff Completed per policy Notes Mental Status: alert / awake / arousable Patient Amnestic to Procedure: Yes Nausea / Vomiting: adequately controlled Pain: adequately controlled Airway Patency, RR, SpO2: stable & adequate BP & HR: stable & adequate Hydration State: stable & adequate Anesthetic Complications: no major complications apparent and Pt Satisfied with anesthetic care
--- NOTE | 2023-04-20 15:41 | Hospitalist Progress Note ---
Date of Service April 20, 2023 Assessment & Plan (1) Acute cholangitis: (2) Elevated LFTs: (3) Splenomegaly: (4) Cholelithiasis: (5) Pancreatitis: Plan 37yoM with PMhx significant for GERD, Mood disorder, gout and is s/p pancreatic and biliary stent placement on 04/16/23 presenting with persistent LUQ abdominal pain and fever. Acute Cholangitis Pt had ERCP on 04/16at [facility] with noted choledocholithiasis and complete stone removal. There was stent placement in the ventral pancreatic duct (to decrease the risk of post-ERCP pancreatitis) and in the common bile duct. Pt was discharged with plan to follow up with General Surgery for ch olecystectomy in about 2 weeks, and repeat ERCP in 3 months to remove the stent. Has been having persistent LUQ pain since the procedure, now with fever of 102. WBC elevated >91280, t bili of 5.6, Liver enzymes elevated, lipase elevated to 144, lipid panel with normal triglyceride level CT abdomen with noted migrated pancreatic duct stent into the ascending colon, distended gallbladder with cholelithiasis and common bile duct stent IV meropenem, IV fluids at 150 (vague concern in the past for CHF though echo from 2019 with normal EF), pain control GI and general surgery consults- repeat ERCP while hospitalized, General surgery following for anticipated cholecystectomy Holding home PO meds while NPO Diet: NPO before procedure DVT prophylaxis: Holding in the setting of possible procedure. Dispo: Med/Surg CODE STATUS: Full code Admission and Anticipated Discharge Date Admission Date: April 19, 2023 Subjective Pt seen before procedure. States that he felt the same. Pain in LUQ now going to the back. States he was told he would have the procedure soon. Review of Systems Review of Systems: All systems reviewed & are unremarkable except as noted in Subjective Physical Exam Physical Exam: General: Alert, oriented. Psych: Appropriate mood and affect Neuro: No gross deficits HEENT: NC/AT, scleral icterus noted CV: RRR, Normal s1, s2. No murmurs appreciated Resp: Breath sounds clear bilaterally, no increased effort of breathing. Abdomen: Soft, tender in LUQ Results & Data Results & Data Vital Signs (Past 12 Hours) Vital Signs Temp Pulse Pulse Resp BP Pulse Ox O2 Del Method 04/20/23 15:30 37.0 C 84 23 139/91 93 Nasal Cannula 08/25/23 15:20 81 21 143/90 H 92 Nasal Cannula 04/20/23 15:10 80 20 159/90 H 97 Oxymask 04/20/23 15:00 36.6 C 81 27 H 155/102 H 97 Oxymask 04/20/23 14:05 38.3 C H 72 20 130/81 93 Room Air 04/20/23 10:42 38.3 C H 04/20/23 07:51 36.7 C 70 16 110/73 95 Room Air O2 Flow Rate 04/20/23 15:30 2 04/20/23 15:20 2 04/20/23 15:10 5 04/20/23 15:00 9 04/20/23 14:05 04/20/23 10:42 04/20/23 07:51 (4) Cholelithiasis Cholelithiasis location: other site (5) Pancreatitis Acute pancreatitis complication: unspecified Chronicity: acute Pancreatitis type: unspecified pancreatitis type Qualified Code(s): K85.90 - Acute pancreatitis without necrosis or infection, unspecified
--- NOTE | 2023-04-20 15:42 | Fluoroscopy Report ---
[place] ERCP biliary ductal CLINICAL HISTORY: for ercp COMPARISON STUDY: CT of the abdomen and pelvis April 19, 2023. FLUOROSCOPY TIME: 16 seconds. Ka, r: 10.472 mGy FLUOROSCOPIC IMAGES: 10 FINDINGS: Fluoroscopy was provided during ERCP. Initial image demonstrates a common bile duct stent w hich was removed. Common bile duct was cannulated. Balloon sweep through the common bile duct was per formed. Filling defects within the gallbladder represent gallstones. Filling defects within the commo n bile duct could reflect gas bubbles or calculi. Final image demonstrates placement of the common bi le duct stent. IMPRESSION: Fluoroscopy provided during ERCP with common bile duct stent exchange. ACT 112: Negative or not required by law. Electronically signed by: Mio Gomez M.D. 04/20/2023 3:40 PM
[2023-04-20] MEDS ORDERED: oxyCODONE HCL IR 5 MG TAB (IMMEDIATE RELEASE) PO PRN (21:57)
[2023-04-20] MEDS ORDERED: MELATONIN 3 MG TAB PO PRN (21:57)
[2023-04-21] MEDS: LACTATED RINGER'S 1,000 ML IV SCH ×4 (00:09→13:52)
[2023-04-21] MEDS: MEROPENEM 500 MG in SYRINGE 0 ML IV SCH ×2 (05:47→12:17)
[2023-04-21 06:37] LABS: Basophils # (auto) 0.01 K/uL (0.00-0.20); Basophils % (auto) 0.1 %; Hematocrit (blood only) 41.6 % (42.0-52.0); Hemoglobin 14.6 g/dl (14.0-18.0); Immature Granulocytes # (auto) 0.08 K/uL (0.01-0.20); Immature Granulocytes % (auto) 0.7 %; Lymphocytes # (auto) 0.75 K/uL (1.20-3.40); Lymphocytes % (auto) 6.1 %; Mean Corpuscular Hemoglobin 31.1 pg (25.0-34.0); Mean Corpuscular Hgb Conc 35.1 g/dL (32.0-36.0); Mean Corpuscular Volume 88.5 fL (80.0-100.0); Mean Platelet Volume 11.9 fL (9.4-12.4); Monocytes # (auto) 0.82 K/uL (0.11-0.59); Monocytes % (auto) 6.7 %; Neutrophils % (auto) 86.4 %; Platelet Count 147 K/uL (130-400); RDW Standard Deviation 39.1 fL (36.4-46.3); White Blood Count 12.26 K/ul (4.8-10.8)
[2023-04-21 07:06] LABS: Albumin Globulin Ratio 1.1 (0.9-2); Albumin Level 3.1 gm/dl (3.4-5.0); BUN Creatinine Ratio 19.2 (10-20); Bilirubin,Total 2.3 mg/dl (0.2-1.0); Calcium 9.1 mg/dl (8.6-10.3); Creatinine Clr Calc Pharmacy 180.6 ml/min; Est GFR (African American) 132.7 ml/min; Est GFR (Non-African American) 114.5 ml/min; Globulin 2.9 gm/dl (2.5-4.0); Potassium 4.4 mmol/L (3.5-5.1)
--- NOTE | 2023-04-21 07:54 | Hospitalist Progress Note ---
Date of Service April 21, 2023 Assessment & Plan (1) Acute cholangitis: (2) Elevated LFTs: (3) Splenomegaly: (4) Cholelithiasis: (5) Pancreatitis: Plan 37yoM with PMhx significant for GERD, Mood disorder, gout and is s/p pancreatic and biliary stent placement on 04/16/23 presenting with persistent LUQ abdominal pain and fever. Acute Cholangitis Pt had ERCP on 04/16at [facility] with noted choledocholithiasis and complete stone removal. There was stent placement in the ventral pancreatic duct (to decrease the risk of post-ERCP pancreatitis) and in the common bile duct. Pt was discharged with plan to follow up with General Surgery for ch olecystectomy in about 2 weeks, and repeat ERCP in 3 months to remove the stent. Had been having persistent LUQ pain since the procedure, presented with fever of 102. WBC elevated >55353, t bili of 5.6, Liver enzymes elevated, lipase elevated to 144, lipid panel with normal triglyceride level CT abdomen with noted migrated pancreatic duct stent into the ascending colon, distended gallbladder with cholelithiasis and common bile duct stent IV meropenem, IV fluids at 150 (vague concern in the past for CHF though echo from 2019 with normal EF), pain control GI and general surgery consults- repeat ERCP while hospitalized, General surgery following for anticipated cholecystectomy Holding home PO meds while NPO Diet: NPO before procedure DVT prophylaxis: Holding in the setting of possible procedure. Dispo: Med/Surg CODE STATUS: Full code Admission and Anticipated Discharge Date Admission Date: April 19, 2023 Physical Exam Physical Exam: General: Alert, oriented. Psych: Appropriate mood and affect Neuro: No gross deficits HEENT: NC/AT, scleral icterus noted CV: RRR, Normal s1, s2. No murmurs appreciated Resp: Breath sounds clear bilaterally, no increased effort of breathing. Abdomen: Soft, tender in LUQ Results & Data Results & Data Vital Signs (Past 12 Hours) Vital Signs Temp Pulse Resp BP Pulse Ox O2 Del Method 04/20/23 23:31 36.8 C 74 18 119/70 96 Room Air (4) Cholelithiasis Cholelithiasis location: other site (5) Pancreatitis Acute pancreatitis complication: unspecified Chronicity: acute Pancreatitis type: unspecified pancreatitis type Qualified Code(s): K85.90 - Acute pancreatitis without necrosis or infection, unspecified
[2023-04-21] MEDS: PANTOprazole 40 MG TAB PO SCH (08:22)
[2023-04-21] MEDS: ESCITALOPRAM OXALATE 20 MG TAB PO SCH (08:22)
--- NOTE | 2023-04-21 11:59 | Surgery Progress Note ---
Date of Service April 21, 2023 Assessment & Plan (1) Acute cholangitis: Plan: s/p stent change with improvement in symptoms and lab tests. Ok to discharge from surgical standpoint. Scheduled for gallbladder removal with Dr. Salgado on Sunday. Admission and Anticipated Discharge Date Admission Date: April 19, 2023 Subjective No abdominal pain. Wondering when he can go home. Getting a cardiac echo. No nausea. Physical Exam Constitutional: WD/WN, vitals as above Gastrointestinal (Abdomen): normal bowel sounds, soft, nontender, no hepatosplenomegaly Neurologic: awake; no focal motor deficits Results & Data Vital Signs (Past 12 Hours) Vital Signs Pulse Resp BP Pulse Ox O2 Del Method 04/21/23 08:37 52 L 18 109/71 96 Room Air 04/21/23 07:58 Room Air Laboratory Results Abnormal lab results 04/21/23 04/21/23 Range/Units 05:53 05:53 WBC 12.26 H (4.8-10.8) K/ul Hct 41.6 L (42.0-52.0) % Neut # (Auto) 10.60 H (1.40-6.50) K/uL Lymph # (Auto) 0.75 L (1.20-3.40) K/uL [place] # (Auto) 0.82 H (0.11-0.59) K/uL Glucose 126 H (70-99(Fasting)) mg/dl Total Bilirubin 2.3 H (0.2-1.0) mg/dl ALT 58 H (7-52) U/L Albumin 3.1 L (3.4-5.0) gm/dl
--- NOTE | 2023-04-21 14:54 | Discharge Summary ---
Discharge Summary Date of Service April 21, 2023 Notes For Next Care Provider Ensure completion of antibiotics Ensure follow up with General Surgery and Gastroenterology Medication Changes From Visit Discharged with 8 days of ciprofloxacin 500mg BID and metronidazole 500mg TID Admission HPI Per Admitting Provider 37yoM with PMhx significant for GERD, Mood disorder, gout and is s/p pancreatic and biliary stent placement on 04/16/23 presenting with persistent LUQ abdominal pain and fever. Pt states that he has been having persistent LUQ pain and attributed it to recently having his procedure. States the pain persisted and also noted a fever as high as 102 so presented for further evaluation. States that he just wants to be back to normal, and not stuck in a bed all day. Pt had ERCP on 04/16 at [facility] with noted choledocholithiasis and complete stone removal. There was stent placement in the ventral pancreatic duct (to decrease the risk of post-ERCP pancreatitis) and in the common bile duct. Pt was discharged with plan to follow up with General Surgery for cholecystectomy in about 2 weeks, and repeat ERCP in 3 months to remove the stent. Has been having persistent LUQ pain since the procedure, now with fever of 102. WBC elevated >78343, t bili of 5.6, Liver enzymes elevated, lipase elevated to 144, lipid panel pending for triglyceride level CT abdomen with noted migrated pancreatic duct stent into the ascending colon, distended gallbladder with cholelithiasis and common bile duct stent Admission Exam Per Admitting Provider General: Alert, oriented. Psych: Appropriate mood and affect Neuro: No gross deficits HEENT: NC/AT, scleral icterus noted CV: RRR, Normal s1, s2. No murmurs appreciated Resp: Breath sounds clear bilaterally, no increased effort of breathing. Abdomen: Soft, tender in LUQ Principal Dx & Hospital Course #1 = Principal Diagnosis (1) Acute cholangitis: (2) Elevated LFTs: (3) Splenomegaly: (4) Cholelithiasis: (5) Pancreatitis: Plan 37yoM with PMhx significant for GERD, Mood disorder, gout and is s/p pancreatic and biliary stent placement on 04/16/23 presenting with persistent LUQ abdominal pain and fever. Acute Cholangitis Pt had ERCP on 04/16at [facility] with noted choledocholithiasis and complete stone removal. There was stent placement in the ventral pancreatic duct (to decrease the risk of post-ERCP pancreatitis) and in the common bile duct.Pt was discharged with plan to follow up with General Surgery for cholecystectomy in about 2 weeks, and repeat ERCP in 3 months to remove the stent. Had been having persistent LUQ pain since the procedure, presented on 04/19 with fever of 102. WBC elevated >83623, t bili of 5.6, Liver enzymes elevated, lipase elevated to 144, lipid panel with normal triglyceride level CT abdomen with noted migrated pancreatic duct stent into the ascending colon, distended gallbladder with cholelithiasis and common bile duct stent Was treated with IV meropenem, IV fluids at 150 for possible pancreatitis (vague concern in the past for CHF though echo from 2019 with normal EF), pain control GI and general surgery consults: repeat ERCP while hospitalized, noted pus in biliary duct. Biliary stent was replaced. GI recommending clear liquids, abx for 10 days. Discharged with 8 days of ciprofloxacin/Flagyl. General Surgery recommending cholecystectomy next week on 04/24. Continue home medications for mood, reflux and muscle spasms as needed. Discharge Exam General: Alert, oriented. Psych: Appropriate mood and affect Neuro: No gross deficits HEENT: NC/AT, scleral icterus noted CV: RRR, Normal s1, s2. No murmurs appreciated Resp: Breath sounds clear bilaterally, no increased effort of breathing. Abdomen: Soft, tender in LUQ Updated Medication List Medication Instructions Recorded Confirmed Type escitalopram oxalate 20 mg tablet 20 mg PO QAM 04/19/23 04/19/23 History omeprazole 20 mg capsule,delayed 20 mg PO DAILYBB 04/19/23 04/19/23 History release tizanidine 4 mg tablet 4 mg PO Q6 PRN Muscle Spasm 04/19/23 04/19/23 History ciprofloxacin HCl 500 mg tablet 500 mg PO BID #16 tabs 04/21/23 Rx (Cipro) metronidazole 500 mg tablet 500 mg PO Q8H 8 days #24 tabs 04/21/23 Rx Hospital Stay Data Consultations 04/19/23 18:37 ED Decision to Admit Stat Procedures Performed Operation Date: 04/20/23 07:00 Actual Procedures p Endoscopic Retrograde Cholangiopancreato with stent exchange - Marcio Elizalde, Diagnostic Imagining Performed 04/19/23 16:11 CT abd pelvis IV con only Stat 04/20/23 08:19 [place] ERCP biliary ductal Routine Pending Results Patient Have Any Pending Studies at Discharge: No Discharge Instructions Given to Patient (Per Discharging Provider) You were admitted as you had an infection of your biliary duct system. We treated you with IV antibiotics for 2 days and you were seen by the henny roenterologist who did an ERCP once more. They cleaned out your duct system and replaced your stent. You noted that your pain improved. We are discharging you home with 8 more days of 2 antibiotics: Metronidazole 500mg to be taken 3 times a day and ciprofloxacin 500mg to be taken twice a day. We will send you new prescriptions for those. please STOP taking the antibiotic prescriptions you have at home. You are being discharged on a clear to full liquid diet. You can advance that as tolerated as long as you remain pain free. It was also recommended that your gallbladder be removed. General Surgery has you scheduled to have that done on 04/24/2023. Please follow up with them should you have any additional concerns. We also ask that you follow up with your primary care provider. Total Time Total Time Spent Total Time Spent (In Minutes): >30 minutes
--- NOTE | 2023-04-21 17:36 | Electrocardiogram Report ---
Test Reason : Blood Pressure : / mmHG Vent. Rate : 055 BPM Atrial Rate : 055 BPM P-R Int : 172 ms QRS Dur : 124 ms QT Int : 472 ms P-R-T Axes : 017 005 033 degrees QTc Int : 451 ms Sinus bradycardia Left ventricular hypertrophy with QRS widening Abnormal ECG When compared with ECG of 24-JUN-2018 11:51, QRS duration has increased Confirmed by Salazar Carranza ([id number]) on 04/21/2023 5:35:37 PM Referred By: REFERRED SELF Confirmed By:Narinder Carranza
== END 2023-04-21 15:53 | disposition home or self-care (01) | DRG 444 ==
LOC: ED 13:48 → 3W 19:39